=== PATIENT | female | born 1950 | race Caucasian/White ===

== ENCOUNTER 2017-06-28 06:14 | Inpatient (IN) | payer MEDICARE, OTHER, SELFPAY ==
[2017-06-28] VITALS (11 sets, daily range): BP systolic 121–148; BP diastolic 48–88; PULSE 71–82; RESP 16–22; TEMP 36.8–37; O2SAT 84–99; BMI 25.9; BMI 24.9
--- NOTE | 2017-06-28 06:34 | RAD_ITS ---
STUDY: X-RAY CHEST REASON FOR EXAM: Female, 66 years old. Nausea and vomitings. TECHNIQUE: Single AP portable view of the chest. Patient is rotated COMPARISON: 11/05/2015 FINDINGS: A right Mediport catheter tip remains in the mid SVC. There is hyperinflation of the lungs consistent with chronic obstructive lung disease (COPD). There is bibasilar chronic interstitial increased markings. There is no demonstrated pleural abnormality. Normal size heart. Normal mediastinum and andrea. Normal visualized pulmonary arteries. There is atherosclerotic tortuosity of the aortic arch and descending thoracic aorta. There is demineralization of the osseous structures. There is degenerative osteoarthritis of the bilateral shoulders. There is no demonstrated abnormality of the visualized soft tissue structures of the upper abdomen. RAD/Chest 1 View (Portable) IMPRESSION: Bibasilar chronic interstitial accentuation. COPD changes. No acute abnormality noted. Bilateral shoulder osteoarthritis. Electronically Signed: Makenzie Kern MD at 7:00 EDT Tel , Service support ,
--- NOTE | 2017-06-28 06:34 | EKG12_ITS ---
Test Reason : SOB Blood Pressure : / mmHG Vent. Rate : 083 BPM Atrial Rate : 083 BPM P-R Int : 138 ms QRS Dur : 070 ms QT Int : 368 ms P-R-T Axes : 068 -07 062 degrees QTc Int : 432 ms Normal sinus rhythm Normal ECG Confirmed by AGUSTÍN BROWN, AVELINO ([id number]), content editor KARLENE NEAL ([id number]) on 06/30/2017 2:48:25 PM Referred By: CLEMENTINA Confirmed By:AVELINO RANDOPLH MD
[2017-06-28 06:45] LABS: Absolute Lymphocyte Count 1.18 X10^3/ul (0.83-4.51); Eosinophil# 0.26 X10^3/uL; Eosinophils% 4.4 % (0-5); Hematocrit 33.8 % (37-47); Hemoglobin 11.2 g/dl (12.0-15.0); Lymphocyte # 1.18 X10^3/ul (4.0); Lymphocyte % 20.1 % (19-41); Mean Corp Hgb Conc 33.1 g/gl (32-36); Mean Corpuscular Hgb 29.8 pg (27.0-32.0); Mean Corpuscular Volume 89.9 fL (81-99); Monocyte# 0.45 X10^3/uL; Monocyte% 7.7 % (0-10); Neutrophil # 3.98 X10^3/uL (2.7-7.7); Neutrophil % 67.6 % (47-70); Platelet Count 211 K/mm3 (150-450); RBC Distribution Width CV 14.7 % (11.6-14.6); RBC Distribution Width SD 48.2 fl (35.1-43.9); Red Blood Count 3.76 M/mm3 (4.2-5.4); White Blood Count 5.9 K/mm3 (4.4-11.0)
[2017-06-28] MEDS: Ipratropium/Albuterol Sulfate 3 ML AMPUL.NEB INHALATION ×2 (06:47→13:54)
[2017-06-28] MEDS: Ondansetron 4 MG/2 ML Vial IV (06:48)
[2017-06-28 06:50] LABS: POSITIVE COUNT NO; POSITIVE DIFFERENTIAL NO; POSITIVE MORPHOLOGY NO
--- NOTE | 2017-06-28 07:09 | ED.VISSUMM ---
- ER Visit Summary Date of Service: 06/28/17 Chief Complaint: Flu History of Present Illness: The patient is a 66 F nausea, vomiting, and diarrhea that started today. She also reports a cough, fever, lightheadedness, and shortness of breath over the last 3 days. She believes her had the stomach flu and gave her the symptoms. She has a history of multiple myeloma and is on chemo. She also has a history of acid reflux, hypertension, and hypothyroidism. She is a former smoker. She denies any history of lung disease, congestive heart failure, or PE. Physical Examination: Vital signs unremarkable except for a pulse ox of 87% on room air. She is afebrile. She is alert and oriented and speaking in full sentences. Heart regular rate and rhythm. Lungs clear throughout all sequeda. Abdomen soft and nontender. Skin normal. Calves soft and supple. Pulses strong and equal. Test Results: EKG shows sinus rhythm at a rate of 83. No sign of acute ischemia or infarction pattern. Laboratory studies, influenza testing, and chest x-ray pending. Emergency Department Course and Treatment: Patient presents with infectious symptoms. This is likely a gastroenteritis or other viral syndrome. I am concerned because she has hypoxia. She is a former smoker, but denies home oxygen use or a history of hypoxia. She is not having chest pain or leg swelling. I suspect she has some underlying degree of COPD which is worse with the infectious process. She did receive oxygen by nasal cannula. She was 95% on 2 L. She was breathing comfortably. She received a DuoNeb as well as a fluid bolus and Zofran. Given her history of multiple myeloma and chemotherapy as well as her symptoms with hypoxia, she will likely need admission. Further results are pending at the time of this dictation. The oncoming physician will check the results, treat, and make the final disposition. Treatment Plan: As above Disposition: Pending evaluation Impression: 1. Nausea, vomiting, and diarrhea 2. Hypoxia This note was generated with [employer] software. It may contain incorrect words, spelling, and punctuation that were not noted in review of the chart prior to signing ED Disposition - Plan for ED Patient: Chief Complaint: Nausea/Vomiting/Diarrhea Referrals: Care Physician,No Primary [Primary Care Provider] -
[2017-06-28 07:12] LABS: Anion Gap 6 (5-15); BUN 17 mg/dL (7-18); BUN/Creat Ratio 21.7 RATIO (10-20); Calcium,Total 8.1 mg/dL (8.5-10.1); Chloride 101 mmol/L (98-107); Creatinine, Serum 0.78 mg/dL (0.55-1.02); EST Glomerular Filtration Rate 77 mL/min (>60); Est Glom Filt Rate - Afr Amer 94 mL/min (>60); Estimated Creatinine Clearance 48.45 ml/min; Glucose 97 mg/dL (74-106); Potassium 3.9 mmol/L (3.5-5.1); Sodium Level 134 mmol/L (136-145)
--- NOTE | 2017-06-28 07:14 | ED.DCSUM_ITS ---
- ER Visit Summary Date of Service: 06/28/17 Chief Complaint: Flu History of Present Illness: The patient is a 66 F nausea, vomiting, and diarrhea that started today. She also reports a cough, fever, lightheadedness, and shortness of breath over the last 3 days. She believes her had the stomach flu and gave her the symptoms. She has a history of multiple myeloma and is on chemo. She also has a history of acid reflux, hypertension, and hypothyroidism. She is a former smoker. She denies any history of lung disease , congestive heart failure, or PE. Physical Examination: Vital signs unremarkable except for a pulse ox of 87% on room air. She is afebrile. She is alert and oriented and speaking in full sentences. Heart regular rate and rhythm. Lungs clear throughout all esqueda. Abdomen soft and nontender. Skin normal. Calves soft and supple. Pulses strong and equal. Test Results: EKG shows sinus rhythm at a rate of 83. No sign of acute ischemia or infarction pattern. Laboratory studies, influenza testing, and chest x-ray pending. Emergency Department Course and Treatment: Patient presents with infectious symptoms. This is likely a gastroenteritis or other viral syndrome. I am concerned because she has hypoxia. She is a former smoker, but denies home oxygen use or a history of hypoxia. She is not having chest pain or leg swelling. I suspect she has some underlying degree of COPD which is worse with the infectious process. She did receive oxygen by nasal cannula. She was 95% on 2 L. She was breathing comfortably. She received a DuoNeb as well as a fluid bolus and Zofran. Given her history of multiple myeloma and chemotherapy as well as her symptoms with hypoxia, she will likely need admission. Further results are pending at the time of this dictation. The oncoming physician will check the results, treat, and make the final disposition. Treatment Plan: As above Disposition: Pending evaluation Impression: 1. Nausea, vomiting, and diarrhea 2. Hypoxia This note was generated with [employer] software. It may contain incorrect words, spelling, and punctuation that were not noted in review of the chart prior to signing ED Disposition - Plan for ED Patient: Chief Complaint: Nausea/Vomiting/Diarrhea Referrals: Care Physician,No Primary [Primary Care Provider] -
[2017-06-28 08:25] LABS: BNP,B-Type NATRIURETIC PEPTIDE 4.9 pg/mL (0-100)
--- NOTE | 2017-06-28 08:49 | HP.PCM_ITS ---
Problem List (1) Viral gastroenteritis Status: Acute (2) Influenza B Status: Acute (3) GERD (gastroesophageal reflux disease) Status: Chronic (4) HTN (hypertension) Status: Chronic (5) Hypothyroid Status: Chronic (6) Multiple myeloma Status: Chronic History of Present Illness Date of Admission: 06/28/17 Chief Complaint: Intractable with nausea vomiting and diarrhea The patient is a 66 year old F with past medical history is none for multiple myeloma currently in remission, hypertension GERD hypothyroidism who presents with intractable nausea vomiting associated with diarrhea. Patient symptoms started 3 days prior to her admission with generalized body aches as well as intermittent fever and chills. On the morning of her presentation woke up with sudden onset of nausea around 3 AM. Patient in addition had significant vomiting associated with diarrhea. She felt lightheaded and had to call the squad to be brought in to the ED. Evaluation in the ED was consistent with influenza B admitted to regular nursing floor for subsequent management. Past Medical History Past Medical History (Chronic Problems): Chronic Problems Hypothyroid (Chronic) GERD (gastroesophageal reflux disease) (Chronic) HTN (hypertension) (Chronic) Multiple myeloma (Chronic) Allergies No Known Allergies Allergy (Verified 06/28/17 06:18) Home Medications: Ambulatory Orders Medication Instructions Recorded Aspirin E.C. [Ecotrin] 81 mg PO DAILY@0800 05/14/14 Atenolol [Tenormin (beta anthony)] 25 mg PO DAILY 05/14/14 Levothyroxine [Synthroid] 125 mcg PO DAILY 05/14/14 Lisinopril [Zestril] 10 mg PO BID 05/14/14 Multivit with Calcium,Iron,Min 1 each PO DAILY 05/14/14 [Multiple Vitamins For Women] Omeprazole [Prilosec] 20 mg PO BID 05/14/14 Oxybutynin [Ditropan] 5 mg PO BID 05/14/14 buPROPion XL [Wellbutrin Xl] 150 mg PO DAILY 05/14/14 Acyclovir [Zovirax] 400 mg PO BID 11/05/15 Surgical History: no surgical history Psychiatric History: No pertinent psych hx CLUTCH REBUILDER History: No pertinent CLUTCH REBUILDER history Smoking Status: Former smoker - *Family History Maternal History Items: No pertinent history Review of Systems Constitutional: Reports: Fever, Malaise, Fatigue HEENT: Denies: Head Aches, Sinus Congestion, Sinus Drainage Cardiovascular: Denies: Chest Pain, Orthopnea, Palpitations, Paroxysmal Noc. Dyspnea Respiratory: Denies: Cough, Shortness of breath at rest, Shortness of breath upon exertion, Sputum production Gastrointestinal: Reports: Diarrhea, Nausea, Vomiting Genitourinary: Denies: Dysuria, Frequency, Hematuria, Urgency Musculoskeletal: Denies: Joint Pain, Joint Tenderness Skin: Denies: Rash Neurological: Denies: Focal weakness, Numbness, Tingling Psychiatric: Denies: Homicidal Ideations, Suicidal Ideations Hematologic/ Lymphatic: Denies: Easy Bruising, Easy Bleeding VTE Information - Inpt Only VTE Present on Admission: No VTE Mechan Device Prophylaxis: Knee High ERICK Hose VTE Pharm Prophylaxis ordered?: Yes Patient Problems: Active and Suspected Problems Viral gastroenteritis (Acute) Influenza B (Acute) Objective: GENERAL: Patient appears ill looking HEENT: Clear conjunctiva, NECK; supple, normal thyroid, CHEST: Diminished to auscultation bilaterally, HEART: Regular S1 S2, no audible murmurs ABDOMEN: soft, non-tender, normoactive bowel sounds, RECTAL: deferred EXTREMITIES: No edema, no clubbing, HOME APPLIANCES MECHANIC: Awake, no lateralizing signs. SKIN: No lesions no erythema, - Physical Exam Vital Signs Temp Pulse Resp BP Pulse Ox 98.4 F 79 18 148/69 H 99 06/28/17 06:15 06/28/17 06:59 06/28/17 06:59 06/28/17 06:15 06/28/17 06:59 Oxygen Flow Rate (L/min) 2 Oxygen Delivery Method Nasal Cannula Weight: 70.8 kg Body Mass Index (BMI) 25.9 Microbiology Past 72 Hours 06/28/17 06:45 Influenza Types A,B Direct FA (EMEKA) - Final Mucosa - Nose Influenzae B Laboratory Tests Past 24 Hrs 06/28/17 06/28/17 06/28/17 06:30 06:30 06:30 WBC 5.9 RBC 3.76 L Hgb 11.2 L Hct 33.8 L MCV 89.9 MCH 29.8 MCHC 33.1 RDW 14.7 H RDW Differential 48.2 H Plt Count 211 MPV 10.0 Immature Gran % (Auto) 0.200 Neut % (Auto) 67.6 Lymph % (Auto) 20.1 [place] % (Auto) 7.7 Eos % (Auto) 4.4 Baso % (Auto) 0.0 Absolute Neuts (auto) 4.0 Absolute Lymphs (auto) 1.18 Total Counted Not Reportable Sodium 134 L Potassium 3.9 Chloride 101 Carbon Dioxide 27.0 Anion Gap 6 BUN 17 Creatinine 0.78 Estim Creat Clear Calc 48.45 Est GFR (MDRD) Af Amer 94 Est GFR (MDRD) Non-Af 77 BUN/Creatinine Ratio 21.7 H Glucose 97 Calcium 8.1 L Troponin I < 0.02 B-Natriuretic Peptide 4.9 Assessment/Plan Active and Suspected Problems Viral gastroenteritis (Acute) Influenza B (Acute) Patient is a 66-year-old lady admitted with progressive generalized weakness associated with nausea vomiting diarrhea found to have influenza B on admission 1. Acute influenza B infection: Patient has been admitted to a regular nursing floor for symptomatic management with IV fluids pain meds as well as antinausea medications. Patient was started on Tamiflu on admission 2. Acute viral gastroenteritis secondary to patient influenza B infection 3. Hypertension-blood pressure controlled, home medications continued with dose adjustment as needed 4. Hypothyroidism-patient is on levothyroxine home dose continued 5. GERD on PPI 6. Mild hyponatremia secondary to hypovolemic hyponatremia as a result of above 7. DVT prophylaxis SC Lovenox Code Visit Inpatient E&M: 59318 Init Hosp L3
--- NOTE | 2017-06-28 08:49 | ED.DCSUM_ITS ---
- ER Visit Summary Date of Service: 06/28/17 Chief Complaint: [] History of Present Illness: The patient is a 66 F [] Physical Examination: [] Test Results: [] Emergency Department Course and Treatment: [] Dr. Elizabeth dictating the patient' s remained stable the lab studies chest x-rays generally unremarkable see those reports she remains hemodynamically stable given all of the above the hypoxia vomiting diarrhea the influenza positivity will arrange for admission for further management spoke with the hospitalist they will see the patient for admission Treatment Plan: [] Disposition: [] Admit stable Impression: [] Influenza, cough hypoxia on room air, vomiting diarrhea, history of multiple myeloma on chemotherapy This note was generated with [email or web address] dictation software. It may contain incorrect words, spelling, and punctuation that were not noted in review of the chart prior to signing ED Disposition - Plan for ED Patient: Chief Complaint: Nausea/Vomiting/Diarrhea Referrals: Care Physician,No Primary [NON-STAFF] -
[2017-06-28] MEDS: guaiFENesin 1,200 MG Tablet 1200 MG PO (12:29)
[2017-06-28] MEDS: buPROPion (XL) 150 MG TABLET.XL PO (12:29)
[2017-06-28] MEDS: Oseltamivir Phosphate 75 MG Capsule PO (12:29)
[2017-06-28] MEDS: Oxybutynin 5 MG Tablet PO (12:30)
[2017-06-28] MEDS: Acyclovir 200 MG Capsule 400 MG PO (12:30)
[2017-06-28] MEDS: Multivitamins,Ther W-Minerals Tablet 1 TABLET PO (12:30)
[2017-06-28] MEDS: Atenolol 25 MG Tablet PO (12:30)
[2017-06-28] MEDS: Pantoprazole Sodium 20 MG Tablet PO (12:30)
[2017-06-28] MEDS: Famotidine 20 MG Tablet PO ×2 (12:30)
[2017-06-28] MEDS: Lisinopril 10 MG Tablet PO (12:31)
[2017-06-28] MEDS: Enoxaparin 40 MG/0.4 ML Syringe SC (12:32)
--- NOTE | 2017-06-28 17:15 | NURSING ---
in to talk w/ patient as she verbalized to BOWLING TEACHER she wants to be discharged or she will leave anyway. This was also relayed to primary RN. Pt verbalized that she hasn't been able to sleep in day. Verbalized that she wants to be discharged that we are doing nothing for her she couldn't do at home. Discussed oxygen level with patient including that she required o2 to maintain adequate spo2. pt continued that she wanted discharge and refused to elaborate if there was something this nurse could do to ease her stay. This nurse verbalized she would inform for of her request for discharge. Patient also informed of right to Leave A.M.A. pt verbalized she wished for this nurse to inform Dr. Carreon that she is leaving not that she wants to. Pt informed this nurse will have A.M.A. forms brought back to her.
--- NOTE | 2017-06-28 17:33 | NURSING ---
pt adamant she is leaving to go home. states she is tired of not getting any rest/sleep and being disturbed every 15 minutes. educated pt on risks/ramifications/safety/breathing implications/impairments in health alterations. pt states i have been living with multiple myleoma for 7 years now, i could at any time so this is nothing new. pt states she phoned her spouse to come pick her up- pt states just wheel me to the ER and he can take me home. informed pt that if she chooses to leave it will be against medical advice and staff will not being wheeling pt to ER for discharge, pt will have to arrange per self. pt states are you done yet? pt refuses to wear oxygen, is alert and oriented and states she understands risks/ramifications. pt states she does not want nurse to discuss situation with her spouse this is supposed to be private. notified.
--- NOTE | 2017-06-28 17:47 | NURSING ---
SPOKE WITH FIDELINA NARAYANAN NURSING MACHINE PAN GREASER, UPDATED ON PT CONDITION/STATUS. AWAITING TO HEAR BACK FROM DR VARGAS WHO HAS BEEN PAGED BY MARCO NARAYANAN.
--- NOTE | 2017-06-28 17:48 | NURSING ---
paged though blacksmith hammer operator as no return call.
--- NOTE | 2017-06-28 17:54 | NURSING ---
DR. Rasheed paged, covering. He returned call and talking w/ Primary RN
[2017-06-28] MEDS: 0.9% NaCl Peripheral Flush Adult/Peds IV (18:09)
--- NOTE | 2017-06-28 18:10 | NURSING ---
pt to bathroom then back to bed. pt agrees to phone her spouse to provide him directions to come up to med-surg floor to pick her up for going home. pt giving male on telephone verbal directions and informs him he needs to come to the room to escort me, i'm not staying. hangs up the phone and states he isn't very happy pt declines to engage any further in conversation.
--- NOTE | 2017-06-29 11:01 | PCM.DC.SUM ---
Discharge Date and Diagnosis Date of Admission: 06/28/17 Date of Discharge: 06/28/17 - Primary Discharge Diagnosis influenza B - Secondary Discharge Diagnosis Chronic Problems Hypothyroid (Chronic) GERD (gastroesophageal reflux disease) (Chronic) HTN (hypertension) (Chronic) Multiple myeloma (Chronic) Hospital Course and Treatment Operations: None Summary of Care Provided: Patient is a 66-year-old lady admitted with progressive generalized weakness associated with nausea vomiting diarrhea found to have influenza B on admission 1. Acute influenza B infection: Patient has been admitted to a regular nursing floor for symptomatic management with IV fluids pain meds as well as antinausea medications. Patient was started on Tamiflu on admission, SIGNED OUT AMA ON THE SAME DAY OF HER ADMISSION 2. Acute viral gastroenteritis secondary to patient influenza B infection 3. Hypertension-blood pressure controlled, home medications continued with dose adjustment as needed 4. Hypothyroidism-patient is on levothyroxine home dose continued 5. GERD on PPI 6. Mild hyponatremia secondary to hypovolemic hyponatremia as a result of above 7. DVT prophylaxis SC Lovenox Home Medications: Medications to take at Discharge Aspirin E.C. [Ecotrin] 81 mg PO DAILY@0800 05/14/14 Atenolol [Tenormin (beta anthony)] 25 mg PO DAILY 05/14/14 Levothyroxine [Synthroid] 125 mcg PO DAILY 05/14/14 Lisinopril [Zestril] 10 mg PO BID 05/14/14 Multivit with Calcium,Iron,Min [Multiple Vitamins For Women] 1 each PO DAILY 05/14/14 Omeprazole [Prilosec] 20 mg PO BID 05/14/14 Oxybutynin [Ditropan] 5 mg PO BID 05/14/14 buPROPion XL [Wellbutrin Xl] 150 mg PO DAILY 05/14/14 Acyclovir [Zovirax] 400 mg PO BID 11/05/15 Primary Care Physician: Care Physician,No Primary [NON-STAFF] - Disposition: Against Medical Advice Minutes spent on discharge:: 45 Medical Necessity - Tobacco Use Smoking Status: Former smoker Meaningful Use Info Meaningful Use Diagnoses (Choose all that apply): None applicable Code Visit OBSV E&M: 83455 Observ/hosp same date L3
--- NOTE | 2017-06-29 11:06 | DS.PCM_ITS ---
Discharge Date and Diagnosis Date of Admission: 06/28/17 Date of Discharge: 06/28/17 - Primary Discharge Diagnosis influenza B - Secondary Discharge Diagnosis Chronic Problems Hypothyroid (Chronic) GERD (gastroesophageal reflux disease) (Chronic) HTN (hypertension) (Chronic) Multiple myeloma (Chronic) Hospital Course and Treatment Operations: None Summary of Care Provided: Patient is a 66-year-old lady admitted with progressive generalized weakness associated with nausea vomiting diarrhea found to have influenza B on admission 1. Acute influenza B infection: Patient has been admitted to a regular nursing floor for symptomatic management with IV fluids pain meds as well as antinausea medications. Patient was started on Tamiflu on admission, SIGNED OUT AMA ON THE SAME DAY OF HER ADMISSION 2. Acute viral gastroenteritis secondary to patient influenza B infection 3. Hypertension-blood pressure controlled, home medications continued with dose adjustment as needed 4. Hypothyroidism-patient is on levothyroxine home dose continued 5. GERD on PPI 6. Mild hyponatremia secondary to hypovolemic hyponatremia as a result of above 7. DVT prophylaxis SC Lovenox Home Medications: Medications to take at Discharge Aspirin E.C. [Ecotrin] 81 mg PO DAILY@0800 05/14/14 Atenolol [Tenormin (beta anthony)] 25 mg PO DAILY 05/14/14 Levothyroxine [Synthroid] 125 mcg PO DAILY 05/14/14 Lisinopril [Zestril] 10 mg PO BID 05/14/14 Multivit with Calcium,Iron,Min [Multiple Vitamins For Women] 1 each PO DAILY 03/30 Omeprazole [Prilosec] 20 mg PO BID 05/14/14 Oxybutynin [Ditropan] 5 mg PO BID 05/14/14 buPROPion XL [Wellbutrin Xl] 150 mg PO DAILY 05/14/14 Acyclovir [Zovirax] 400 mg PO BID 11/05/15 Primary Care Physician: Care Physician,No Primary [NON-STAFF] - Disposition: Against Medical Advice Minutes spent on discharge:: 45 Medical Necessity - Tobacco Use Smoking Status: Former smoker Meaningful Use Info Meaningful Use Diagnoses (Choose all that apply): None applicable Code Visit OBSV E&M: 03394 Observ/hosp same date L3
== END 2017-06-28 18:31 | disposition left against medical advice (07) | DRG 866 ==
LOC: ED 08:13 → MS3 09:30
PROVIDERS: Admitting Provider Internal Medicine; Emergency Provider Emergency Medicine; Family Provider Family Medicine; PCP Family Medicine; Visit Provider Internal Medicine
DX: J10.2 Influenza due to other identified influenza virus with gastrointestinal manifestations (principal); E87.1 Hypo-osmolality and hyponatremia; A08.4 Viral intestinal infection, unspecified; R09.02 Hypoxemia; E86.1 Hypovolemia; I10 Essential (primary) hypertension; E03.9 Hypothyroidism, unspecified; K21.9 Gastro-esophageal reflux disease without esophagitis; Z79.82 Long term (current) use of aspirin; Z79.899 Other long term (current) drug therapy; Z85.79 Personal history of other malignant neoplasms of lymphoid, hematopoietic and related tissues; Z92.21 Personal history of antineoplastic chemotherapy; Z87.891 Personal history of nicotine dependence
CPT/HCPCS: 71045; 80048; 83880; 84484; 85025; 87804; 93005; 94640; 94667; 99285; J7030; J7040; A4216; J2405

== ENCOUNTER 2017-06-30 21:03 | Emergency (ER) | payer MEDICARE, OTHER, SELFPAY ==
[2017-06-30 21:03] VITALS: BP 171/72; PULSE 99; RESP 20; TEMP 37.4; O2SAT 85; BMI 25.0
--- NOTE | 2017-06-30 21:23 | RAD_ITS ---
STUDY: X-RAY CHEST REASON FOR EXAM: Female, 66 years old. Weakness and flu TECHNIQUE: Frontal and lateral views of the chest. COMPARISON: 06/28/2017 FINDINGS: Right chest wall port. Clips in the neck. COPD without acute alveolar disease. There is no demonstrated pleural abnormality. Normal size heart. Normal mediastinum and andrea. Normal visualized pulmonary arteries. Normal visualized aortic arch and descending thoracic aorta. Normal visualized thoracic spine. Stable deformity of the left humerus. There is no demonstrated abnormality of the visualized soft tissue structures of the upper abdomen. RAD/Chest PA and Lateral IMPRESSION: COPD without acute alveolar disease. Electronically Signed: Gil Mcguire MD at 23:01 EDT Tel , Service support ,
--- NOTE | 2017-06-30 21:27 | ED.DCSUM_ITS ---
- ER Visit Summary Date of Service: 06/30/17 Chief Complaint: Generalized weakness History of Present Illness: The patient is a 66 F history of multiple myeloma. 2 days ago diagnosed with influenza B along with her also. She was actually admitted for 1-2 days. Basically now has been at home. Says she feels short of breath and generalized weakness. Also fever. Cough of yellowish phlegm. Also diarrhea. No vomiting today. No chest or abdominal pain. Physical Examination: Older female vital signs are stable except for a pulse ox of 85% on room air consistent with hypoxia. Temperature 994. She does not look septic. Clinically she looks dehydrated. No distress. H EENT exam dry mucous membranes. Neck nontender no lymphadenopathy. No JVD. Lungs clear to auscultation bilaterally. Heart regular rhythm no murmur. Chest wall nontender. Abdomen soft and nontender normal bowel sounds no peritoneal signs. Moving all 4 extremities. Calves nontender without edema or cords. Neurologically she is awake and alert without focal deficits. Skin unremarkable. Test Results: Chest x-ray chronic changes consistent with COPD but no acute process. No pneumonia. Read by myself and the radiologist. CBC shows a white count 3.5. H&H 10 and 32 which is her baseline. No bands. Electrolytes unremarkable. Normal gap and creatinine. Emergency Department Course and Treatment: Older female with influenza B. Clinically looks dehydrated. Will be treated with IV fluids and p.o. Tylenol. Treatment Plan: Multiple repeat exams patient is doing well currently 0005. She feels comfortable to be discharged home. She was given a liter fluid here and Tylenol. She was given a DuoNeb aerosol treatment. We week checked her pulse ox remained 85 [address] in a hallway but she tolerated this well. I long discussion with this she said they have a pulse ox at home and her normal oxygen level was 85. That is what it was when she was admitted the other day. She is not on any home O2. She denied discussed following up with her primary care physician and she may be able to qualify for home O2. Disposition: Discharge Impression: Recent diagnosis of influenza B Generalized weakness Hypoxia History of multiple myeloma Chronic hypoxia This note was generated with [employer]*ation software. It may contain incorrect words, spelling, and punctuation that were not noted in review of the chart prior to signing ED Disposition - Plan for ED Patient: Chief Complaint: General Illness Referrals: Addi Elizabeth MD [Primary Care Provider] -
[2017-06-30] MEDS: Ipratropium/Albuterol Sulfate 3 ML AMPUL.NEB INHALATION (21:33)
[2017-06-30 21:34] VITALS: PULSE 88; RESP 16
[2017-06-30 22:03] VITALS: BP 115/67; PULSE 92; RESP 14; O2SAT 95
[2017-06-30] MEDS: Acetaminophen 500 MG Tablet 1000 MG PO (22:19)
[2017-06-30] MEDS: 0.9% Normal Saline 1,000 ML 1000 ML IV (22:19)
[2017-06-30 22:22] LABS: Absolute Lymphocyte Count 1.56 X10^3/ul (0.83-4.51); Absolute Neutrophil Count 4.3 X10^3/uL (2.0-7.7); Eosinophil# 0.17 X10^3/uL; Eosinophils% 2.6 % (0-5); Hematocrit 32.5 % (37-47); Hemoglobin 10.8 g/dl (12.0-15.0); Lymphocyte # 1.56 X10^3/ul (4.0); Lymphocyte % 24.2 % (19-41); Mean Corp Hgb Conc 33.2 g/gl (32-36); Mean Corpuscular Hgb 29.8 pg (27.0-32.0); Mean Corpuscular Volume 89.5 fL (81-99); Mean Platelet Vol. 9.7 fl (6.2-12.0); Monocyte# 0.43 X10^3/uL; Monocyte% 6.7 % (0-10); Neutrophil # 4.28 X10^3/uL (2.7-7.7); Neutrophil % 66.3 % (47-70); Platelet Count 221 K/mm3 (150-450); RBC Distribution Width CV 14.6 % (11.6-14.6); Red Blood Count 3.63 M/mm3 (4.2-5.4); White Blood Count 6.5 K/mm3 (4.4-11.0)
[2017-06-30 22:26] LABS: POSITIVE COUNT NO; POSITIVE DIFFERENTIAL NO; POSITIVE MORPHOLOGY NO
[2017-06-30 22:39] LABS: Anion Gap 10 (5-15); BUN 12 mg/dL (7-18); BUN/Creat Ratio 17.2 RATIO (10-20); Calcium,Total 7.5 mg/dL (8.5-10.1); Chloride 100 mmol/L (98-107); EST Glomerular Filtration Rate 89 mL/min (>60); Est Glom Filt Rate - Afr Amer 107 mL/min (>60); Estimated Creatinine Clearance 48.45 ml/min; Glucose 79 mg/dL (74-106); Potassium 3.5 mmol/L (3.5-5.1); Sodium Level 136 mmol/L (136-145)
--- NOTE | 2017-07-01 00:09 | ED.DEP ---
ED Disposition - Plan for ED Patient: Disposition: Home or Assisted Living Chief Complaint: General Illness Instructions: ED Flu Referrals: Addi Elizabeth MD [Primary Care Provider] - As soon as possible Additional Instructions: Plenty of fluids and rest. Tylenol for fever. Call and follow-up your primary care physician. Your pulse ox equals 85% which is low. You can discuss with your primary care physician and they may be able do further testing to see if you qualify for home oxygen.
[2017-07-01 00:30] VITALS: BP 124/76; PULSE 81; RESP 18; O2SAT 95
== END 2017-07-01 00:31 | disposition home or self-care (01) ==
PROVIDERS: Emergency Provider Emergency Medicine; Family Provider Family Medicine; PCP Family Medicine
DX: J10.1 Influenza due to other identified influenza virus with other respiratory manifestations (principal); R53.1 Weakness; R09.02 Hypoxemia; E86.0 Dehydration; R19.7 Diarrhea, unspecified; Z79.82 Long term (current) use of aspirin; Z79.899 Other long term (current) drug therapy; Z85.79 Personal history of other malignant neoplasms of lymphoid, hematopoietic and related tissues
CPT/HCPCS: 36591; 71046; 80048; 85025; 94640; 96360; 99283; J7030

== ENCOUNTER 2017-07-02 13:39 | Emergency (ER) | payer MEDICARE, OTHER, SELFPAY ==
[2017-07-02 13:40] VITALS: BP 132/86; PULSE 70; RESP 16; TEMP 36.7; O2SAT 85; BMI 24.5
[2017-07-02 13:55] VITALS: BP 124/78; PULSE 72; RESP 18; O2SAT 97
[2017-07-02] MEDS: MethylPREDNISolone 125 MG/2 ML Vial IV (14:26)
[2017-07-02] MEDS: Ipratropium/Albuterol Sulfate 3 ML AMPUL.NEB INHALATION (14:27)
[2017-07-02 14:30] VITALS: PULSE 67; RESP 18
[2017-07-02 14:31] LABS: Absolute Lymphocyte Count 1.78 X10^3/ul (0.83-4.51); Absolute Neutrophil Count 3.9 X10^3/uL (2.0-7.7); Basophil# 0.01 X10^3/uL; Basophil% 0.2 % (0-1); Eosinophil# 0.18 X10^3/uL; Eosinophils% 2.9 % (0-5); Hematocrit 31.5 % (37-47); Hemoglobin 10.4 g/dl (12.0-15.0); Lymphocyte # 1.78 X10^3/ul (4.0); Lymphocyte % 28.3 % (19-41); Mean Corpuscular Hgb 29.5 pg (27.0-32.0); Mean Corpuscular Volume 89.5 fL (81-99); Monocyte% 6.3 % (0-10); Neutrophil % 61.8 % (47-70); POSITIVE COUNT NO; POSITIVE DIFFERENTIAL NO; POSITIVE MORPHOLOGY NO; Platelet Count 243 K/mm3 (150-450); RBC Distribution Width CV 14.8 % (11.6-14.6); RBC Distribution Width SD 47.9 fl (35.1-43.9); Red Blood Count 3.52 M/mm3 (4.2-5.4); White Blood Count 6.3 K/mm3 (4.4-11.0)
[2017-07-02 14:39] LABS: Anion Gap 6 (5-15); BUN 11 mg/dL (7-18); BUN/Creat Ratio 16.5 RATIO (10-20); Calcium,Total 7.7 mg/dL (8.5-10.1); Chloride 101 mmol/L (98-107); Creatinine, Serum 0.67 mg/dL (0.55-1.02); EST Glomerular Filtration Rate 94 mL/min (>60); Est Glom Filt Rate - Afr Amer 113 mL/min (>60); Estimated Creatinine Clearance 48.45 ml/min; Glucose 89 mg/dL (74-106); Potassium 3.5 mmol/L (3.5-5.1); Sodium Level 136 mmol/L (136-145)
--- NOTE | 2017-07-02 14:50 | RAD_ITS ---
STUDY: X-RAY CHEST REASON FOR EXAM: Female, 66 years old. Cough. Hypoxia. TECHNIQUE: PA and lateral views of the chest. COMPARISON: Comparison is made with prior study dated June 30, 2017. FINDINGS: EKG electrodes are seen. A right-sided portacatheter is seen with the tip at the junction of the superior vena cava and right atrium. Increased markings at the lung bases with areas of confluence worse on the right side. This is suggestive of either atelectasis and/or early infiltrate. Follow-up is recommended. Hyperinflation. There is no demonstrated pleural abnormality. Normal size heart. Normal mediastinum and andrea. Normal visualized pulmonary arteries. There is atherosclerotic tortuosity of the aortic arch and descending thoracic aorta. There is demineralization of the osseous structures. There is degenerative osteoarthritis of the bilateral shoulders. There is no demonstrated abnormality of the visualized soft tissue structures of the upper abdomen. RAD/Chest PA and Lateral IMPRESSION: Increased markings at the lung bases worse on the right side. This may represent either atelectasis and/or early infiltrates. Follow-up is recommended. Electronically Signed: Braulio Angelo MD at 15:21 EDT Tel [phone], Service support ,
[2017-07-02 15:06] VITALS: BP 130/67; PULSE 68; RESP 13; O2SAT 96
--- NOTE | 2017-07-02 15:15 | CM.ED ---
Addendum entered by Miesha Monteiro 07/02/17 16:00: Note: Patient states she is mobile in the home. She leaves the home to go grocery shopping and to appointments. Original Note: CM consulted for home oxygen setup. Patient states that she prefers to use [facility] for home oxygen. Clinicals and prescription faxed to [facility]. Josefa, with intake, took my number to provide to their respiratory therapists for coordination of delivery and setup. Awaiting return call. CM will continue to follow for safe discharge planning.
--- NOTE | 2017-07-02 15:44 | ED.DCSUM_ITS ---
- ER Visit Summary Date of Service: 07/02/17 Chief Complaint: Flu History of Present Illness: The patient is a [address] Elizabeth and Dr. salomon. She reports that she has a cough began approximately 1 week ago. Is productive yellow sputum without blood. She reports is actually improving gets a little better every day. However, she reports that she is lightheaded. This increases when she stands. She has not passed out. She does complain of severe shortness of breath with any exertion. She denies any chest pain. No fever or chills. She does complain of generalized weakness. The patient was admitted to the hospital for this earlier this week and signed out AGAINST MEDICAL ADVICE. She reports that her pulse ox has been in the 80s at home and she has never been on home O2. She quit smoking approximately 5 years ago. He has used an inhaler in the past. But does not have one at this time. Physical Examination: Vitals: 98.0, 132/86, 67, 18, 85% on room air which is hypoxic. General: Well-nourished and well-developed. Head: Normocephalic atraumatic. Neck: Supple, no lymphadenopathy. No JVD. Nontender. Cardiovascular: Regular rate and rhythm. No murmurs. Respiratory: No respiratory distress. Mild wheezing bilaterally with greatly decreased air movement. Abdominal: Soft, nontender, nondistended, normal bowel sounds. No guarding, rebound, or peritoneal signs. Back: Nontender. Extremities: Nontender, no edema. Skin: Normal color, no rash. Neurologic: Alert and oriented ?3. Cranial nerves II through XII are intact. Normal strength and sensation. Psych: Normal affect. Test Results: CBC is marked for an H&H 10.4 and 31.5. Chem-7 is more for calcium 7.7. Chest x-ray is read by the radiologist increased markings at the lung bases bilaterally right greater than left. May represent atelectasis and/ or early infiltrate. In my opinion it looks essentially no different than yesterday except for technique. I do not believe that the patient has a post influenza pneumonia. She reports that her cough is improving. Emergency Department Course and Treatment: She was given albuterol Atrovent aerosols. Her breathing is much improved. She is given Solu-Medrol and 500 cc bolus of normal saline IV. She is resting comfortably. Treatment Plan: The patient again would like to go home. However, I discussed her that I do not feel that is a good idea to go home with hypoxia. Case management was able to arrange for her to have home O2. Patient will also be discharged on a 5 day burst of prednisone and albuterol MDI. Instructed to follow-up with her primary care physician in 3-5 days if not improving. Return to the emergency department for any worsening symptoms. Disposition: To home in improved and stable condition. Impression: 1. Hypoxia. 2. COPD. 3. Influenza B. This note was generated with [employer] dictation software. It may contain incorrect words, spelling, and punctuation that were not noted in review of the chart prior to signing ED Disposition - Plan for ED Patient: Chief Complaint: Dizziness Instructions: ED Flu Prescriptions: Albuterol Inhaler [Ventolin Hfa] 1 - 2 puff INHALATION Q4H PRN PRN #1 inhaler PRN Reason: Wheezing Prednisone [Deltasone] 60 mg PO DAILY #15 tablet Referrals: Addi Elizabeth MD [Primary Care Provider] - 3-5 Days if not improving
--- NOTE | 2017-07-02 16:03 | CM.ED ---
Call placed to [facility]. Respiratory therapist, Girish, informed that the patient is ready for discharge. Girish states they will deliver a portable tank to the ED and follow-up with setup at home.
[2017-07-02 17:08] VITALS: BP 107/85; PULSE 69; RESP 18; O2SAT 94
--- NOTE | 2017-07-02 17:09 | ED.RN ---
PT GIVEN WRITTEN AND VERBAL DISCHARGE INSTRUCTIONS AND HOME GOING PRESCRIPTIONS. PT EDUCATED, AND QUESTIONS FROM PT ADDRESSED. PT PORT D/C AND COVERED WITH 2X2 GAUZE DRESSING AND PAPER TAPE. PT PLACED ON HOME O2 AND [facility] AT BEDSIDE TO EXPLAIN USE TO PT AND SPOUSE. PT DRESSES SELF AND AMBULATES OUT OF DEPT. WITHOUT NEED FOR ASSISTANCE FROM STAFF.
== END 2017-07-02 17:14 | disposition home or self-care (01) ==
PROVIDERS: Emergency Provider Emergency Medicine; Family Provider Family Medicine; PCP Family Medicine
DX: R09.02 Hypoxemia (principal); J10.1 Influenza due to other identified influenza virus with other respiratory manifestations; J44.9 Chronic obstructive pulmonary disease, unspecified; I10 Essential (primary) hypertension; E03.9 Hypothyroidism, unspecified; Z85.79 Personal history of other malignant neoplasms of lymphoid, hematopoietic and related tissues; K21.9 Gastro-esophageal reflux disease without esophagitis; Z87.891 Personal history of nicotine dependence; R42 Dizziness and giddiness
CPT/HCPCS: 36591; 71046; 80048; 85025; 94640; 99283; J7040; A4216

== ENCOUNTER 2017-08-16 05:49 | Emergency (ER) | payer MEDICARE, OTHER, SELFPAY ==
[2017-08-16] VITALS (8 sets, daily range): BP systolic 131–204; BP diastolic 59–86; PULSE 75–87; RESP 12–19; TEMP 36.7; O2SAT 93–96; BMI 24.3
--- NOTE | 2017-08-16 06:02 | EKG12_ITS ---
Test Reason : DIZZINESS Blood Pressure : / mmHG Vent. Rate : 074 BPM Atrial Rate : 074 BPM P-R Int : 142 ms QRS Dur : 072 ms QT Int : 396 ms P-R-T Axes : 074 -11 063 degrees QTc Int : 439 ms Normal sinus rhythm Normal ECG Confirmed by AGUSTÍN BROWN, AVELINO ([id number]), editor in chief KARLENE NEAL ([id number] on 08/26/2017 6:49:06 PM Referred By: ELIZA Confirmed By:AVELINO RANDOLPH MD
--- NOTE | 2017-08-16 06:02 | CT_ITS ---
STUDY: CT BRAIN WITHOUT CONTRAST REASON FOR EXAM: Female, 66 years old. Dizziness, nausea since 2 days. History of hypertension, multiple myeloma. RADIATION DOSAGE (If Supplied By Facility): CTDIvol = ( 44.99 ) mGy, DLP = ( 711.75 ) mGycm TECHNIQUE: Transaxial CT imaging of the brain was performed without administration of intravenous contrast material. Individualized dose optimization techniques were used for this CT. COMPARISON: None. FINDINGS: Normal soft tissue structures. Normal calvarium. There is moderate cerebral atrophy with widening of the extra-axial spaces and ventricular dilatation. There are areas of decreased attenuation within the white matter tracts of the supratentorial brain, consistent with microvascular disease changes. There is no acute abnormality of the basal ganglia, thalami and brainstem. There is moderate cerebellar atrophy. There is no intracranial hemorrhage. There are no findings of an acute ischemic infarction. There is acute left sphenoid sinusitis. There is mucoperiosteal inflammatory disease of the bilateral ethmoid and maxillary sinuses and portion of the right frontal sinus, consistent with mild chronic sinusitis. Partial opacification of mastoid air cells. Possible left TMJ arthritis. CT/Brain/Head without Contrast IMPRESSION: 1. Chronic involutional and white matter ischemic changes of the brain. 2. No acute intracranial abnormality noted. 3. Acute left sphenoid sinusitis. Electronically Signed: Makenzie Kern MD at 7:04 EDT Tel , Service support ,
--- NOTE | 2017-08-16 06:05 | RAD_ITS ---
STUDY: X-RAY CHEST REASON FOR EXAM: Female, 66 years old. Shortness of breath/dyspnea. TECHNIQUE: Single AP portable view of the chest. COMPARISON: 07/02/2017 FINDINGS: A right-sided Port-A-Cath with the tip in the distal SVC is unchanged. There is hyperinflation of the lungs consistent with chronic obstructive lung disease (COPD). Mildly increased markings/subsegmental atelectasis at the lung basis again demonstrated. There is no demonstrated pleural abnormality. Normal size heart. A stable benign right cardiophrenic density. Normal mediastinum and andrea. Normal visualized pulmonary arteries. There is atherosclerotic tortuosity of the aortic arch and descending thoracic aorta. There is demineralization of the osseous structures. There is degenerative osteoarthritis of the left shoulder. There is no demonstrated abnormality of the visualized soft tissue structures of the upper abdomen. RAD/Chest 1 View (Portable) IMPRESSION: 1. Stable-appearing chest. No acute cardiopulmonary abnormality noted. 2. COPD changes. Bibasilar chronic mild subsegmental atelectasis. 3. Left glenohumeral humeral osteoarthritis. Electronically Signed: Makenzie Kern MD at 6:33 EDT Tel , Service support ,
--- NOTE | 2017-08-16 06:06 | ED.VISSUMM ---
- ER Visit Summary Date of Service: 08/16/17 Chief Complaint: [] Dizziness, high blood pressure, shortness of breath History of Present Illness: The patient is a 66 F [] complaining of dizziness, elevated blood pressure, shortness of breath beginning 4 hours ago. Her reports that her pulse ox at home was 88% on room air. She is reportedly on oxygen at home only as needed. She does report a history of multiple myeloma. She reports being compliant with her lisinopril and her metoprolol. Denies chest pain. Denies fevers. No other complaints. Physical Examination: [] 66-year-old female in no acute distress. Blood pressure 204/86. Pulse ox 93% on 2 L nasal cannula. Remainder of vitals are within normal limits. Cardiovascular exam is regular rate and rhythm. Lungs are clear to auscultation. Abdomen is soft and nontender. There is no lower extremity edema. Remainder of exam is unremarkable. Test Results: [] EKG: Normal sinus rhythm, rate 74 without ischemic changes, ectopy or interval abnormalities. CT head: Negative per my interpretation. Labs: CBC, BMP, troponin all within normal limits. Emergency Department Course and Treatment: [] Patient given intravenous hydralazine for systolic blood pressure over 200. Patient had an initial workup for hypertensive urgency and dyspnea. Repeat blood pressure 30 minutes of her hydralazine was 130 systolic. Patient reported significant improvement in her dizziness. There was no signs of end organ damage based off the diagnostic and laboratory workup performed. Patient reported improvement in her shortness of breath. She was ambulated on 2 L of oxygen and maintained a pulse ox above 96%. She was then placed back in her bed with the oxygen off and maintain a pulse ox at 95%. She does report having oxygen at home to use as needed. I encouraged her to use it should she have any further dyspnea. At this time she has no indication for admission, feels improved after her blood pressure was improved with antihypertensive medication. She was encouraged to follow-up with her primary care physician and return if symptoms worsen. Treatment Plan: [] Follow-up with PCP. Disposition: [] Discharge, stable. Impression: [] Hypertensive urgency Dizziness This note was generated with [employer] software. It may contain incorrect words, spelling, and punctuation that were not noted in review of the chart prior to signing <Karol Tobin - Last Filed: 08/16/17 06:59> - ER Visit Summary Date of Service: 08/16/17 Test Results: CT brain has returned and shows chronic involutional white matter ischemic changes of the brain. No acute intracranial abnormality noted. Acute left sphenoid sinusitis. Emergency Department Course and Treatment: Patient was turned over to me with labs pending. She is resting comfortably. Treatment Plan: I instructed her to use decongestants for the sinusitis. Follow-up with her primary care physician in 3-5 days if not improving. Return to the emergency department for any worsening symptoms. Disposition: To home in improved and stable condition. This note was generated with [employer] dictation software. It may contain incorrect words, spelling, and punctuation that were not noted in review of the chart prior to signing <Aditya Norman - Last Filed: 08/16/17 07:07> ED Disposition <Karol Tobin - Last Filed: 08/16/17 06:59> <Aditya Norman - Last Filed: 08/16/17 07:07> - Plan for ED Patient: Disposition: Home or Assisted Living Chief Complaint: Dizziness Instructions: Controlling High Blood Pressure, ED Dizziness [facility] Referrals: Addi Elizabeth MD [Primary Care Provider] -
[2017-08-16 06:10] LABS: Absolute Lymphocyte Count 2.67 X10^3/ul (0.83-4.51); Absolute Neutrophil Count 2.3 X10^3/uL (2.0-7.7); Basophil# 0.02 X10^3/uL; Basophil% 0.3 % (0-1); Eosinophil# 0.35 X10^3/uL; Eosinophils% 5.9 % (0-5); Hematocrit 30.8 % (37-47); Hemoglobin 10.3 g/dl (12.0-15.0); Lymphocyte # 2.67 X10^3/ul (4.0); Mean Corp Hgb Conc 33.4 g/gl (32-36); Mean Corpuscular Hgb 30.3 pg (27.0-32.0); Mean Corpuscular Volume 90.6 fL (81-99); Mean Platelet Vol. 10.3 fl (6.2-12.0); Monocyte# 0.63 X10^3/uL; Monocyte% 10.6 % (0-10); Neutrophil # 2.25 X10^3/uL (2.7-7.7); POSITIVE COUNT NO; POSITIVE DIFFERENTIAL NO; POSITIVE MORPHOLOGY NO; Platelet Count 211 K/mm3 (150-450); RBC Distribution Width CV 14.4 % (11.6-14.6); RBC Distribution Width SD 46.5 fl (35.1-43.9); White Blood Count 5.9 K/mm3 (4.4-11.0)
[2017-08-16] MEDS: hydrALAZINE 20 MG/ML Vial 10 MG IV (06:10)
[2017-08-16 06:28] LABS: Anion Gap 8 (5-15); BUN 17 mg/dL (7-18); BUN/Creat Ratio 26.9 RATIO (10-20); Calcium,Total 8.2 mg/dL (8.5-10.1); Chloride 105 mmol/L (98-107); Creatinine, Serum 0.63 mg/dL (0.55-1.02); EST Glomerular Filtration Rate 99 mL/min (>60); Est Glom Filt Rate - Afr Amer 120 mL/min (>60); Estimated Creatinine Clearance 48.45 ml/min; Glucose 87 mg/dL (74-106); Potassium 3.7 mmol/L (3.5-5.1); Sodium Level 139 mmol/L (136-145)
--- NOTE | 2017-08-16 06:59 | ED.DEP ---
ED Disposition - Plan for ED Patient: Disposition: Home or Assisted Living Chief Complaint: Dizziness Instructions: Controlling High Blood Pressure, ED Dizziness [facility] Referrals: Addi Elizabeth MD [Primary Care Provider] -
== END 2017-08-16 07:15 | disposition home or self-care (01) ==
PROVIDERS: Emergency Provider Emergency Medicine; Family Provider Family Medicine; PCP Family Medicine
DX: I16.0 Hypertensive urgency (principal); R06.00 Dyspnea, unspecified; R42 Dizziness and giddiness; Z72.0 Tobacco use; Z85.79 Personal history of other malignant neoplasms of lymphoid, hematopoietic and related tissues; Z79.51 Long term (current) use of inhaled steroids; Z79.82 Long term (current) use of aspirin; Z79.899 Other long term (current) drug therapy
CPT/HCPCS: 70450; 71045; 80048; 84484; 85025; 93005; 96374; 99285; A4216

== ENCOUNTER 2021-02-08 13:32 | Emergency (ER) | payer MEDICARE, OTHER, SELFPAY ==
[2021-02-08 13:34] VITALS: BP 135/82; PULSE 77; RESP 16; TEMP 36.3; O2SAT 100; BMI 20.5
[2021-02-08 16:02] LABS: Bacteria 0 SEEN /hpf (None Seen); Mucous, Urine 0 SEEN /hpf (<or=2+); Red Blood Cells-Urine 0 SEEN /hpf (0-5)
--- NOTE | 2021-02-08 16:11 | EDS_ITS ---
HPI History of Present Illness Chief Complaint: Fall Narrative Narrative: Patient is a 70-year-old female with past medical history of multiple myeloma. She states she lives at home alone. She reports that she has vertigo and has to walk with a cane secondary to persistent balance issues. She states that she lost her balance and fell about 10 days ago. She states this was from a standing position and that she hurt her left foot/ankle. She denies striking her head any loss of consciousness or blood thinner use. Patient states that she feels she is not caring for herself well at home. She states she talked to her family doctor who advised her to come to the ER for possible senior care placement or home health assistance. PFSH PFSH Home Medications Cetirizine Hcl [Zyrtec] 10 mg PO DAILY 08/16/17 [History Last Taken Unknown] acyclovir 400 mg PO BID 08/16/17 [History Last Taken Unknown] albuterol sulfate [Proair Hfa (SP)Vent Pts] 1 - 2 puff INHALATION Q4H PRN PRN 08/16/17 [History Last Taken Unknown] aspirin 81 mg PO DAILY@0800 08/16/17 [History Last Taken Unknown] dexamethasone [Decadron] 4 mg PO PRN PRN 08/16/17 [History Last Taken Unknown] fdjmbxgb-ijh-eziq-FA-lutein [Centrum Silver Women Tablet] 1 ea PO DAILY 08/16/17 [History Last Taken Unknown] naproxen-diphenhydramine [Aleve Pm Caplet] 1 ea PO QHS PRN 08/16/17 [History Last Taken Unknown] omeprazole 20 mg PO BID 08/16/17 [History Last Taken Unknown] ondansetron [Zofran Odt] 8 mg PO Q8H PRN PRN 08/16/17 [History Last Taken Unknown] oxybutynin chloride 5 mg PO BID 08/16/17 [History Last Taken Unknown] Allergy/AdvReac Type Severity Reaction Status Date / Time No Known Allergies Allergy Verified 02/08/21 13:33 Social History Smoking Status: Former smoker ROS ROS ED Constitutional Constitutional ED: Denies chills or fever(s) Eyes Eyes: Denies change in vision ENT ENT ED: Denies sore throat Cardiovascular Cardiovascular: Denies chest pain Respiratory/Chest Respiratory/Chest: Denies cough or dyspnea Gastrointestinal Gastrointestinal: Denies abdominal pain, diarrhea, nausea or vomiting Genitourinary Genitourinary ED: Denies dysuria Musculoskeletal Musculoskeletal: Reports back pain and other Details: Positive left foot/ankle pain as well as right toe pain ; Denies myalgias Integumentary Reports Abrasions; Denies rash Neurologic Neurologic: Denies headache(s) Hematologic/Lymphatic Hematologic/Lymphatic: Denies easy bleeding or easy bruising EXAM Physical Exam Const Vital Signs: 02/08/21 13:34 Temperature 97.3 F L Temperature Source Temporal Pulse Rate 77 Respiratory Rate 16 Blood Pressure 135/82 H Blood Pressure Mean 99 Pulse Ox 100 Oxygen Delivery Method Room Air Positive well nourished and well developed General Appearance ED: well developed HEENT Reports moist mucous membranes HEENT Narrative: No signs of depressed or basilar skull fracture Eyes PERRL and EOMs intact bilaterally Neck supple Neck Narrative: No bony deformity or step-off of the cervical spine no midline pain with palpation Chest Wall palpation of chest normal Resp normal respiratory effort and clear to auscultation bilaterally Cardio regular rate and regular rhythm Rate: other Other Details: Radial pulses are +2-4 bilaterally are equal and symmetric GI normal to inspection, nondistended, normoactive bowel sounds, non-tender, non- distended and no masses GI Narrative: No voluntary guarding or rigidity no pulsatile mass Auscultation: normoactive bowel sounds Palpation: soft Back/Spine Back/Spine Narrative: No bony deformity or step-off of the thoracic or lumbar spine but there is midline pain with thoracic palpation Extremity Extremity Narrative: Patient has soft tissue swelling and ecchymosis to the left ankle over top the lateral malleolus and along the dorsal aspect of the left foot. This is consistent with her report of fall about 10 days ago. No bony deformity or joint effusion. Ankle ligaments are stable and Achilles tendon is intact. Patient also has ecchymosis swelling of the right fourth toe no obvious bony deformity. Pelvis is stable there is no shortening or external rotation of either lower extremity. Neuro oriented x3 and CN's II-XII intact bilaterally Sensorium / Orientation: alert Motor Exam: strength 5/5 throughout Psych Psych Narrative: Patient has a depressed/flat affect Skin no rashes or lesions noted MDM MDM MDM Narrative Medical decision making narrative: Patient presented to the ER with a mechanical fall that was 10 to 14days old. She states that she had concern that she may need senior care placement or home health care and cannot get into her family doctor to have this evaluated and therefore presented to the ER. A basic work- up was obtained which revealed no clinically significant lab abnormality. Imaging studies did show a distal fibula fracture on the left consistent with her swelling and report of fall. I discussed the case with orthopedics who states that as she has been able to ambulate on this for the past 10 to 41 days and it is stable in nature she can just have an Aircast placed. She was also evaluated by social work who discussed with patient the options of home health care as well as her son and will provide resources for them. However at this time she does not qualify for senior care placement and therefore will be discharged Lab Data Attestation: I reviewed the patient's lab results. Labs: Laboratory Results - last 24 hr 02/08/21 02/08/21 02/08/21 15:35 16:08 16:08 WBC 4.5 RBC 3.39 L Hgb 10.5 L Hct 30.7 L MCV 90.6 MCH 31.0 MCHC 34.2 RDW Std Deviation 49.0 H RDW Coeff of Willie 15.0 H Plt Count 127 L MPV 11.1 Immature Gran % (Auto) 0.900 Neut % (Auto) 73.1 H Lymph % (Auto) 12.8 L [place] % (Auto) 12.3 H Eos % (Auto) 0.7 Baso % (Auto) 0.2 Absolute Neuts (auto) 3.3 Absolute Lymphs (auto) 0.57 L Nucleated RBC % 0 Differential Comment Platelet Estimate SLT DEC RBC Morphology NORM C+C Sodium 137 Potassium 3.7 Chloride 105 Carbon Dioxide 25.0 Anion Gap 7 BUN 15 Creatinine 0.56 Estim Creat Clear Calc 43.70 Est GFR (MDRD) Af Amer 138 Est GFR (MDRD) Non-Af 114 BUN/Creatinine Ratio 26.9 H Glucose 87 Calcium 9.0 Magnesium 1.9 Urine Color Yellow Urine Clarity Clear Urine pH 6.0 Ur Specific [place] 1.015 Urine Protein Negative Urine Glucose (UA) Normal Urine Ketones Negative Urine Occult Blood Negative Urine Nitrite Negative Urine Bilirubin Negative Urine Urobilinogen Normal Ur Leukocyte Esterase 100 H Urine RBC 0 SEEN Urine WBC 0-5 SEEN Ur Squamous Epith Cells 0-5 SEEN Urine Bacteria 0 SEEN Urine Mucus 0 SEEN Radiography Diagnostic Testing: Clinical Impression(s) from Imaging Studies Ankle X-Ray 02/08/21 16:14 IMPRESSION: Acute mildly displaced distal fibular fracture. Electronically Signed: Harlan Davis MD at 17:31 EST , Service support , Foot X-Ray 02/08/21 16:14 IMPRESSION: 1. There is a healed fracture deformity in the distal shaft of the third metatarsal bone. No visualized acute fractures Electronically Signed: Harlan Davis MD at 17:36 EST , Service support , Foot X-Ray 02/08/21 16:14 IMPRESSION: Normal x-ray examination of the foot. Electronically Signed: Harlan Davis MD at 17:16 EST , Service support , Thoracic Spine X-Ray 02/08/21 16:14 IMPRESSION: Chronic appearing compression deformities of T11-L1 Electronically Signed: Harlan Davis MD at 17:22 EST , Service support , Discharge Plan Triage Chief Complaint: Fall ED Provider: Diallo Dent Dx/Rx/DC Orders Clinical Impression: Closed fracture of distal end of left fibula, Multiple myeloma Instructions: Treating Ankle Fractures, ED Fall Prevention Prescriptions: No Action acyclovir 400 MG tablet 400 mg PO BID RF: 0 aspirin 81 MG tablet 81 mg PO DAILY@0800 RF: 0 ondansetron [Zofran ODT] 8 MG tablet,disintegrating 8 mg PO Q8H PRN PRN (Reason: Nausea/Vomiting) RF: 0 dexamethasone [Decadron] 4 MG tablet 4 mg PO PRN PRN (Reason: CHEMO) RF: 0 omeprazole 20 MG capsule 20 mg PO BID RF: 0 albuterol sulfate [ProAir HFA] 1 PUFF inhaler 1 - 2 puff inhalation Q4H PRN PRN (Reason: COUGH/SOB) RF: 0 oxybutynin chloride 5 MG tablet 5 mg PO BID RF: 0 dyyyodli-zil-qzvf-FA-lutein [Centrum Silver Women] 1 EACH tablet 1 ea PO DAILY RF: 0 naproxen-diphenhydramine [Aleve PM] 1 EACH tablet 1 ea PO QHS PRN (Reason: Insomnia) RF: 0 Cetirizine Hcl [Zyrtec] 10 MG tablet 10 mg PO DAILY RF: 0 Other Ambulatory Orders: Home Health (Routine) Location: None Selected Ordered By: Dr. Diallo Dent Primary Care Provider: Addi Elizabeth Referrals: Addi Elizabeth MD [Primary Care Provider] - Justin Wei DO [STAFF PHYSICIAN] - 1 Week Disposition Disposition: Home, Self Care
[2021-02-08 16:13] LABS: Color, Urine Yellow (Yellow); Glucose, Dipstick Normal (Normal); Ketone-Dipstick Negative (Negative); Leukocyte Esterase-Dipstick 100 /ul (Negative); Nitrite-Dipstick Negative (Negative); Occult Blood-Urine Negative /ul (Negative); Protein-Dipstick Negative (Negative); Specific Gravity, Urine 1.015 (1.002-1.030); Urine Bilirubin Dipstick Negative (Negative); Urine Clarity Clear (Clear); Urine Urobilinogen Normal (Normal)
--- NOTE | 2021-02-08 16:14 | RAD_ITS ---
STUDY: X-RAY - LEFT FOOT CLINICAL: Female, 70 years old. pain TECHNIQUE: 3 view(s) of the foot. COMPARISON: None. FINDINGS: The bony structures are demineralized. Normal talus, calcaneus, and tarsal bones. Normal visualized subtalar, talonavicular, calcaneocuboid, tarsal and tarsometatarsal articulations. Normal metatarsi. Normal metatarsophalangeal joint of the great toe. Normal tibial and fibular sesamoid bones. Normal interphalangeal joint of the great toe. Normal phalanges of the great toe. Normal second through fifth metatarsophalangeal joints. Normal interphalangeal joints and phalanges of the lesser toes. The soft tissue structures are unremarkable. There is no demonstrated fracture. RAD/Foot min 3 Views IMPRESSION: Normal x-ray examination of the foot. Electronically Signed: Harlan Davis MD at 17:16 EST , Service support ,
--- NOTE | 2021-02-08 16:14 | RAD_ITS ---
STUDY: X-RAY - THORACIC SPINE REASON FOR EXAM: Female, 70 years old. pain TECHNIQUE: 2 view(s) of the thoracic spine were obtained. COMPARISON: None. FINDINGS: Normal kyphosis of the thoracic spine. Mild levoscoliosis is present. Chronic appearing compression deformities of T11-L1 are present with mild loss of height. Normal thoracic vertebrae and endplates. There is multilevel disc space narrowing of the thoracic spine. The bony structures are diffusely demineralized. The soft tissue structures are unremarkable. Right chest port noted. RAD/Thoracic Spine 2 Views IMPRESSION: Chronic appearing compression deformities of T11-L1 Electronically Signed: Harlan Davis MD at 17:22 EST , Service support ,
--- NOTE | 2021-02-08 16:14 | RAD_ITS ---
STUDY: X-RAY - RIGHT FOOT CLINICAL: Female, 70 years old. [PAIN S/P FALL FEW WEEKS AGO TECHNIQUE: 3 view(s) of the foot. COMPARISON: None. FINDINGS: There is a healed fracture deformity in the distal shaft of the third metatarsal bone. No visualized acute fractures. Degenerative changes are present in the DIP joint of the fourth digit. Normal talus, calcaneus, and tarsal bones. Normal visualized subtalar, talonavicular, calcaneocuboid, tarsal and tarsometatarsal articulations. Normal metatarsi. Normal metatarsophalangeal joint of the great toe. Normal tibial and fibular sesamoid bones. Normal interphalangeal joint of the great toe. Normal phalanges of the great toe. Normal second through fifth metatarsophalangeal joints. Normal interphalangeal joints and phalanges of the lesser toes. The soft tissue structures are unremarkable. RAD/Foot min 3 Views IMPRESSION: 1. There is a healed fracture deformity in the distal shaft of the third metatarsal bone. No visualized acute fractures Electronically Signed: Harlan Davis MD at 17:36 EST , Service support ,
--- NOTE | 2021-02-08 16:14 | RAD_ITS ---
STUDY: X-RAY - LEFT ANKLE REASON FOR EXAM: Female, 70 years old. pain TECHNIQUE: 3 view(s) of the ankle. COMPARISON: None. FINDINGS: An acute mildly displaced oblique fracture of the distal one third fibular shaft is present at the level of syndesmosis. The surrounding soft tissues are mildly swollen.. Normal medial and lateral malleoli. Normal tibiotalar articulation and ankle mortise. Normal visualized talus and calcaneus. The visualized subtalar, talonavicular, calcaneocuboid and tarsal articulations are normal. RAD/Ankle min 3 Views IMPRESSION: Acute mildly displaced distal fibular fracture. Electronically Signed: Harlan Davis MD at 17:31 EST , Service support ,
[2021-02-08 16:16] LABS: Absolute Lymphocyte Count 0.57 X10^3/uL (0.83-4.51); Absolute Neutrophil Count 3.3 X10^3/uL (2.0-7.7); Basophil# 0.01 X10^3/uL; Basophil% 0.2 % (0-1); Eosinophil# 0.03 X10^3/uL; Eosinophils% 0.7 % (0-5); Hematocrit 30.7 % (37-47); Hemoglobin 10.5 g/dL (12.0-15.0); Lymphocyte # 0.57 X10^3/ul (0.83-4.51); Lymphocyte % 12.8 % (19-41); Mean Corp Hgb Conc 34.2 g/dL (32-36); Mean Corpuscular Volume 90.6 fL (81-99); Mean Platelet Vol. 11.1 fl (6.2-12.0); Monocyte# 0.55 X10^3/uL; Monocyte% 12.3 % (0-10); NRBC Flagged by Analyzer 0 % (0-5); Neutrophil # 3.27 X10^3/uL (2.7-7.7); Neutrophil % 73.1 % (47-70); POSITIVE DIFFERENTIAL YES; Platelet Count 127 K/mm3 (150-450); Red Blood Count 3.39 M/mm3 (4.2-5.4); White Blood Count 4.5 K/mm3 (4.4-11.0)
[2021-02-08 16:20] LABS: Differential Indicated SCAN CRITERIA MET
[2021-02-08 16:26] LABS: Squamous Epithelial Cells - UA 0-5 SEEN /hpf (5-10); White Blood Cells 0-5 SEEN /hpf (0-5)
[2021-02-08 16:27] LABS: Anion Gap 7 (5-15); BUN 15 mg/dL (7-18); BUN/Creat Ratio 26.9 RATIO (10-20); Chloride 105 mmol/L (98-107); Creatinine, Serum 0.56 mg/dL (0.55-1.02); EST Glomerular Filtration Rate 114 mL/min (>60); Est Glom Filt Rate - Afr Amer 138 mL/min (>60); Glucose 87 mg/dL (74-106); Magnesium 1.9 mg/dL (1.6-2.6); Potassium 3.7 mmol/L (3.5-5.1); Sodium Level 137 mmol/L (136-145)
[2021-02-08 17:08] LABS: Platelet Estimate SLT DEC (ADEQ); Red Cell Morphology NORM C+C NORMAL (NORM C&C)
--- NOTE | 2021-02-08 18:25 | CM.ED ---
Addendum entered by Suzanna Rodgers 02/08/21 18:42: SW got verbal order from MD for Home Health senior living PT/ OT.SW entered it. Original Note: FARIBA Note Referral Source: MD Referral Reason: Discharge Planning MD stated that patient reports interest in SNF however, patient was walking and was able to stabilize herself appropriately. FARIBA met with patient. She lives in a 2 story home but resides on 1 story. Laundry is on the first store. [facility] Patient initially asked about assisted living but then asked about SNF. Patient said that she fell a couple of weeks ago. She reports that her is in the [facility] as he had a hip replacement. Patient gave this continuity writer verbal permission to speak to her son, Aren. Aren, patient's son, was called. He said that they had called the PCP today about getting home health or in home services for the patient but they were booked full so they advised to come to the ED. Aren said that patient is weak and not moving as well. Aren said that patient reports she fell trying to move the furniture. Aren said that patient soiled herself and she reports that is not unusual for her, per her report, but she has difficulty changing her clothes once soiled. Aren said that he feels his mom is not there and stubborn and not making the best decision. Aren said that while his father is in the [facility] patient needs daily assistance. Aren said that patient has had cancer for 20 years and they are always aware of any symptoms she reports and she said that she has dizzy spells. Aren said that he doesn't feel that patient needs a SNF but needs help in the house. FARIBA provided Aren with the following resources 1) [facility] for in home assessment 2) Private pay resource (Aren said that they could pay) 3) Medic alert through the hospital 4) Assisted Living resources 5) Home Health resources 6) Palliative Care resources and [facility] Resources for the Elderly. FARIBA updated patient that this continuity writer talked to patient and the plan is for home health and possible in home services. Patient voiced no concerns or issues with the discharge plan. FARIBA called Aren, patient's son. FARIBA discussed [facility] as option for dizziness but he reports issues with her getting there. He reports home PT/OT would be beneficial for patient. Aren said that they need some in home support until patient's gets home and then he will see how things go and decide if they need a higher level of care. FARIBA asked Aren about who he would like to make referral to for home health and he said well, I haven't done my due diligence and I would like to research them. FARIBA explained that was fine but then when patient is discharged the order for home health RN/PT/OT will be printed out so he can provide that to the home health agency. FARIBA explained that this continuity writer can make referral however, it is Thursday night and this worker is not back till Thursday. FARIBA explained that patient's discharge paperwork will include diagnosis for patient's home health provider. FARIBA advised if patient or he have any issues to call this continuity writer on Thursday. Aren asked about getting any services in the home faster and FARIBA explained that as home health has to be reviewed and in compliance with insurance regulations the only option for quick in home services would possibly be private pay. FARIBA provided patient with this continuity writer's contact number if additional needs arise. FARIBA updated RN and MD. Suzanna LOERA
[2021-02-08 18:31] VITALS: BP 137/63; PULSE 72; RESP 15; O2SAT 98
== END 2021-02-08 18:33 | disposition home or self-care (01) ==
PROVIDERS: Emergency Provider Emergency Medicine; PCP Family Medicine
DX: S82.832A Other fracture of upper and lower end of left fibula, initial encounter for closed fracture (principal); W19.XXXA Unspecified fall, initial encounter; Y93.9 Activity, unspecified; Y92.9 Unspecified place or not applicable; Y99.9 Unspecified external cause status; C90.01 Multiple myeloma in remission; R42 Dizziness and giddiness; Z79.82 Long term (current) use of aspirin; Z79.52 Long term (current) use of systemic steroids; Z79.1 Long term (current) use of non-steroidal anti-inflammatories (NSAID); Z87.891 Personal history of nicotine dependence
CPT/HCPCS: 72070; 73610; 73630; 80048; 81001; 83735; 85025; 99283; A4216

== ENCOUNTER 2021-03-07 12:14 | Observation (INO) | payer MEDICARE, OTHER, SELFPAY ==
[2021-03-07] VITALS (12 sets, daily range): BP systolic 95–138; BP diastolic 48–83; PULSE 60–92; RESP 12–20; TEMP 36.3–36.8; O2SAT 86–99; BMI 21.4; BMI 20.3
--- NOTE | 2021-03-07 13:07 | EKG12_ITS ---
Test Reason : GENERAL ILLNESS Blood Pressure : / mmHG Vent. Rate : 071 BPM Atrial Rate : 071 BPM P-R Int : 146 ms QRS Dur : 068 ms QT Int : 412 ms P-R-T Axes : 067 -04 063 degrees QTc Int : 447 ms Normal sinus rhythm with sinus arrhythmia Normal ECG Confirmed by PITO BROWN, MARIUSZ ([id number]), assistant film editor SARAH LEDESMA ([id number]) on 03/12/2021 9:32:31 AM Referred By: JENAE Confirmed By:MARIUSZ SHELDON MD
--- NOTE | 2021-03-07 13:08 | EX.ED.DYSGE1 ---
HPI History of Present Illness Chief Complaint: General Illness Informant: patient and family Onset/Context/Timing Onset: Today Current Severity: Mild Maximum Severity: Mild Narrative Narrative: Patient presents secondary to generalized weakness and diarrhea. She is currently undergoing weekly chemotherapy for multiple myeloma, last treatment on the . She states last evening she started not feeling well this morning was too weak to get up and go for her treatment. She denies fever or chills. No cough or congestion. No chest pain. No abdominal pain, nausea, or vomiting. She has had diarrhea and family states that she tends to have loose stools at baseline. She denies urinary symptoms. [facility] Medical History (Updated 03/07/21 @ 16:[address] Meghan Kovacs MD) GERD (gastroesophageal reflux disease) HTN (hypertension) Hypothyroid Multiple myeloma Home Medications acyclovir 400 mg PO BID 08/16/17 [History Last Taken 03/07/21] dexamethasone [Decadron] 4 mg PO PRN PRN 08/16/17 [History Last Taken 03/01/21] unakcuqe-jwr-zcru-FA-lutein [Centrum Silver Women Tablet] 1 ea PO DAILY 08/16/17 [History Last Taken 03/07/21] omeprazole 20 mg PO BID 08/16/17 [History Last Taken 03/07/21] bupropion HCl 100 mg PO BID 03/07/21 [History Last Taken 03/07/21] citalopram 20 mg PO DAILY 03/07/21 [History Last Taken 03/07/21] diphenoxylate-atropine 1 tab PO 4X/DAY PRN 03/07/21 [History Last Taken Unknown] levothyroxine [Synthroid] 125 mcg PO DAILY 03/07/21 [History Last Taken Unknown] lisinopril 20 mg PO DAILY 03/07/21 [History Last Taken 03/07/21] meclizine 25 mg PO BID PRN 03/07/21 [History Last Taken Unknown] metoprolol succinate 25 mg PO DAILY 03/07/21 [History Last Taken 03/07/21] selinexor [Xpovio] 80 mg PO FR 03/07/21 [History Last Taken 03/01/21] trazodone 50 mg PO QHS 03/07/21 [History Last Taken 03/06/21] Allergy/AdvReac Type Severity Reaction Status Date / Time No Known Allergies Allergy Verified 03/07/21 12:17 Social History Smoking Status: Former smoker ROS ROS ED Constitutional Constitutional ED: Denies chills or fever(s) Eyes Eyes: Denies change in vision ENT ENT ED: Denies sore throat Cardiovascular Cardiovascular: Denies chest pain Respiratory/Chest Respiratory/Chest: Denies cough or dyspnea Gastrointestinal Gastrointestinal: Reports diarrhea; Denies abdominal pain, nausea or vomiting Genitourinary Genitourinary ED: Denies dysuria Musculoskeletal Musculoskeletal: Denies back pain Integumentary Denies rash Neurologic Neurologic: Reports weakness; Denies headache(s) Allergic/Immunologic Allergic/Immunologic ED: Denies urticaria EXAM Physical Exam Const Vital Signs: 03/07/21 12:18 03/07/21 12:21 03/07/21 12:22 Temperature 98.3 F Temperature Source Temporal Pulse Rate 78 Respiratory Rate 18 Respiratory Effort Normal Non-Labored Respiratory Pattern Normal Blood Pressure 95/63 Blood Pressure Mean 73 Pulse Ox 91 96 Oxygen Delivery Method Room Air Nasal Cannula Oxygen Flow Rate (L/min) 2 03/07/21 14:05 03/07/21 15:02 03/07/21 15:13 Temperature 97.8 F Temperature Source Temporal Pulse Rate 63 66 Respiratory Rate 17 16 Respiratory Effort Respiratory Pattern Blood Pressure 123/61 H 134/48 H Blood Pressure Mean 81 76 Pulse Ox 97 86 98 Oxygen Delivery Method Nasal Cannula Room Air Nasal Cannula Oxygen Flow Rate (L/min) 2 2 03/07/21 16:24 03/07/21 16:42 03/07/21 16:43 Temperature Temperature Source Pulse Rate 60 Respiratory Rate 14 Respiratory Effort Respiratory Pattern Blood Pressure 135/76 H Blood Pressure Mean 95 Pulse Ox 94 86 99 Oxygen Delivery Method Room Air Room Air Nasal Cannula Oxygen Flow Rate (L/min) 2 Positive well nourished and well developed General Appearance ED: well developed HEENT Reports normocephalic and head/scalp atraumatic Eyes PERRL and EOMs intact bilaterally Neck supple Chest Wall inspection of chest normal and palpation of chest normal Resp normal respiratory effort and clear to auscultation bilaterally Cardio regular rate and regular rhythm GI normal to inspection, nondistended, normoactive bowel sounds and non-tender Palpation: soft Extremity normal to inspection Neuro oriented x3 Neuro Narrative: No focal neurologic deficits. Sensorium / Orientation: alert Psych mental status grossly normal Skin no rashes or lesions noted MDM MDM MDM Narrative Medical decision making narrative: Lab work, EKG, urinalysis, stool studies obtained. Blood cultures ordered. Stool studies obtained as patient has been having diarrhea. Lab Data Attestation: I reviewed the patient's lab results. Labs: Laboratory Results - last 24 hr 03/07/21 03/07/21 03/07/21 13:30 13:30 13:30 WBC 6.1 RBC 3.15 L Hgb 9.6 L Hct 29.0 L MCV 92.1 MCH 30.5 MCHC 33.1 RDW Std Deviation 52.8 H RDW Coeff of Willie 15.9 H Plt Count 175 MPV 10.9 Immature Gran % (Auto) 1.500 H Neut % (Auto) 74.6 H Lymph % (Auto) 11.7 L Walker % (Auto) 10.5 H Eos % (Auto) 1.5 Baso % (Auto) 0.2 Absolute Neuts (auto) 4.5 Absolute Lymphs (auto) 0.71 L Nucleated RBC % 0 Sodium 132 L Potassium 3.9 Chloride 101 Carbon Dioxide 28.0 Anion Gap 3 L BUN 16 Creatinine 0.71 Estim Creat Clear Calc 45.76 Est GFR (MDRD) Af Amer 105 Est GFR (MDRD) Non-Af 87 BUN/Creatinine Ratio 22.7 H Glucose 75 Lactic Acid 0.6 Calcium 7.9 L Total Bilirubin 0.50 Direct Bilirubin 0.09 AST 14 L ALT 15 Alkaline Phosphatase 87 Total Protein 6.5 Albumin 2.6 L Globulin 3.9 Urine Color Urine Clarity Urine pH Ur Specific [place] Urine Protein Urine Glucose (UA) Urine Ketones Urine Occult Blood Urine Nitrite Urine Bilirubin Urine Urobilinogen Ur Leukocyte Esterase Urine RBC Urine WBC Ur Squamous Epith Cells Urine Bacteria Urine Mucus 03/07/21 13:50 WBC RBC Hgb Hct MCV MCH MCHC RDW Std Deviation RDW Coeff of Willie Plt Count MPV Immature Gran % (Auto) Neut % (Auto) Lymph % (Auto) Walker % (Auto) Eos % (Auto) Baso % (Auto) Absolute Neuts (auto) Absolute Lymphs (auto) Nucleated RBC % Sodium Potassium Chloride Carbon Dioxide Anion Gap BUN Creatinine Estim Creat Clear Calc Est GFR (MDRD) Af Amer Est GFR (MDRD) Non-Af BUN/Creatinine Ratio Glucose Lactic Acid Calcium Total Bilirubin Direct Bilirubin AST ALT Alkaline Phosphatase Total Protein Albumin Globulin Urine Color Yellow Urine Clarity Sl. Cloudy Urine pH 7.0 Ur Specific [place] 1.005 Urine Protein Negative Urine Glucose (UA) Normal Urine Ketones Negative Urine Occult Blood Negative Urine Nitrite Negative Urine Bilirubin Negative Urine Urobilinogen Normal Ur Leukocyte Esterase Negative Urine RBC 0 SEEN Urine WBC 0 SEEN Ur Squamous Epith Cells 0-5 SEEN Urine Bacteria 0 SEEN Urine Mucus 0 SEEN Radiography Diagnostic Testing: Clinical Impression(s) from Imaging Studies Chest CTA 03/07/21 15:15 IMPRESSION: Normal CTA chest examination, without a demonstrated pulmonary embolism or arterial dissection. Electronically Signed: Job Haque MD at 16:05 EST Tel , Service support , EKG Initial EKG: Attestation: I personally reviewed and interpreted this EKG as follows: Interpretation: Sinus Rhythm (Sinus at 71 with no acute ischemia.) Treatment and Re-Evaluation Comments:: Lab work unremarkable. Urinalysis shows no sign of infection. EKG unremarkable. Nursing staff did take the patient off of oxygen and she did drop to 86% on room air. CTA of the chest is obtained that reveals no PE or infiltrate. Patient is taken back off of supplemental oxygen as she states that she is not on home oxygen and has no underlying lung disease. O2 sats dropped into the low to mid 80s. Patient is placed back on nasal care at this time and sats are in the mid 90s. I am unable to arrange home oxygen without underlying lung disease or Covid. Her Covid test for me was negative. I will speak with hospitalist regarding admission. Discharge Plan Triage Chief Complaint: General Illness ED Provider: Meghan Kovacs Dx/Rx/DC Orders Clinical Impression: Hypoxia, Weakness Prescriptions: No Action acyclovir 400 MG tablet 400 mg PO BID RF: 0 dexamethasone [Decadron] 4 MG tablet 4 mg PO PRN PRN (Reason: CHEMO) RF: 0 omeprazole 20 MG capsule 20 mg PO BID RF: 0 Centrum Silver Women 1 EACH tablet 1 ea PO DAILY RF: 0 trazodone 50 mg tablet 50 mg PO QHS RF: 0 lisinopril 20 mg tablet 20 mg PO DAILY RF: 0 diphenoxylate-atropine 2.5-0.025 mg tablet 1 tab PO 4X/DAY PRN (Reason: STOOL) RF: 0 bupropion HCl 100 mg tablet 100 mg PO BID RF: 0 citalopram 20 mg tablet 20 mg PO DAILY RF: 0 meclizine 25 mg tablet 25 mg PO BID PRN (Reason: Dizziness) RF: 0 levothyroxine [Synthroid] 125 mcg tablet 125 mcg PO DAILY RF: 0 metoprolol succinate 25 mg tablet extended release 24 hr 25 mg PO DAILY RF: 0 Xpovio 80 mg/week (40 mg x 2) tablet 80 mg PO FR RF: 0 Primary Care Provider: Addi Elizabeth Referrals: Addi Elizabeth MD [Primary Care Provider] - Disposition Disposition: Acute Care Hospital [facility]
[2021-03-07] MEDS: 0.9% Normal Saline 1,000 ML 150 ML IV ×2 (13:34→19:22)
[2021-03-07 13:37] LABS: Absolute Lymphocyte Count 0.71 X10^3/uL (0.83-4.51); Absolute Neutrophil Count 4.5 X10^3/uL (2.0-7.7); Basophil# 0.01 X10^3/uL; Basophil% 0.2 % (0-1); Eosinophil# 0.09 X10^3/uL; Eosinophils% 1.5 % (0-5); Hemoglobin 9.6 g/dL (12.0-15.0); Lymphocyte # 0.71 X10^3/ul (0.83-4.51); Lymphocyte % 11.7 % (19-41); Mean Corp Hgb Conc 33.1 g/dL (32-36); Mean Corpuscular Hgb 30.5 pg (27.0-32.0); Mean Corpuscular Volume 92.1 fL (81-99); Mean Platelet Vol. 10.9 fl (6.2-12.0); Monocyte# 0.64 X10^3/uL; Monocyte% 10.5 % (0-10); NRBC Flagged by Analyzer 0 % (0-5); Neutrophil # 4.54 X10^3/uL (2.7-7.7); Neutrophil % 74.6 % (47-70); Platelet Count 175 K/mm3 (150-450); RBC Distribution Width CV 15.9 % (11.6-14.6); RBC Distribution Width SD 52.8 fl (35.1-43.9); Red Blood Count 3.15 M/mm3 (4.2-5.4); White Blood Count 6.1 K/mm3 (4.4-11.0)
[2021-03-07 13:54] LABS: Bacteria 0 SEEN /hpf (None Seen); Mucous, Urine 0 SEEN /hpf (<or=2+); Red Blood Cells-Urine 0 SEEN /hpf (0-5); White Blood Cells 0 SEEN /hpf (0-5)
[2021-03-07 13:55] LABS: AST(SGOT) 14 U/L (15-37); Alanine Aminotransfer ALT/SGPT 15 U/L (13-56); Albumin, Serum 2.6 g/dL (3.2-5.0); Alkaline Phosphatase 87 U/L (45-117); Anion Gap 3 (5-15); BUN 16 mg/dL (7-18); BUN/Creat Ratio 22.7 RATIO (10-20); Bilirubin, Direct 0.09 mg/dL (0.00-0.30); Calcium,Total 7.9 mg/dL (8.5-10.1); Chloride 101 mmol/L (98-107); Creatinine, Serum 0.71 mg/dL (0.55-1.02); EST Glomerular Filtration Rate 87 mL/min (>60); Est Glom Filt Rate - Afr Amer 105 mL/min (>60); Estimated Creatinine Clearance 45.76 ml/min; Globulin 3.9 g/dL (2.2-4.2); Glucose 75 mg/dL (74-106); Potassium 3.9 mmol/L (3.5-5.1); Protein, Total 6.5 g/dL (6.4-8.2); Sodium Level 132 mmol/L (136-145)
[2021-03-07 13:56] LABS: Color, Urine Yellow (Yellow); Glucose, Dipstick Normal (Normal); Ketone-Dipstick Negative (Negative); Leukocyte Esterase-Dipstick Negative /ul (Negative); Nitrite-Dipstick Negative (Negative); Occult Blood-Urine Negative /ul (Negative); Protein-Dipstick Negative (Negative); Specific Gravity, Urine 1.005 (1.002-1.030); Urine Bilirubin Dipstick Negative (Negative); Urine Clarity Sl. Cloudy (Clear); Urine Urobilinogen Normal (Normal)
[2021-03-07 14:03] LABS: Squamous Epithelial Cells - UA 0-5 SEEN /hpf (5-10)
[2021-03-07 14:05] LABS: Lactic Acid 0.6 mmol/L (0.4-1.9)
--- NOTE | 2021-03-07 15:15 | CT_ITS ---
STUDY: CTA CHEST REASON FOR EXAM: Female, 70 years old. pulmonary embolism RADIATION DOSAGE (If Supplied By Facility): CTDIvol = ( 8.53 ) mGy, DLP = ( 309.30 ) mGycm TECHNIQUE: The examination was performed with the intravenous administration of IV 100mL Isovue-370. Post-processing of the angiographic images was performed, with multiplanar reformation and 3D reconstruction. Individualized dose optimization techniques were used for this CT. COMPARISON: None. FINDINGS: Right internal jugular chest port. Normal enhancement of the main pulmonary artery and right and left pulmonary arteries. Normal enhancement of the bilateral peripheral pulmonary arteries. There is no demonstrated pulmonary embolism. Normal thoracic aorta and visualized great vessels. There is no demonstrated aortic dissection. Normal heart and pericardium. Normal mediastinum. Normal hilar regions. Normal visualized trachea and bronchi. The lungs are well expanded. Mild emphysema. Some dependent bibasilar subsegmental atelectasis. No noncalcified nodule or mass. Normal pleura. Normal chest wall structures. Normal osseous structures. Normal visualized upper abdomen. CT/CTA Chest W/WO Contrast IMPRESSION: Normal CTA chest examination, without a demonstrated pulmonary embolism or arterial dissection. Electronically Signed: Job Haque MD at 16:05 EST Tel , Service support ,
--- NOTE | 2021-03-07 16:52 | PCM.HP.STD ---
HPI - General General Date of Admission: 03/07/21 HPI Narrative RICHARD BERRY, is a 70 F who presents with 1 week of weakness and the shakes and some mild diarrhea. The patient does have a history of multiple myeloma and has chemotherapy on Fridays. She received new therapy last week (Selinexor) and has not felt the same since and also noted that she did not take her thyroid medication for the past week because she got mixed up with her medication pillboxes. The patient does not have any fevers or chills cough or shortness of breath. She does not have any abdominal pain or nausea or vomiting. Patient did have flu infection about 3 years ago and was sent home with supplemental oxygen however she says she hardly needed to use it because it was too much. Patient presented to ED 87% on room air and she was put on 2 L and improved greatly however after being taken off she went to 86%. She did not have dyspnea throughout this. At least 6 attempts were made by nursing to get a accurate pulse ox, however all accurate readings returned very low despite being asymptomatic. CTA was done, and negative for pneumonia or embolism. [facility] Medical History GERD (gastroesophageal reflux disease) HTN (hypertension) Hypothyroid Multiple myeloma Home Medications acyclovir 400 mg PO BID 08/16/17 [History Last Taken 03/07/21] dexamethasone [Decadron] 4 mg PO PRN PRN 08/16/17 [History Last Taken 03/01/21] wwonupaq-wqf-neye-FA-lutein [Centrum Silver Women Tablet] 1 ea PO DAILY 08/16/17 [History Last Taken 03/07/21] omeprazole 20 mg PO BID 08/16/17 [History Last Taken 03/07/21] bupropion HCl 100 mg PO BID 03/07/21 [History Last Taken 03/07/21] citalopram 20 mg PO DAILY 03/07/21 [History Last Taken 03/07/21] diphenoxylate-atropine 1 tab PO 4X/DAY PRN 03/07/21 [History Last Taken Unknown] levothyroxine [Synthroid] 125 mcg PO DAILY 03/07/21 [History Last Taken Unknown] lisinopril 20 mg PO DAILY 03/07/21 [History Last Taken 03/07/21] meclizine 25 mg PO BID PRN 03/07/21 [History Last Taken Unknown] metoprolol succinate 25 mg PO DAILY 03/07/21 [History Last Taken 03/07/21] selinexor [Xpovio] 80 mg PO FR 03/07/21 [History Last Taken 03/01/21] trazodone 50 mg PO QHS 03/07/21 [History Last Taken 03/06/21] Allergy/AdvReac Type Severity Reaction Status Date / Time No Known Allergies Allergy Verified 03/07/21 12:17 Social History Smoking Status: Former smoker ROS ROS Narrative Positive for weakness and shakes and mild diarrhea which is chronic, there are no fevers shortness of breath cough chest pain or racing, abdominal pain dysuria hematuria No skin rashes or falls seizures or numbness tingling. Rest per HPI Vital Signs Vital Signs Vital Signs: 03/07/21 12:18 03/07/21 12:21 03/07/21 12:22 Temperature 98.3 F Temperature Source Temporal Pulse Rate 78 Respiratory Rate 18 Respiratory Effort Normal Non-Labored Respiratory Pattern Normal Blood Pressure 95/63 Blood Pressure Mean 73 Pulse Ox 91 96 Oxygen Delivery Method Room Air Nasal Cannula Oxygen Flow Rate (L/min) 2 03/07/21 14:05 03/07/21 15:02 03/07/21 15:13 Temperature 97.8 F Temperature Source Temporal Pulse Rate 63 66 Respiratory Rate 17 16 Respiratory Effort Respiratory Pattern Blood Pressure 123/61 H 134/48 H Blood Pressure Mean 81 76 Pulse Ox 97 86 98 Oxygen Delivery Method Nasal Cannula Room Air Nasal Cannula Oxygen Flow Rate (L/min) 2 2 03/07/21 16:24 03/07/21 16:42 03/07/21 16:43 Temperature Temperature Source Pulse Rate 60 Respiratory Rate 14 Respiratory Effort Respiratory Pattern Blood Pressure 135/76 H Blood Pressure Mean 95 Pulse Ox 94 86 99 Oxygen Delivery Method Room Air Room Air Nasal Cannula Oxygen Flow Rate (L/min) 2 Weight Weight: 129 lb 3.054 oz Body Mass Index (BMI) 21.4 Physical Exam Narrative Patient is very pleasant Const alert and no apparent distress General Appearance: cooperative HEENT normocephalic and head/scalp atraumatic Neck no lymphadenopathy and supple Resp normal respiratory effort and no use of accessory muscles Cardio regular rate, regular rhythm and S1 normal heart sound GI normal to inspection, nondistended, normoactive bowel sounds and soft to palpation Extremity normal to inspection Skin no rashes or lesions noted and no wounds Neuro Sensorium / Orientation: awake and alert Psych affect normal Results Lab / Micro Data Result Diagrams: 03/07/21 13:30 03/07/21 13:30 Labs: Laboratory Results - last 24 hr 03/07/21 13:30: WBC 6.1, RBC 3.15 L, Hgb 9.6 L, Hct 29.0 L, MCV 92.1, MCH 30.5, MCHC 33.1, RDW Std Deviation 52.8 H, RDW Coeff of Willie 15.9 H, Plt Count 175, MPV 10.9, Immature Gran % (Auto) 1.500 H, Neut % (Auto) 74.6 H, Lymph % (Auto) 11.7 L, [place] % (Auto) 10.5 H, Eos % (Auto) 1.5, Baso % (Auto) 0.2, Absolute Neuts (auto) 4.5, Absolute Lymphs (auto) 0.71 L, Nucleated RBC % 0 03/07/21 13:30: Sodium 132 L, Potassium 3.9, Chloride 101, Carbon Dioxide 28.0, Anion Gap 3 L, BUN 16, Creatinine 0.71, Estim Creat Clear Calc 45.76, Est GFR (MDRD) Af Amer 105, Est GFR (MDRD) Non-Af 87, BUN/Creatinine Ratio 22.7 H, Glucose 75, Calcium 7.9 L, Total Bilirubin 0.50, Direct Bilirubin 0.09, AST 14 L, ALT 15, Alkaline Phosphatase 87, Total Protein 6.5, Albumin 2.6 L, Globulin 3.9 03/07/21 13:30: Lactic Acid 0.6 03/07/21 13:50: Urine Color Yellow, Urine Clarity Sl. Cloudy, Urine pH 7.0, Ur Specific [place] 1.005, Urine Protein Negative, Urine Glucose (UA) Normal, Urine Ketones Negative, Urine Occult Blood Negative, Urine Nitrite Negative, Urine Bilirubin Negative, Urine Urobilinogen Normal, Ur Leukocyte Esterase Negative, Urine RBC 0 SEEN, Urine WBC 0 SEEN, Ur Squamous Epith Cells 0-5 SEEN, Urine Bacteria 0 SEEN, Urine Mucus 0 SEEN Micro: Microbiology 03/07/21 13:00 Stool Stool Lactoferrin - Final 03/07/21 13:30 Nasal Secretion SARS-CoV-2 Antigen (Rapid) - Final Radiology Impression Chest CTA 03/07/21 15:15 IMPRESSION: Normal CTA chest examination, without a demonstrated pulmonary embolism or arterial dissection. Electronically Signed: Job Haque MD at 16:05 EST Tel , Service support , Assessment & Plan Assessment/Plan (1) Acute respiratory failure with hypoxia: (2) Multiple myeloma: (3) Weakness: (4) Viral gastroenteritis: PLAN: 1. Acute Hypoxic Respiratory failure: No distress. Continue O2 therapy. This may be due in part to emphysema since she had previous tobacco use. Patient has been admitted to observation - regular nursing floor and will give her DuoNebs and she should be checked for home oxygen requirements. No sign of pneumonia. 2. Mild diarrhea which is chronic in nature. Monitor. No intravascular depletion at this point 3. Hypertension-blood pressure controlled, home medications continued with dose adjustment as needed 4. Hypothyroidism-patient is continued on levothyroxine home dose continued 5. Weakness, generalized. This is most likely due to chemotherapy versus missing her Synthroid dosing. Will encourage intensive nutritional support. 6. Mild hyponatremia secondary to hypovolemic hyponatremia as a result of poor intake. I would avoid fluids at this time unless she cannot take enough p.o. intake. UA is clear of infection 7. DVT prophylaxis SC Lovenox The patient is DNR/DNI We will continue diet Girish Helton MD Charges/Coding Visit Charges OBSV E&M: [id number] Initial observation care L2
--- NOTE | 2021-03-07 18:19 | PCS.PANDOC ---
PANDEMIC DOCUMENTATION INITIATED: Date: 03/07/2021 Time: [id number]
[2021-03-07] MEDS: 0.9% Saline Lock 10 ML Syringe IV (19:22)
[2021-03-07] MEDS: traZODone 50 MG Tablet PO (22:45)
[2021-03-07] MEDS: Pantoprazole Sodium 20 MG Tablet PO (22:45)
[2021-03-07] MEDS: buPROPion 100 MG Tablet PO (22:48)
--- NOTE | 2021-03-07 23:29 | EKG12_ITS ---
Test Reason : IRREG RHYTHM Blood Pressure : / mmHG Vent. Rate : 081 BPM Atrial Rate : 081 BPM P-R Int : 144 ms QRS Dur : 072 ms QT Int : 406 ms P-R-T Axes : 064 -17 063 degrees QTc Int : 471 ms Sinus rhythm with frequent Premature ventricular complexes Otherwise normal ECG When compared with ECG of 07-MAR-2021 13:16, MANUAL COMPARISON REQUIRED, DATA IS UNCONFIRMED Confirmed by PITO BROWN, MARIUSZ ([id number]), photography editor SARAH LEDESMA ([id number]) on 03/12/2021 10:11:40 AM Referred By: DR ASHLEY Confirmed By:MARIUSZ SHELDON MD
--- NOTE | 2021-03-07 23:41 | NURSING ---
2230. irreg HR noted on assessment, this RN asked electric power superintendent Dante for second opinion. pt is asymptomatic. EKG obtained, Darrianyplydia notified for new orders
[2021-03-08] VITALS (11 sets, daily range): BP systolic 113–143; BP diastolic 67–80; PULSE 58–81; RESP 16–18; TEMP 36.6–36.9; O2SAT 94–98
[2021-03-08] MEDS: Potassium Chloride Oral Tablet 10 MEQ PO (00:55)
[2021-03-08] MEDS: 0.9% Normal Saline 1,000 ML 150 ML IV ×2 (00:55→05:12)
[2021-03-08 01:23] LABS: Magnesium 1.7 mg/dL (1.6-2.6)
[2021-03-08] MEDS: Levothyroxine 125 MCG Tablet PO (05:11)
[2021-03-08] MEDS: Ipratropium/Albuterol Sulfate 3 ML AMPUL.NEB INHALATION ×3 (07:28→19:44)
[2021-03-08 08:25] LABS: Absolute Lymphocyte Count 0.82 X10^3/uL (0.83-4.51); Absolute Neutrophil Count 4.2 X10^3/uL (2.0-7.7); Basophil# 0.01 X10^3/uL; Basophil% 0.2 % (0-1); Eosinophil# 0.06 X10^3/uL; Eosinophils% 1.1 % (0-5); Hematocrit 28.5 % (37-47); Hemoglobin 9.4 g/dL (12.0-15.0); Lymphocyte # 0.82 X10^3/ul (0.83-4.51); Lymphocyte % 14.5 % (19-41); Mean Corpuscular Volume 94.1 fL (81-99); Mean Platelet Vol. 10.2 fl (6.2-12.0); Monocyte# 0.56 X10^3/uL; Monocyte% 9.9 % (0-10); NRBC Flagged by Analyzer 0 % (0-5); Neutrophil # 4.15 X10^3/uL (2.7-7.7); Neutrophil % 73.2 % (47-70); Platelet Count 199 K/mm3 (150-450); RBC Distribution Width CV 16.2 % (11.6-14.6); RBC Distribution Width SD 55.2 fl (35.1-43.9); Red Blood Count 3.03 M/mm3 (4.2-5.4); White Blood Count 5.7 K/mm3 (4.4-11.0)
[2021-03-08 08:49] LABS: ALB/GLOB Ratio 0.7 RATIO (0.9-2.4); AST(SGOT) 13 U/L (15-37); Alanine Aminotransfer ALT/SGPT 16 U/L (13-56); Albumin, Serum 2.4 g/dL (3.2-5.0); Alkaline Phosphatase 78 U/L (45-117); Anion Gap 6 (5-15); BUN 8 mg/dL (7-18); BUN/Creat Ratio 13.3 RATIO (10-20); Calcium,Total 7.4 mg/dL (8.5-10.1); Chloride 107 mmol/L (98-107); EST Glomerular Filtration Rate 104 mL/min (>60); Est Glom Filt Rate - Afr Amer 126 mL/min (>60); Estimated Creatinine Clearance 44.47 ml/min; Globulin 3.5 g/dL (2.2-4.2); Glucose 81 mg/dL (74-106); Potassium 3.7 mmol/L (3.5-5.1); Protein, Total 5.9 g/dL (6.4-8.2); Sodium Level 139 mmol/L (136-145)
[2021-03-08] MEDS: Pantoprazole Sodium 20 MG Tablet PO ×2 (09:08→21:30)
[2021-03-08] MEDS: Metoprolol(XL)Succ 25 MG Tablet PO (09:08)
[2021-03-08] MEDS: Citalopram 20 MG Tablet PO (09:08)
[2021-03-08] MEDS: buPROPion 100 MG Tablet PO ×2 (09:09→21:30)
[2021-03-08] MEDS: Lisinopril 20 MG Tablet PO (09:10)
--- NOTE | 2021-03-08 09:54 | PN.HOSP_ITS ---
Subjective Subjective Physical exam: General: Alert, Oriented x3, Cooperative, No apparent distress, Well developed HEENT: Atraumatic Oral: Moist Mucosa Neck: Supple Lungs: Clear to auscultation Cardiovascular: HS I+II, regular, no murmurs Abdomen: Bowel Sounds Present, Soft, Non Tender Extremities: No edema Skin: No rashes, No breakdown Neurological: Grossly intact Psych/Mental Status: Appropriate Follow-up on respiratory failure: Patient was seen and examined. She remains on 4 L of oxygen. She admits to history of smoking for a long time. Denied any cough or progressive shortness of breath. She denies seeing any licensed chemical spray technician for COPD. Objective Data Objective Data Vital Signs: Vital Signs Temp Pulse Resp BP Pulse Ox 98.0 F 81 18 114/69 94 03/08/21 08:44 03/08/21 09:08 03/08/21 09:02 03/08/21 08:44 03/08/21 08:44 Oxygen Flow Rate (L/min) 4 Oxygen Delivery Method Nasal Cannula Weight: 55.4 kg Body Mass Index (BMI) 20.3 Intake & Output: Intake and Output for Last 24 Hours 03/06/21 03/07/21 03/08/21 23:59 23:59 23:59 Intake Total 870 / 870 1475.0 / 1475.0 Balance 870 / 870 1475.0 / 1475.0 Lab / Micro Data Result Diagrams: 03/08/21 08:05 03/08/21 08:05 Labs: Laboratory Results - last 24 hr 03/07/21 13:30: WBC 6.1, RBC 3.15 L, Hgb 9.6 L, Hct 29.0 L, MCV 92.1, MCH 30.5, MCHC 33.1, RDW Std Deviation 52.8 H, RDW Coeff of Willie 15.9 H, Plt Count 175, MPV 10.9, Immature Gran % (Auto) 1.500 H, Neut % (Auto) 74.6 H, Lymph % (Auto) 11.7 L, [place] % (Auto) 10.5 H, Eos % (Auto) 1.5, Baso % (Auto) 0.2, Absolute Neuts (auto) 4.5, Absolute Lymphs (auto) 0.71 L, Nucleated RBC % 0 03/07/21 13:30: Sodium 132 L, Potassium 3.9, Chloride 101, Carbon Dioxide 28.0, Anion Gap 3 L, BUN 16, Creatinine 0.71, Estim Creat Clear Calc 45.76, Est GFR (MDRD) Af Amer 105, Est GFR (MDRD) Non-Af 87, BUN/Creatinine Ratio 22.7 H, Glucose 75, Calcium 7.9 L, Total Bilirubin 0.50, Direct Bilirubin 0.09, AST 14 L , ALT 15, Alkaline Phosphatase 87, Total Protein 6.5, Albumin 2.6 L, Globulin 3.9 03/07/21 13:30: Lactic Acid 0.6 03/07/21 13:50: Urine Color Yellow, Urine Clarity Sl. Cloudy, Urine pH 7.0, Ur Specific [place] 1.005, Urine Protein Negative, Urine Glucose (UA) Normal, Urine Ketones Negative, Urine Occult Blood Negative, Urine Nitrite Negative, Urine Bilirubin Negative, Urine Urobilinogen Normal, Ur Leukocyte Esterase Negative, Urine RBC 0 SEEN, Urine WBC 0 SEEN, Ur Squamous Epith Cells 0-5 SEEN, Urine Bacteria 0 SEEN, Urine Mucus 0 SEEN 03/08/21 01:00: Magnesium 1.7 03/08/21 08:05: WBC 5.7, RBC 3.03 L, Hgb 9.4 L, Hct 28.5 L, MCV 94.1, MCH 31.0, MCHC 33.0, RDW Std Deviation 55.2 H, RDW Coeff of Willie 16.2 H, Plt Count 199, MPV 10.2, Immature Gran % (Auto) 1.100 H, Neut % (Auto) 73.2 H, Lymph % (Auto) 14.5 L, [place] % (Auto) 9.9, Eos % (Auto) 1.1, Baso % (Auto) 0.2, Absolute Neuts (auto) 4.2, Absolute Lymphs (auto) 0.82 L, Nucleated RBC % 0 03/08/21 08:05: Sodium 139, Potassium 3.7, Chloride 107, Carbon Dioxide 26.0, Anion Gap 6, BUN 8, Creatinine 0.60, Estim Creat Clear Calc 44.47, Est GFR (MDRD) Af Amer 126, Est GFR (MDRD) Non-Af 104, BUN/Creatinine Ratio 13.3, Glucose 81, Calcium 7.4 L, Total Bilirubin 0.40, AST 13 L, ALT 16, Alkaline Phosphatase 78, Total Protein 5.9 L, Albumin 2.4 L, Globulin 3.5, Albumin/Globulin Ratio 0.7 L Micro: Microbiology 03/07/21 13:00 Stool Stool Lactoferrin - Final 03/07/21 13:00 Stool Enteric Bacteriology - Final 03/07/21 13:00 Stool C. difficile DNA Amplification - Final 03/07/21 23:10 Mucosa - Nose Influenza Types A,B Direct FA (EMEKA) - Final 03/07/21 13:30 Nasal Secretion SARS-CoV-2 Antigen (Rapid) - Final Radiography Diagnostic Testing: Radiology Impression Chest CTA 03/07/21 15:15 IMPRESSION: Normal CTA chest examination, without a demonstrated pulmonary embolism or arterial dissection. Electronically Signed: Job Haque MD at 16:05 EST Tel , Service support , Physical Exam Narrative Physical exam: General: Alert, Oriented x3, Cooperative, No apparent distress, Well developed, on 4 L of oxygen HEENT: Atraumatic Oral: Moist Mucosa Neck: Supple Lungs: Diminished to auscultation Cardiovascular: HS I+II, regular, no murmurs Abdomen: Bowel Sounds Present, Soft, Non Tender Extremities: No edema Assessment & Plan Assessment/Plan (1) Acute respiratory failure with hypoxia: (2) Multiple myeloma: QUALIFIERS: Multiple myeloma remission status: in remission Qualified Code(s): C90.01 - Multiple myeloma in remission (3) Weakness: (4) Viral gastroenteritis: PLAN: 1. Acute Hypoxic Respiratory failure likely secondary to progressive COPD Patient with no formal diagnosis of COPD History of chronic smoking Consult pulmonology to establish care; will need PFTs in the outpatient 2. Diarrhea, appears to have resolved, stool for C. difficile and enteric panel was negative 3. Hypertension, controlled, continue lisinopril and metoprolol 4. Hypothyroidism, continue on synthroid 5. Hyponatremia, acute, likely hypovolemic, resolved 6. Hypomagnesemia, replaced, recheck in am Charges/Coding Visit Charges Inpatient E&M: 35129 Subs Hosp L2
[2021-03-08 10:56] LABS: BNP,B-Type NATRIURETIC PEPTIDE 507.8 pg/mL (0-100)
--- NOTE | 2021-03-08 11:25 | ECHOD_ITS ---
Reason For Study: SOB Procedure This was a 2D Doppler, Color Flow transthoracic echocardiogram. Exam performed portable in patient room. Left Ventricle Moderate concentric left ventricular hypertrophy. The estimated ejection fraction is 55-60 %. Right Ventricle Normal right ventricle. Normal systolic function. Atria Normal left atrium. Normal right atrium. Mitral Valve The mitral valve is structurally normal. No prolapse or stenosis seen. No mitral valve insufficiency. Tricuspid Valve Normal tricuspid valve. Mild tricuspid valve insufficiency. Aortic Valve Normal aortic valve. Pulmonic Valve The pulmonic valve is not well visualized. Great Vessels Normal aortic root. Pericardium/Pleural No pericardial effusion. MMode/2D Measurements & Calculations LVIDd: 2.9 cm IVSd: 1.6 cm Ao root diam: 2.9 cm LVIDs: 1.9 cm LVPWd: 1.2 cm RVDd: 2.5 cm FS: 32.7 % LAV(MOD-bp): 31.4 ml LVAd ap4: 17.3 cm2 LVAd ap2: 18.1 cm2 LAV(MOD-bp) Indexed: 19.6 ml/m2 LVLd ap4: 6.7 cm LVLd ap2: 7.2 cm LAV(MOD-sp2): 36.7 ml EDV(MOD-sp4): 37.5 ml EDV(MOD-sp2): 37.8 ml LAV(MOD-sp4): 25.9 ml EDV(sp4-el): 37.8 ml EDV(sp2-el): 38.5 ml LVAs ap4: 9.9 cm2 LVAs ap2: 8.7 cm2 LVLs ap4: 6.1 cm LVLs ap2: 6.6 cm ESV(MOD-sp4): 14.3 ml ESV(MOD-sp2): 9.7 ml ESV(sp4-el): 13.6 ml ESV(sp2-el): 9.8 ml EF(MOD-sp4): 62.0 % EF(MOD-sp2): 74.2 % EF(sp4-el): 64.0 % SV(MOD-sp4): 23.3 ml SV(MOD-sp2): 28.0 ml SV(sp4-el): 24.2 ml LA dimension(2D): 3.5 cm LA A4 area: 11.7 cm2 RA A4 area: 9.5 cm2 Doppler Measurements & Calculations MV E max yong: 63.9 cm/sec Lat Peak E' Yong: 8.4 cm/sec Med Peak E' Yong: 8.4 cm/sec MV A max yong: 68.8 cm/sec E/E' lat: 7.6 E/E' med: 7.6 MV E/A: 0.93 Ao V2 max: 130.9 cm/sec LV V1 max: 97.3 cm/sec PA V2 max: 73.1 cm/sec Ao max P.9 mmHg LV V1 max P.8 mmHg TR max yong: 311.7 cm/sec TR max P.0 mmHg ECHO/Echo Complete Interpretation Summary The estimated ejection fraction is 55-60 %. RVSP estimated 45 mmhg No signficant cahnges from prior Echo in 10/2010 Ordering Physician: Jennifer Rubio Referring Physician: Addi Elizabeth Performed By: Kasandra Dunlap RDCS
[2021-03-08] MEDS: Diphenoxylate/Atrop 1 Tablet PO (11:39)
--- NOTE | 2021-03-08 12:02 | EX.PCM.CONCC ---
Assessment & Plan Assessment/Plan (1) Hypoxia: (2) Multiple myeloma: QUALIFIERS: Multiple myeloma remission status: in remission Qualified Code(s): C90.01 - Multiple myeloma in remission PLAN: RECOMMENDATIONS: 1. Initiate p.o. steroids and antibiotics 2. Wean oxygen as tolerated 3. Walking oximetry prior to discharge 4. Continue bronchodilators 5. Follow-up in 2 weeks with nurse practitioner 6. Outpatient work-up for COPD IMPRESSIONS: 1. Acute hypoxic respiratory insufficiency of unclear etiology Patient does have significant COPD changes on CT scan of the chest. Patient also has some groundglass opacities lower lobe. Patient's chemotherapy has not been associated with pneumonitis, but patient does have some groundglass opacities in the right base. Physical exam is not suggestive of congestive heart failure, so atypical pneumonia would be a consideration. Will initiate patient on p.o. steroids and antibiotics. Anticipate 5 days of Levaquin should be sufficient. Patient will need a work-up as an outpatient for COPD including PFT and walking oximetry. Patient does not have an elevated hemoglobin to suggest chronic hypoxia. Patient does have a slightly elevated bicarbonate that may suggest CO2 retention. Patient appears to have poor insight into her underlying lung disease. Additional work-up for hypoxia could be completed as an outpatient. Patient will need a walking oximetry prior to discharge. 2. Advanced age/hypertension/hypothyroidism/hypomagnesemia/multiple myeloma Complicates care, management, recovery and prognosis. Okay to continue with baseline medications from my perspective. HPI Consult Data Date of Consult: 03/08/21 HPI Narrative HPI Narrative: RICHARD BERRY is a 70 F, with past medical history listed below, who presents to [facility] [place] on 03/07/2021 secondary to generalized weakness and diarrhea. Patient does receive chemotherapy secondary to multiple myeloma with the last treatment on the . Patient states that she did not tolerate this well. Patient states that she felt that she was too weak to go for treatment. Patient denied any fever or chills. Patient has not had any productive cough or congestion. Patient denies any nausea or vomiting. Patient states she may have had diarrhea, but feels that she is loose at baseline. In the ER, patient was afebrile, normotensive but hypoxic. Patient was noted to be 86% on room air and was placed on 2 L nasal cannula. Patient reportedly does not use supplemental oxygen at baseline. Laboratory work-up showed a white blood cell count of 6.1, hemoglobin of 9.6 and platelets of 175. Chemistries were relatively unremarkable and the lactate was 0.6. UA was unremarkable. A CTA of the chest showed no PE or mediastinal lymphadenopathy. However, patient did have some scattered groundglass opacities at the base of the right lung on my evaluation. Patient had a walking oximetry in the ER and desaturated, so was admitted to the floor for further evaluation. Since being hospitalized, patient has continued to require supplemental oxygen. Patient states that she feels more strong than she did before, but otherwise does not feel much difference. Patient states she has used inhalers in the past intermittently with illnesses. Patient does not use any at baseline. Patient has not seen a cloud subject matter expert and does not believe that she has had a pulmonary function test. Patient does report a [id number] smoking history, but quit sometime ago. Patient does have Decadron therapy that she can take to help with tolerance of chemotherapy, but states she does not take steroids at baseline. Patient is unclear if this helps her breathing, but it does decrease her bone pain. Review of systems otherwise negative from a constitutional, HEENT, respiratory, cardiovascular, GI, genitourinary, musculoskeletal, skin, neurologic, psychiatric and hematologic system unless stated above. [facility] Medical History GERD (gastroesophageal reflux disease) HTN (hypertension) Hypothyroid Multiple myeloma Home Medications acyclovir 400 mg PO BID 08/16/17 [History Last Taken 03/07/21] dexamethasone [Decadron] 4 mg PO PRN PRN 08/16/17 [History Last Taken 03/01/21] hvewygki-vdo-brpm-FA-lutein [Centrum Silver Women Tablet] 1 ea PO DAILY 08/16/17 [History Last Taken 03/07/21] omeprazole 20 mg PO BID 08/16/17 [History Last Taken 03/07/21] bupropion HCl 100 mg PO BID 03/07/21 [History Last Taken 03/07/21] citalopram 20 mg PO DAILY 03/07/21 [History Last Taken 03/07/21] diphenoxylate-atropine 1 tab PO 4X/DAY PRN 03/07/21 [History Last Taken Unknown] levothyroxine [Synthroid] 125 mcg PO DAILY 03/07/21 [History Last Taken Unknown] lisinopril 20 mg PO DAILY 03/07/21 [History Last Taken 03/07/21] meclizine 25 mg PO BID PRN 03/07/21 [History Last Taken Unknown] metoprolol succinate 25 mg PO DAILY 03/07/21 [History Last Taken 03/07/21] selinexor [Xpovio] 80 mg PO FR 03/07/21 [History Last Taken 03/01/21] trazodone 50 mg PO QHS 03/07/21 [History Last Taken 03/06/21] Allergy/AdvReac Type Severity Reaction Status Date / Time No Known Allergies Allergy Verified 03/07/21 12:17 Social History Smoking Status: Former smoker ROS ROS Narrative See HPI Physical Exam Const alert and no apparent distress Constitutional Narrative: No conversational dyspnea General Appearance: cooperative and appears older than stated age HEENT normocephalic and head/scalp atraumatic Neck no lymphadenopathy and supple Chest Chest: abnormal inspection of the chest increased A-P diameter Resp no use of accessory muscles Auscultation: diminished lung sounds; Negative for rales, rhonchi or wheezes Cardio regular rate, regular rhythm and S1 normal heart sound GI normal to inspection, nondistended, normoactive bowel sounds and soft to palpation Extremity normal to inspection Skin no rashes or lesions noted and no wounds Neuro Sensorium / Orientation: awake and alert Psych affect normal Lab / Micro Data Result Diagrams: 03/08/21 08:05 03/08/21 08:05 Labs: Laboratory Results - last 24 hr 03/07/21 13:30: WBC 6.1, RBC 3.15 L, Hgb 9.6 L, Hct 29.0 L, MCV 92.1, MCH 30.5, MCHC 33.1, RDW Std Deviation 52.8 H, RDW Coeff of Willie 15.9 H, Plt Count 175, MPV 10.9, Immature Gran % (Auto) 1.500 H, Neut % (Auto) 74.6 H, Lymph % (Auto) 11.7 L, [place] % (Auto) 10.5 H, Eos % (Auto) 1.5, Baso % (Auto) 0.2, Absolute Neuts (auto) 4.5, Absolute Lymphs (auto) 0.71 L, Nucleated RBC % 0 03/07/21 13:30: Sodium 132 L, Potassium 3.9, Chloride 101, Carbon Dioxide 28.0, Anion Gap 3 L, BUN 16, Creatinine 0.71, Estim Creat Clear Calc 45.76, Est GFR (MDRD) Af Amer 105, Est GFR (MDRD) Non-Af 87, BUN/Creatinine Ratio 22.7 H, Glucose 75, Calcium 7.9 L, Total Bilirubin 0.50, Direct Bilirubin 0.09, AST 14 L, ALT 15, Alkaline Phosphatase 87, Total Protein 6.5, Albumin 2.6 L, Globulin 3.9 03/07/21 13:30: Lactic Acid 0.6 03/07/21 13:50: Urine Color Yellow, Urine Clarity Sl. Cloudy, Urine pH 7.0, Ur Specific [place] 1.005, Urine Protein Negative, Urine Glucose (UA) Normal, Urine Ketones Negative, Urine Occult Blood Negative, Urine Nitrite Negative, Urine Bilirubin Negative, Urine Urobilinogen Normal, Ur Leukocyte Esterase Negative, Urine RBC 0 SEEN, Urine WBC 0 SEEN, Ur Squamous Epith Cells 0-5 SEEN, Urine Bacteria 0 SEEN, Urine Mucus 0 SEEN 03/08/21 01:00: Magnesium 1.7 03/08/21 08:05: WBC 5.7, RBC 3.03 L, Hgb 9.4 L, Hct 28.5 L, MCV 94.1, MCH 31.0, MCHC 33.0, RDW Std Deviation 55.2 H, RDW Coeff of [place] 16.2 H, Plt Count 199, MPV 10.2, Immature Gran % (Auto) 1.100 H, Neut % (Auto) 73.2 H, Lymph % (Auto) 14.5 L, [place] % (Auto) 9.9, Eos % (Auto) 1.1, Baso % (Auto) 0.2, Absolute Neuts (auto) 4.2, Absolute Lymphs (auto) 0.82 L, Nucleated RBC % 0 03/08/21 08:05: Sodium 139, Potassium 3.7, Chloride 107, Carbon Dioxide 26.0, Anion Gap 6, BUN 8, Creatinine 0.60, Estim Creat Clear Calc 44.47, Est GFR (MDRD) Af Amer 126, Est GFR (MDRD) Non-Af 104, BUN/Creatinine Ratio 13.3, Glucose 81, Calcium 7.4 L, Total Bilirubin 0.40, AST 13 L, ALT 16, Alkaline Phosphatase 78, Total Protein 5.9 L, Albumin 2.4 L, Globulin 3.5, Albumin/Globulin Ratio 0.7 L 03/08/21 08:05: B-Natriuretic Peptide 507.8 H Micro: Microbiology 03/07/21 13:00 Stool Stool Lactoferrin - Final 03/07/21 13:00 Stool Enteric Bacteriology - Final 03/07/21 13:00 Stool C. difficile DNA Amplification - Final 03/07/21 23:10 Mucosa - Nose Influenza Types A,B Direct FA (EMEKA) - Final 03/07/21 13:30 Nasal Secretion SARS-CoV-2 Antigen (Rapid) - Final Radiology Impression Chest CTA 03/07/21 15:15 IMPRESSION: Normal CTA chest examination, without a demonstrated pulmonary embolism or arterial dissection. Electronically Signed: Job Haque MD at 16:05 EST Tel , Service support , Charges/Coding Visit Charges Inpatient E&M: 66816 Init Hosp L2
[2021-03-08] MEDS: predniSONE 20 MG Tablet 40 MG PO (13:15)
[2021-03-08] MEDS: levoFLOXacin 500 MG Tablet PO (13:15)
[2021-03-08] MEDS: Heparin Injection (Vial) 5,000 UNIT/ML VIAL 5000 UNIT SC ×2 (13:15→21:30)
--- NOTE | 2021-03-08 15:22 | CASEMGMT ---
ORACIO CM in to complete HSU form with patient. RN ARPITA explained HSU form to patient, patient voiced understanding. Patient signed HSU form and filed in chart. Patient provided with copy of signed HSU Form. Patient had no further questions or concerns at this time.
[2021-03-08] MEDS: traZODone 50 MG Tablet PO (21:30)
[2021-03-09] VITALS (15 sets, daily range): BP systolic 120–147; BP diastolic 56–78; PULSE 58–71; RESP 16–20; TEMP 36.4–36.9; O2SAT 84–98
[2021-03-09] MEDS: Levothyroxine 125 MCG Tablet PO (05:33)
[2021-03-09] MEDS: levoFLOXacin 500 MG Tablet PO (05:33)
[2021-03-09] MEDS: Heparin Injection (Vial) 5,000 UNIT/ML VIAL 5000 UNIT SC ×3 (05:33→21:32)
[2021-03-09 06:34] LABS: ALB/GLOB Ratio 0.7 RATIO (0.9-2.4); AST(SGOT) 17 U/L (15-37); Alanine Aminotransfer ALT/SGPT 14 U/L (13-56); Albumin, Serum 2.6 g/dL (3.2-5.0); Alkaline Phosphatase 83 U/L (45-117); Anion Gap 2 (5-15); BUN 9 mg/dL (7-18); BUN/Creat Ratio 13.6 RATIO (10-20); Calcium,Total 8.2 mg/dL (8.5-10.1); Chloride 110 mmol/L (98-107); Creatinine, Serum 0.66 mg/dL (0.55-1.02); EST Glomerular Filtration Rate 93 mL/min (>60); Est Glom Filt Rate - Afr Amer 113 mL/min (>60); Estimated Creatinine Clearance 44.47 ml/min; Globulin 3.8 g/dL (2.2-4.2); Glucose 98 mg/dL (74-106); Magnesium 2.5 mg/dL (1.6-2.6); Potassium 4.7 mmol/L (3.5-5.1); Protein, Total 6.4 g/dL (6.4-8.2); Sodium Level 140 mmol/L (136-145)
--- NOTE | 2021-03-09 08:12 | PN.CC_ITS ---
Assessment & Plan Assessment/Plan (1) Hypoxia: (2) Multiple myeloma: QUALIFIERS: Multiple myeloma remission status: in remission Qualified Code(s): C90.01 - Multiple myeloma in remission PLAN: RECOMMENDATIONS: 1. Complete 5 days of p.o. steroids and antibiotics 2. Walking oximetry prior to discharge 3. Okay to discharge on Combivent from a pulmonary perspective 4. Okay to discharge if able to tolerate walking without supplemental oxygen or able to arrange for supplemental oxygen 5. Follow-up in 2 weeks with nurse practitioner 6. Outpatient work-up for COPD IMPRESSIONS: 1. Acute hypoxic respiratory insufficiency of unclear etiology Patient does have significant COPD changes on CT scan of the chest. Patient also has some groundglass opacities lower lobe. Patient's chemotherapy has not been associated with pneumonitis, but patient does have some groundglass opacities in the right base. Physical exam is not suggestive of congestive heart failure, so atypical pneumonia would be a consideration. Will continue patient on p.o. steroids and antibiotics for 5 days. Patient will need a work- up as an outpatient for COPD including PFT and walking oximetry. Patient does not have an elevated hemoglobin to suggest chronic hypoxia. Patient does have a slightly elevated bicarbonate that may suggest CO2 retention. Patient appears to have poor insight into her underlying lung disease. Additional work-up for hypoxia could be completed as an outpatient. Patient will need a walking oximetry prior to discharge. 2. Advanced age/hypertension/hypothyroidism/hypomagnesemia/multiple myeloma Complicates care, management, recovery and prognosis. Okay to continue with baseline medications from my perspective. Subjective Subjective Patient subjectively feels slightly improved compared to yesterday. Patient did require supplemental oxygen overnight with sleep, but was saturating 98%. Patient states she feels strong enough to go home. Patient is not reporting any adverse effects to new medication. Objective Data Objective Data Vital Signs: Vital Signs Temp Pulse Resp BP Pulse Ox 36.8 C 58 L 18 147/61 H 94 03/09/21 05:53 03/09/21 05:53 03/09/21 05:53 03/09/21 05:53 03/09/21 07:11 Oxygen Flow Rate (L/min) [ 2 AMBULATING with Oxygen #1] Oxygen Flow Rate (L/min) [ 0 AMBULATING on Room Air] Oxygen Flow Rate (L/min) [At 0 REST on Room Air] Oxygen Flow Rate (L/min) 2 Oxygen Delivery Method Nasal Cannula Weight: 55.4 kg Body Mass Index (BMI) 20.3 Intake & Output: Intake and Output for Last 24 Hours 03/07/21 03/08/21 03/09/21 23:59 23:59 23:59 Intake Total 870 / 870 2466.5 / 2666.5 612.5 / 612.5 Balance 870 / 870 2466.5 / 2666.5 612.5 / 612.5 Lab / Micro Data Result Diagrams: 03/08/21 08:05 03/09/21 05:10 Labs: Laboratory Results - last 24 hr 03/08/21 08:05: WBC 5.7, RBC 3.03 L, Hgb 9.4 L, Hct 28.5 L, MCV 94.1, MCH 31.0, MCHC 33.0, RDW Std Deviation 55.2 H, RDW Coeff of [place] 16.2 H, Plt Count 199, MPV 10.2, Immature Gran % (Auto) 1.100 H, Neut % (Auto) 73.2 H, Lymph % (Auto) 14.5 L, [place] % (Auto) 9.9, Eos % (Auto) 1.1, Baso % (Auto) 0.2, Absolute Neuts (auto) 4.2, Absolute Lymphs (auto) 0.82 L, Nucleated RBC % 0 03/08/21 08:05: Sodium 139, Potassium 3.7, Chloride 107, Carbon Dioxide 26.0, Anion Gap 6, BUN 8, Creatinine 0.60, Estim Creat Clear Calc 44.47, Est GFR (MDRD) Af Amer 126, Est GFR (MDRD) Non-Af 104, BUN/Creatinine Ratio 13.3, Glucose 81, Calcium 7.4 L, Total Bilirubin 0.40, AST 13 L, ALT 16, Alkaline Phosphatase 78, Total Protein 5.9 L, Albumin 2.4 L, Globulin 3.5, Albumin/Globulin Ratio 0.7 L 03/08/21 08:05: B-Natriuretic Peptide 507.8 H 03/09/21 05:10: Sodium 140, Potassium 4.7, Chloride 110 H, Carbon Dioxide 28.0, Anion Gap 2 L, BUN 9, Creatinine 0.66, Estim Creat Clear Calc 44.47, Est GFR (MDRD) Af Amer 113, Est GFR (MDRD) Non-Af 93, BUN/Creatinine Ratio 13.6, Glucose 98, Calcium 8.2 L, Magnesium 2.5, Total Bilirubin 0.30, AST 17, ALT 14, Alkaline Phosphatase 83, Total Protein 6.4, Albumin 2.6 L, Globulin 3.8, Albumin/Globulin Ratio 0.7 L Micro: Microbiology 03/07/21 14:00 Blood Culture (Wb) - Left Hand Blood Culture - Preliminary No growth in 48 hours. 03/07/21 13:30 Blood Culture (Wb) - Port Blood Culture - Preliminary No growth in 48 hours. 03/07/21 13:00 Stool Stool Lactoferrin - Final 03/07/21 13:00 Stool Enteric Bacteriology - Final 03/07/21 13:00 Stool C. difficile DNA Amplification - Final 03/07/21 23:10 Mucosa - Nose Influenza Types A,B Direct FA (EMEKA) - Final 03/07/21 13:30 Nasal Secretion SARS-CoV-2 Antigen (Rapid) - Final Radiography Diagnostic Testing: Radiology Impression Echocardiogram 03/08/21 11:25 Interpretation Summary The estimated ejection fraction is 55-60 %. RVSP estimated 45 mmhg No signficant cahnges from prior Echo in 10/2010 Ordering Physician: Jennifer Rubio Referring Physician: Addi Elizabeth Performed By: Kasandra Dunlap RDCS Physical Exam Const alert and no apparent distress Constitutional Narrative: No conversational dyspnea General Appearance: cooperative and appears older than stated age HEENT normocephalic and head/scalp atraumatic Neck no lymphadenopathy and supple Chest Chest: abnormal inspection of the chest increased A-P diameter Resp no use of accessory muscles Auscultation: diminished lung sounds; Negative for rales, rhonchi or wheezes Cardio regular rate, regular rhythm and S1 normal heart sound GI normal to inspection, nondistended, normoactive bowel sounds and soft to palpation Extremity normal to inspection Skin no rashes or lesions noted and no wounds Neuro Sensorium / Orientation: awake and alert Psych affect normal Charges/Coding Visit Charges Inpatient E&M: 41365 Subs Hosp L2
[2021-03-09] MEDS: 0.9% Saline Lock 10 ML Syringe IV ×2 (09:48→21:30)
[2021-03-09] MEDS: Furosemide 20 MG/2 ML VIAL IV (09:48)
[2021-03-09] MEDS: predniSONE 20 MG Tablet 40 MG PO (09:52)
[2021-03-09] MEDS: Citalopram 20 MG Tablet PO (09:52)
[2021-03-09] MEDS: Metoprolol(XL)Succ 25 MG Tablet PO (09:53)
[2021-03-09] MEDS: Lisinopril 20 MG Tablet PO (09:53)
[2021-03-09] MEDS: buPROPion 100 MG Tablet PO (09:53)
[2021-03-09] MEDS: Pantoprazole Sodium 20 MG Tablet PO ×2 (09:53→21:31)
--- NOTE | 2021-03-09 11:56 | DS.PCM_ITS ---
Providers Date of Admission: 03/07/21 Date of Discharge: 03/10/21 Primary Care Physician: Dr. Addi Elizabeth MD Consultations 03/08/21 08:13 Consult: Nut Roaster / Pulmonary Medicine Routine Consulting Provider: Robert Mann Reason for Consult: Hypoxia, COPD EMERGENT Consult: No MD Notified: Yes Date Notified: 03/08/21 Time Notified: 11:37 Method of Notification: Verbal Reason For Visit: ACUTE HYPOXIC RESP FAILURE Diagnosis Discharge Diagnosis (1) Hypoxia: Status: Acute Code(s): R09.02 - Hypoxemia (2) Multiple myeloma: Status: Chronic Code(s): C90.00 - Multiple myeloma not having achieved remission Qualifiers: Multiple myeloma remission status: in remission Qualified Code(s): C90.01 - Multiple myeloma in remission Medications at Discharge Home Medications Centrum Silver Women 1 ea PO DAILY 08/16/17 acyclovir 400 mg PO BID 08/16/17 dexamethasone [Decadron] 4 mg PO PRN PRN 08/16/17 omeprazole 20 mg PO BID 08/16/17 Xpovio 80 mg PO FR 03/07/21 bupropion HCl 100 mg PO BID 03/07/21 citalopram 20 mg PO DAILY 03/07/21 diphenoxylate-atropine 1 tab PO 4X/DAY PRN 03/07/21 levothyroxine [Synthroid] 125 mcg PO DAILY 03/07/21 lisinopril 20 mg PO DAILY 03/07/21 meclizine 25 mg PO BID PRN 03/07/21 metoprolol succinate 25 mg PO DAILY 03/07/21 trazodone 50 mg PO QHS 03/07/21 ipratropium-albuterol [Combivent Respimat] 1 puff INHALATION Q4H 30 Days #4 g 03/09/21 levofloxacin 500 mg PO DAILY@0600 3 Days #3 tab 03/09/21 prednisone 40 mg PO BREAKFAST 3 Days #6 tab 03/09/21 Hospital Course Operations None Procedures None Summary of Care Provided Minutes Spent on Discharge: 50 Hospital Course: 70-year-old female with past medical history of multiple myeloma, on chemotherapy, who comes in with generalized weakness, diarrhea. Patient was found to be short of breath. She did drop her oxygen saturation to 86% on room air. CTA of the chest was negative for acute PE. Patient denied any underlying lung disease. [facility] patient was managed on 2 to 3 L of oxygen. Her stool studies were negative for acute C. difficile or enteric organisms. Pulmonology was consulted. Patient was started on empiric antibiotics and a short burst of steroid. Patient follow-up in the outpatient within 2 weeks with pulmonology. She did qualify for oxygen and was discharged home to follow-up. She initially was said to be discharged on 03/09/21 but all the pharmacies were closed. She was kept overnight. No acute events. Patient was discharged on 03/10/21 on oxygen. Physical Exam Narrative Physical exam: General: Alert, Oriented x3, Cooperative, No apparent distress, Well developed, on 2-3 L of oxygen HEENT: Atraumatic Oral: Moist Mucosa Neck: Supple Lungs: Diminished to auscultation Cardiovascular: HS I+II, regular, no murmurs Abdomen: Bowel Sounds Present, Soft, Non Tender Extremities: No edema Weight / BMI Weight Weight: 55.4 kg Body Mass Index (BMI) 20.3 ABG / Lab / Microbiology Data Result Diagrams: 03/08/21 08:05 03/10/21 07:00 Laboratory: Laboratory Results - last 24 hr 03/09/21 05:10: Sodium 140, Potassium 4.7, Chloride 110 H, Carbon Dioxide 28.0, Anion Gap 2 L, BUN 9, Creatinine 0.66, Estim Creat Clear Calc 44.47, Est GFR (MDRD) Af Amer 113, Est GFR (MDRD) Non-Af 93, BUN/Creatinine Ratio 13.6, Glucose 98, Calcium 8.2 L, Magnesium 2.5, Total Bilirubin 0.30, AST 17, ALT 14, Alkaline Phosphatase 83, Total Protein 6.4, Albumin 2.6 L, Globulin 3.8, Albumin/Globulin Ratio 0.7 L Microbiology: Microbiology 03/07/21 14:00 Blood Culture (Wb) - Left Hand Blood Culture - Preliminary No growth in 48 hours. 03/07/21 13:30 Blood Culture (Wb) - Port Blood Culture - Preliminary No growth in 48 hours. 03/07/21 13:00 Stool Stool Lactoferrin - Final 03/07/21 13:00 Stool Enteric Bacteriology - Final 03/07/21 13:00 Stool C. difficile DNA Amplification - Final 03/07/21 23:10 Mucosa - Nose Influenza Types A,B Direct FA (EMEKA) - Final 03/07/21 13:30 Nasal Secretion SARS-CoV-2 Antigen (Rapid) - Final Radiography Diagnostic Testing: Radiology Impression Echocardiogram 03/08/21 11:25 Interpretation Summary The estimated ejection fraction is 55-60 %. RVSP estimated 45 mmhg No signficant cahnges from prior Echo in 10/2010 Ordering Physician: Jennifer Rubio Referring Physician: Addi Elizabeth Performed By: Kasandra Dunlap RDCS D/C Instructions Discharge Diet: No restrictions Meaningful Use Info Meaningful Use Diagnoses (Choose all that apply): None applicable Discharge Plan Admission Admit Date/Time: 03/07/21 18:50 Primary Reason for Your Visit: Hypoxia Attending Provider: Jennifer Rubio Primary Care Provider: Addi Elizabeth Consulting Providers: Robert Mann Instructions Additional Instructions / Restrictions: You are being discharged with oxygen. Continue to use your oxygen all the time. Continue to use your incentive spirometer. Continue to remain active and eat healthy. Complete your prednisone and antibiotic as prescribed. Continue to use your inhaler as needed for shortness of breath. Discharge Orders/Prescriptions Prescriptions: New prednisone 20 mg Tablet 40 mg PO BREAKFAST 3 Days Qty: 6 RF: 0 levofloxacin 500 mg Tablet 500 mg PO DAILY@0600 3 Days Qty: 3 RF: 0 Combivent Respimat 20-100 mcg/actuation mist 1 puff inhalation Q4H 30 Days Qty: 4 RF: 0 Continued acyclovir 400 MG tablet 400 mg PO BID RF: 0 dexamethasone [Decadron] 4 MG tablet 4 mg PO PRN PRN (Reason: CHEMO) RF: 0 omeprazole 20 MG capsule 20 mg PO BID RF: 0 Centrum Silver Women 1 EACH tablet 1 ea PO DAILY RF: 0 trazodone 50 mg tablet 50 mg PO QHS RF: 0 lisinopril 20 mg tablet 20 mg PO DAILY RF: 0 diphenoxylate-atropine 2.5-0.025 mg tablet 1 tab PO 4X/DAY PRN (Reason: STOOL) RF: 0 bupropion HCl 100 mg tablet 100 mg PO BID RF: 0 citalopram 20 mg tablet 20 mg PO DAILY RF: 0 meclizine 25 mg tablet 25 mg PO BID PRN (Reason: Dizziness) RF: 0 levothyroxine [Synthroid] 125 mcg tablet 125 mcg PO DAILY RF: 0 metoprolol succinate 25 mg tablet extended release 24 hr 25 mg PO DAILY RF: 0 Xpovio 80 mg/week (40 mg x 2) tablet 80 mg PO FR RF: 0 Referrals / Follow Up: Addi Elizabeth MD [Primary Care Provider] - Within 2 Weeks Isabel Mas NP, MANAGER THERAPY-C [Nurse Practitioner] - Within 2 Weeks Disposition Disposition (needs filled in before D/C Order can be placed): Home, Self Care Charges/Coding Visit Charges Inpatient E&M: 52776 Disch Hosp
[2021-03-09] MEDS: Ipratropium/Albuterol Sulfate 3 ML AMPUL.NEB INHALATION ×2 (13:31→19:27)
--- NOTE | 2021-03-09 15:37 | PCM.PN.HOSP ---
Subjective Subjective Follow-up on acute hypoxic respiratory failure Patient was seen and examined. She was due for discharge. However her pharmacy is closed and oxygen supply company will not be working. Patient agreed to stay to the next day to have this reevaluated. Objective Data Objective Data Vital Signs: Vital Signs Temp Pulse Resp BP Pulse Ox 98.1 F 70 18 122/66 H 97 03/09/21 15:09 03/09/21 15:09 03/09/21 15:09 03/09/21 15:09 03/09/21 15:09 Oxygen Flow Rate (L/min) [ 3 AMBULATING with Oxygen #2] Oxygen Flow Rate (L/min) [ 2 AMBULATING with Oxygen #1] Oxygen Flow Rate (L/min) [ 0 AMBULATING on Room Air] Oxygen Flow Rate (L/min) [At 0 REST on Room Air] Oxygen Flow Rate (L/min) 2 Oxygen Delivery Method Nasal Cannula Weight: 55.4 kg Body Mass Index (BMI) 20.3 Intake & Output: Intake and Output for Last 24 Hours 03/07/21 03/08/21 03/09/21 23:59 23:59 23:59 Intake Total 870 / 870 2466.5 / 2666.5 612.5 / 612.5 Output Total 200 / 200 Balance 870 / 870 2466.5 / 2666.5 412.5 / 412.5 Lab / Micro Data Result Diagrams: 03/08/21 08:05 03/09/21 05:10 Labs: Laboratory Results - last 24 hr 03/09/21 05:10: Sodium 140, Potassium 4.7, Chloride 110 H, Carbon Dioxide 28.0, Anion Gap 2 L, BUN 9, Creatinine 0.66, Estim Creat Clear Calc 44.47, Est GFR (MDRD) Af Amer 113, Est GFR (MDRD) Non-Af 93, BUN/Creatinine Ratio 13.6, Glucose 98, Calcium 8.2 L, Magnesium 2.5, Total Bilirubin 0.30, AST 17, ALT 14, Alkaline Phosphatase 83, Total Protein 6.4, Albumin 2.6 L, Globulin 3.8, Albumin/Globulin Ratio 0.7 L Micro: Microbiology 03/07/21 14:00 Blood Culture (Wb) - Left Hand Blood Culture - Preliminary No growth in 48 hours. 03/07/21 13:30 Blood Culture (Wb) - Port Blood Culture - Preliminary No growth in 48 hours. 03/07/21 13:00 Stool Stool Lactoferrin - Final 03/07/21 13:00 Stool Enteric Bacteriology - Final 03/07/21 13:00 Stool C. difficile DNA Amplification - Final 03/07/21 23:10 Mucosa - Nose Influenza Types A,B Direct FA (EMEKA) - Final 03/07/21 13:30 Nasal Secretion SARS-CoV-2 Antigen (Rapid) - Final Physical Exam Narrative Physical exam: General: Alert, Oriented x3, Cooperative, No apparent distress, Well developed, on 2-3 L of oxygen HEENT: Atraumatic Oral: Moist Mucosa Neck: Supple Lungs: Diminished to auscultation Cardiovascular: HS I+II, regular, no murmurs Abdomen: Bowel Sounds Present, Soft, Non Tender Extremities: No edema Assessment & Plan Assessment/Plan (1) Hypoxia: (2) Multiple myeloma: QUALIFIERS: Multiple myeloma remission status: in remission Qualified Code(s): C90.01 - Multiple myeloma in remission PLAN: 1. Acute Hypoxic Respiratory failure likely secondary to progressive COPD Patient with no formal diagnosis of COPD History of chronic smoking Consult pulmonology to establish care; will need PFTs in the outpatient 2. Diarrhea, appears to have resolved, stool for C. difficile and enteric panel was negative 3. Hypertension, controlled, continue lisinopril and metoprolol 4. Hypothyroidism, continue on synthroid 5. Hyponatremia, acute, likely hypovolemic, resolved 6. Hypomagnesemia, replaced, recheck in am Charges/Coding Visit Charges Inpatient E&M: 81238 Subs Hosp L2
[2021-03-09] MEDS: traZODone 50 MG Tablet PO (21:31)
[2021-03-10] VITALS (7 sets, daily range): BP systolic 115–138; BP diastolic 67–81; PULSE 63–100; RESP 16–18; TEMP 36.7–37; O2SAT 94–98
[2021-03-10] MEDS: Levothyroxine 125 MCG Tablet PO (06:22)
[2021-03-10] MEDS: levoFLOXacin 500 MG Tablet PO (06:22)
[2021-03-10] MEDS: Heparin Injection (Vial) 5,000 UNIT/ML VIAL 5000 UNIT SC (06:22)
[2021-03-10] MEDS: Ipratropium/Albuterol Sulfate 3 ML AMPUL.NEB INHALATION (07:26)
[2021-03-10 07:48] LABS: Anion Gap 5 (5-15); BUN 17 mg/dL (7-18); BUN/Creat Ratio 22.2 RATIO (10-20); Calcium,Total 8.8 mg/dL (8.5-10.1); Chloride 105 mmol/L (98-107); Creatinine, Serum 0.77 mg/dL (0.55-1.02); EST Glomerular Filtration Rate 79 mL/min (>60); Est Glom Filt Rate - Afr Amer 95 mL/min (>60); Estimated Creatinine Clearance 44.47 ml/min; Glucose 86 mg/dL (74-106); Sodium Level 137 mmol/L (136-145)
[2021-03-10] MEDS: predniSONE 20 MG Tablet 40 MG PO (08:19)
--- NOTE | 2021-03-10 08:24 | PN.CC_ITS ---
Assessment & Plan Assessment/Plan (1) Hypoxia: (2) Multiple myeloma: QUALIFIERS: Multiple myeloma remission status: in remission Qualified Code(s): C90.01 - Multiple myeloma in remission PLAN: RECOMMENDATIONS: 1. Complete 5 days of p.o. steroids and antibiotics 2. Walking oximetry prior to discharge 3. Okay to discharge on Combivent from a pulmonary perspective 4. Okay to discharge if able to tolerate walking without supplemental oxygen or able to arrange for supplemental oxygen 5. Follow-up in 2 weeks with nurse practitioner 6. Outpatient work-up for COPD 7. Will sign off from a critical care/pulmonary perspective IMPRESSIONS: 1. Acute hypoxic respiratory insufficiency of unclear etiology Patient does have significant COPD changes on CT scan of the chest. Patient also has some groundglass opacities lower lobe. Patient's chemotherapy has not been associated with pneumonitis, but patient does have some groundglass opacities in the right base. Physical exam is not suggestive of congestive heart failure, so atypical pneumonia would be a consideration. Will continue patient on p.o. steroids and antibiotics for 5 days. Patient will need a work- up as an outpatient for COPD including PFT and walking oximetry. Patient does not have an elevated hemoglobin to suggest chronic hypoxia. Patient does have a slightly elevated bicarbonate that may suggest CO2 retention. Patient appears to have poor insight into her underlying lung disease. Okay to discharge on supplemental oxygen. Will give Lasix today, but this should not indicate the patient requires additional hospitalization 2. Advanced age/hypertension/hypothyroidism/hypomagnesemia/multiple myeloma Complicates care, management, recovery and prognosis. Okay to continue with baseline medications from my perspective. Subjective Subjective Patient did well overnight. Patient not discharged yesterday secondary to concerns for getting medications. Patient overall feels subjectively slightly improved compared to previous. Patient is still requiring supplemental oxygen with exertion, which is new for her. Objective Data Objective Data Vital Signs: Vital Signs Temp Pulse Resp BP Pulse Ox 36.7 C 77 18 115/67 94 03/10/21 08:15 03/10/21 08:15 03/10/21 08:15 03/10/21 08:15 03/10/21 08:15 Oxygen Flow Rate (L/min) [ 3 AMBULATING with Oxygen #2] Oxygen Flow Rate (L/min) [ 2 AMBULATING with Oxygen #1] Oxygen Flow Rate (L/min) [ 0 AMBULATING on Room Air] Oxygen Flow Rate (L/min) [At 0 REST on Room Air] Oxygen Flow Rate (L/min) 2 Oxygen Delivery Method Nasal Cannula Weight: 55.4 kg Body Mass Index (BMI) 20.3 Intake & Output: Intake and Output for Last 24 Hours 03/08/21 03/09/21 03/10/21 23:59 23:59 23:59 Intake Total 2466.5 / 2666.5 612.5 / 612.5 Output Total 200 / 200 Balance 2466.5 / 2666.5 412.5 / 412.5 Lab / Micro Data Result Diagrams: 03/08/21 08:05 03/10/21 07:00 Labs: Laboratory Results - last 24 hr 03/10/21 07:00: Sodium 137, Potassium 4.0, Chloride 105, Carbon Dioxide 27.0, Anion Gap 5, BUN 17, Creatinine 0.77, Estim Creat Clear Calc 44.47, Est GFR (MDRD) Af Amer 95, Est GFR (MDRD) Non-Af 79, BUN/Creatinine Ratio 22.2 H, Glucose 86, Calcium 8.8 Micro: Microbiology 03/07/21 14:00 Blood Culture (Wb) - Left Hand Blood Culture - Preliminary No growth in 48 hours. 03/07/21 13:30 Blood Culture (Wb) - Port Blood Culture - Preliminary No growth in 48 hours. 03/07/21 13:00 Stool Stool Lactoferrin - Final 03/07/21 13:00 Stool Enteric Bacteriology - Final 03/07/21 13:00 Stool C. difficile DNA Amplification - Final 03/07/21 23:10 Mucosa - Nose Influenza Types A,B Direct FA (EMEKA) - Final 03/07/21 13:30 Nasal Secretion SARS-CoV-2 Antigen (Rapid) - Final Physical Exam Const alert and no apparent distress Constitutional Narrative: No conversational dyspnea General Appearance: cooperative and appears older than stated age HEENT normocephalic and head/scalp atraumatic Neck no lymphadenopathy and supple Chest Chest: abnormal inspection of the chest increased A-P diameter Resp no use of accessory muscles Auscultation: diminished lung sounds; Negative for rales, rhonchi or wheezes Cardio regular rate, regular rhythm and S1 normal heart sound GI normal to inspection, nondistended, normoactive bowel sounds and soft to palpation Extremity normal to inspection Skin no rashes or lesions noted and no wounds Neuro Sensorium / Orientation: awake and alert Psych affect normal Charges/Coding Visit Charges Inpatient E&M: 57069 Subs Hosp L2
[2021-03-10] MEDS: Furosemide 40 MG Tablet PO (09:14)
[2021-03-10] MEDS: buPROPion 100 MG Tablet PO (10:37)
[2021-03-10] MEDS: Citalopram 20 MG Tablet PO (10:37)
[2021-03-10] MEDS: Metoprolol(XL)Succ 25 MG Tablet PO (10:37)
[2021-03-10] MEDS: Lisinopril 20 MG Tablet PO (10:37)
[2021-03-10] MEDS: Pantoprazole Sodium 20 MG Tablet PO (10:37)
== END 2021-03-10 11:54 | disposition home or self-care (01) ==
LOC: ED 16:50 → MS3 17:31
PROVIDERS: Hospitalist; Internal Medicine Critical Care Medicine; Admitting Provider Hospitalist; Emergency Provider Emergency Medicine; PCP Family Medicine; Visit Provider Internal Medicine
DX: J96.01 Acute respiratory failure with hypoxia (principal); C90.01 Multiple myeloma in remission; K21.9 Gastro-esophageal reflux disease without esophagitis; I10 Essential (primary) hypertension; E03.9 Hypothyroidism, unspecified; Z79.899 Other long term (current) drug therapy; Z79.890 Hormone replacement therapy; Z87.891 Personal history of nicotine dependence; E87.1 Hypo-osmolality and hyponatremia; Z66 Do not resuscitate; E83.42 Hypomagnesemia; K52.9 Noninfective gastroenteritis and colitis, unspecified; I49.3 Ventricular premature depolarization; I07.1 Rheumatic tricuspid insufficiency; R53.1 Weakness
CPT/HCPCS: 36415; 36591; 71275; 80048; 80053; 80076; 81001; 83605; 83630; 83735; 83880; 85025; 87040; 87177; 87209; 87426; 87493; 87506; 87804; 93005; 93306; 94640; 94762; 96361; 96372; 96374; 97802; 99218; 99251; 99285; J7030; J7040; P9612; Q9967; A4216; G0378; G0463; J1940

== ENCOUNTER 2021-07-31 17:01 | Emergency (ER) | payer MEDICARE, OTHER, SELFPAY ==
[2021-07-31 17:02] VITALS: BP 191/89; PULSE 111; RESP 18; TEMP 38.8; O2SAT 93; BMI 20.5
[2021-07-31 17:08] VITALS: BP 191/89; PULSE 111; RESP 18; TEMP 38.8; O2SAT 93
--- NOTE | 2021-07-31 17:19 | EKG12_ITS ---
Test Reason : Blood Pressure : / mmHG Vent. Rate : 113 BPM Atrial Rate : 113 BPM P-R Int : 160 ms QRS Dur : 078 ms QT Int : 304 ms P-R-T Axes : 069 -15 070 degrees QTc Int : 416 ms Sinus tachycardia Right atrial enlargement Borderline ECG Confirmed by DAPHNEY BROWN, PRATEEK ([id number]), make up editor SARAH LEDESMA ([id number]) on 08/02/2021 10:56:19 A M Referred By: PL Confirmed By:DOC SHELLEY MD
--- NOTE | 2021-07-31 17:21 | EDS_ITS ---
HPI History of Present Illness Chief Complaint: Fever Informant: patient and spouse/S.O. Narrative Narrative: History is from both patient and spouse. They are arguing about the details. Patient presents with a fever. She has had off-and-on fever for 2 or 3 days. But she is says she feels fine. She knows she has a fever but does not feel sick. She has an ongoing cough for a month but it has been getting better. No sputum production. There is no nausea vomiting diarrhea or urinary symptoms. She states her appetite might be down slightly and she is not drinking as much but is not because she is nauseated. She has not had COVID but they have had vaccines and it sounds like they have had both boosters. They do not know of anyone else that is ill. She has a history of multiple myeloma but has not had any chemotherapy since 2020. does admit that she has been coughing but also admits its been getting better. He is concerned that she is sick because of the fever. He called EMS after the patient had refused to be driven in. He just wants to make sure she is okay. [facility] Medical History GERD (gastroesophageal reflux disease) HTN (hypertension) Hypothyroid Multiple myeloma Home Medications Centrum Silver Women 1 ea PO DAILY 08/16/17 [History Last Taken 03/07/21] acyclovir 400 mg PO BID 08/16/17 [History Last Taken 03/07/21] omeprazole 20 mg PO BID 08/16/17 [History Last Taken 03/07/21] bupropion HCl 100 mg PO BID 03/07/21 [History Last Taken 03/07/21] citalopram 20 mg PO DAILY 03/07/21 [History Last Taken 03/07/21] diphenoxylate-atropine 1 tab PO 4X/DAY PRN 03/07/21 [History Last Taken Unknown] levothyroxine [Synthroid] 125 mcg PO DAILY 03/07/21 [History Last Taken Unknown] lisinopril 20 mg PO DAILY 03/07/21 [History Last Taken 03/07/21] meclizine 25 mg PO BID PRN 03/07/21 [History Last Taken Unknown] metoprolol succinate 25 mg PO DAILY 03/07/21 [History Last Taken 03/07/21] trazodone 50 mg PO QHS 03/07/21 [History Last Taken 03/06/21] ipratropium-albuterol [Combivent Respimat] 1 puff INHALATION Q4H 30 Days #4 g 03/09/21 [Rx Last Taken Unknown] levofloxacin 500 mg PO DAILY #7 tab 07/31/21 [Rx Last Taken Unknown] Allergy/AdvReac Type Severity Reaction Status Date / Time No Known Allergies Allergy Verified 07/31/21 17:07 Social History Smoking Status: Current every day smoker tobacco type: cigarettes and e- cigarettes ROS ROS ED Constitutional Constitutional ED: Reports chills, fever(s) and subjective; Denies weight loss Eyes Eyes: Denies blurry vision ENT ENT ED: Denies rhinorrhea or sore throat Cardiovascular Cardiovascular: Denies chest pain or palpitations Respiratory/Chest Respiratory/Chest: Reports cough; Denies dyspnea or sputum Gastrointestinal Gastrointestinal: Denies abdominal pain, diarrhea, nausea or vomiting Genitourinary Genitourinary ED: Denies dysuria, hematuria or urinary frequency Musculoskeletal Musculoskeletal: Denies back pain or myalgias Integumentary Denies rash Neurologic Neurologic: Denies headache(s) Endocrine Endocrinology: Denies polydipsia or polyuria Allergic/Immunologic Allergic/Immunologic ED: Denies urticaria EXAM Physical Exam Const Vital Signs: 07/31/21 17:02 07/31/21 17:08 07/31/21 18:12 Temperature 101.9 F H 101.9 F H 102.5 F H Temperature Source Oral Oral Oral Pulse Rate 111 H 111 H 107 H Respiratory Rate 18 18 18 Respiratory Effort Normal Non-Labored Blood Pressure 191/89 H 191/89 H 191/89 H Blood Pressure Mean 123 123 123 Pulse Ox 93 93 93 Oxygen Delivery Method Room Air Room Air Room Air 07/31/21 19:20 Temperature 98.5 F Temperature Source Oral Pulse Rate 107 H Respiratory Rate 18 Respiratory Effort Blood Pressure 158/91 H Blood Pressure Mean 113 Pulse Ox 94 Oxygen Delivery Method Room Air Positive well nourished and well developed General Appearance ED: well developed and NAD; Negative for cyanotic or diaphoretic HEENT Reports dry mucous membranes HEENT Narrative: Mildly dry mucous member Mouth ED: Yes dry mucous membranes Mouth: dry mucous membranes Eyes General Eye ED: Negative for pale conjunctiva or scleral icterus Neck no JVD Chest Wall inspection of chest normal Resp normal respiratory effort and clear to auscultation bilaterally Auscultation: Negative for rales or rhonchi Cardio regular rhythm Rate: tachycardic GI normal to inspection, nondistended, normoactive bowel sounds, non-tender and non-distended Palpation: soft Back/Spine no CVA tenderness Extremity normal to inspection General Extremety ED: Negative for edema or tenderness General Extremity: Negative for edema Neuro oriented x3 Neuro Narrative: Patient is hard of hearing but ANO x3. Sensorium / Orientation: alert Psych mental status grossly normal Skin no rashes or lesions noted and no wounds MDM MDM MDM Narrative Medical decision making narrative: Patient's CBC shows significantly elevated white count at 20,000. Electrolytes are overall unremarkable. Liver function tests are overall unremarkable. Lactate is normal. Troponin is normal. Her urine does show signs of UTI. However, she also has signs of a right-sided pneumonia on her chest x-ray. We walked the patient. Her lowest oxygen level was 90%. Patient states she does not want to come in the hospital. She does not feel ill. She has a mild cough. She is eating and drinking. She has an O2 sat at home and she can watch it. We discussed how to use this with her and her . We told her to have a low threshold for return. But since she is not hypoxic and does not feel ill we will trial her as an outpatient. We will start her on Levaquin. She states amoxicillin and penicillins have caused problems. Levaquin should cover both pulmonary and urine sources. Lab Data Attestation: I reviewed the patient's lab results. Labs: Laboratory Results - last 24 hr 07/31/21 07/31/21 07/31/21 17:20 17:20 17:20 WBC 20.9 H RBC 4.05 L Hgb 12.1 Hct 36.9 L MCV 91.1 MCH 29.9 MCHC 32.8 RDW Std Deviation 42.5 RDW Coeff of Willie 12.8 Plt Count 294 MPV 9.9 Immature Gran % (Auto) 0.500 Neut % (Auto) 85.8 H Lymph % (Auto) 7.6 L Wirt % (Auto) 5.2 Eos % (Auto) 0.7 Baso % (Auto) 0.2 Absolute Neuts (auto) 17.9 H Absolute Lymphs (auto) 1.58 Nucleated RBC % 0 Sodium 134 L Potassium 3.9 Chloride 102 Carbon Dioxide 28.0 Anion Gap 4 L BUN 13 Creatinine 0.70 Estim Creat Clear Calc 44.88 Est GFR (MDRD) Af Amer 106 Est GFR (MDRD) Non-Af 88 BUN/Creatinine Ratio 18.7 Glucose 123 H Lactic Acid 1.6 Calcium 8.8 Total Bilirubin 0.30 AST 18 ALT 22 Alkaline Phosphatase 101 Troponin I High Sens Total Protein 7.0 Albumin 3.3 Globulin 3.7 Albumin/Globulin Ratio 0.9 Urine Color Urine Clarity Urine pH Ur Specific [place] Urine Protein Urine Glucose (UA) Urine Ketones Urine Occult Blood Urine Nitrite Urine Bilirubin Urine Urobilinogen Ur Leukocyte Esterase Urine RBC Urine WBC Ur Squamous Epith Cells Urine Bacteria Urine Mucus 07/31/21 07/31/21 17:20 17:42 WBC RBC Hgb Hct MCV MCH MCHC RDW Std Deviation RDW Coeff of Willie Plt Count MPV Immature Gran % (Auto) Neut % (Auto) Lymph % (Auto) Wirt % (Auto) Eos % (Auto) Baso % (Auto) Absolute Neuts (auto) Absolute Lymphs (auto) Nucleated RBC % Sodium Potassium Chloride Carbon Dioxide Anion Gap BUN Creatinine Estim Creat Clear Calc Est GFR (MDRD) Af Amer Est GFR (MDRD) Non-Af BUN/Creatinine Ratio Glucose Lactic Acid Calcium Total Bilirubin AST ALT Alkaline Phosphatase Troponin I High Sens 8 Total Protein Albumin Globulin Albumin/Globulin Ratio Urine Color Yellow Urine Clarity Sl. Cloudy Urine pH 6.0 Ur Specific [place] 1.015 Urine Protein 30 H Urine Glucose (UA) Normal Urine Ketones Negative Urine Occult Blood 50 H Urine Nitrite Positive H Urine Bilirubin Negative Urine Urobilinogen Normal Ur Leukocyte Esterase 500 H Urine RBC 5-10 SEEN Urine WBC 25-50 SEEN Ur Squamous Epith Cells 5-10 SEEN Urine Bacteria 4+ Urine Mucus 0 SEEN Radiography Diagnostic Testing: Clinical Impression(s) from Imaging Studies Chest X-Ray 07/31/21 17:50 IMPRESSION: 1. Presence of a moderate sized mid right lung pneumonia. 2. Left ventricular cardiac configuration with borderline cardiomegaly, but no heart failure. 3. No other active cardiopulmonary disease. 4. Right-sided Port-A-Cath with its distal tip in the superior vena cava. 5. Mild demineralization. Electronically Signed: Lenny Oneal MD at 18:08 EDT , Discharge Plan Triage Chief Complaint: Fever ED Provider: Ferdinand Pollack Dx/Rx/DC Orders Clinical Impression: Pneumonia involving right lung, Acute UTI, Leukocytosis Instructions: ED Pneumonia (Adult) Prescriptions: New levofloxacin [levofloxacin] 500 MG tablet 500 mg PO DAILY Qty: 7 RF: 0 No Action acyclovir 400 MG tablet 400 mg PO BID RF: 0 omeprazole 20 MG capsule 20 mg PO BID RF: 0 Centrum Silver Women 1 EACH tablet 1 ea PO DAILY RF: 0 trazodone 50 mg tablet 50 mg PO QHS RF: 0 lisinopril 20 mg tablet 20 mg PO DAILY RF: 0 diphenoxylate-atropine 2.5-0.025 mg tablet 1 tab PO 4X/DAY PRN (Reason: STOOL) RF: 0 bupropion HCl 100 mg tablet 100 mg PO BID RF: 0 citalopram 20 mg tablet 20 mg PO DAILY RF: 0 meclizine 25 mg tablet 25 mg PO BID PRN (Reason: Dizziness) RF: 0 levothyroxine [Synthroid] 125 mcg tablet 125 mcg PO DAILY RF: 0 metoprolol succinate 25 mg tablet extended release 24 hr 25 mg PO DAILY RF: 0 Combivent Respimat 20-100 mcg/actuation mist 1 puff inhalation Q4H 30 Days Qty: 4 RF: 0 Primary Care Provider: Addi Elizabeth Referrals: Addi Elizabeth MD [Primary Care Provider] - 3-5 Days Disposition Disposition: Home, Self Care
[2021-07-31] MEDS: 0.9% Normal Saline 1,000 ML 1000 ML IV (17:24)
[2021-07-31 17:34] LABS: Absolute Lymphocyte Count 1.58 X10^3/uL (0.83-4.51); Absolute Neutrophil Count 17.9 X10^3/uL (2.0-7.7); Basophil# 0.05 X10^3/uL; Basophil% 0.2 % (0-1); Eosinophil# 0.15 X10^3/uL; Eosinophils% 0.7 % (0-5); Hematocrit 36.9 % (37-47); Hemoglobin 12.1 g/dL (12.0-15.0); Lymphocyte # 1.58 X10^3/ul (0.83-4.51); Lymphocyte % 7.6 % (19-41); Mean Corp Hgb Conc 32.8 g/dL (32-36); Mean Corpuscular Hgb 29.9 pg (27.0-32.0); Mean Corpuscular Volume 91.1 fL (81-99); Mean Platelet Vol. 9.9 fl (6.2-12.0); Monocyte# 1.08 X10^3/uL; Monocyte% 5.2 % (0-10); NRBC Flagged by Analyzer 0 % (0-5); Neutrophil # 17.89 X10^3/uL (2.7-7.7); Neutrophil % 85.8 % (47-70); Platelet Count 294 K/mm3 (150-450); RBC Distribution Width CV 12.8 % (11.6-14.6); RBC Distribution Width SD 42.5 fl (35.1-43.9); Red Blood Count 4.05 M/mm3 (4.2-5.4); White Blood Count 20.9 K/mm3 (4.4-11.0)
[2021-07-31] MEDS: Acetaminophen 325 MG Tablet 650 MG PO (17:38)
[2021-07-31 17:49] LABS: Mucous, Urine 0 SEEN /hpf (<or=2+)
--- NOTE | 2021-07-31 17:50 | RAD_ITS ---
STUDY: AP PORTABLE UPRIGHT CHEST X-RAY OF 1749 HOURS ON 07/31/2021 REASON FOR EXAM: 70-year-old female with a cough. TECHNIQUE: A single view AP portable upright chest x-ray was obtained per protocol. COMPARISON: 08/16/2017. FINDINGS: Mild demineralization. Right-sided Port-A-Cath with its distal tip in the superior vena cava. Left ventricular cardiac configuration with borderline cardiomegaly, but no heart failure. Presence of a 6.2 cm in diameter patchy infiltrate in the mid right lung--compatible with a pneumonia. No other infiltrates, atelectasis, or effusion. No heart failure. RAD/Chest 1 View (Portable) IMPRESSION: 1. Presence of a moderate sized mid right lung pneumonia. 2. Left ventricular cardiac configuration with borderline cardiomegaly, but no heart failure. 3. No other active cardiopulmonary disease. 4. Right-sided Port-A-Cath with its distal tip in the superior vena cava. 5. Mild demineralization. Electronically Signed: Lenny Oneal MD at 18:08 EDT ,
[2021-07-31 17:52] LABS: ALB/GLOB Ratio 0.9 RATIO (0.9-2.4); AST(SGOT) 18 U/L (15-37); Alanine Aminotransfer ALT/SGPT 22 U/L (13-56); Albumin, Serum 3.3 g/dL (3.2-5.0); Alkaline Phosphatase 101 U/L (45-117); Anion Gap 4 (5-15); BUN 13 mg/dL (7-18); BUN/Creat Ratio 18.7 RATIO (10-20); Calcium,Total 8.8 mg/dL (8.5-10.1); Chloride 102 mmol/L (98-107); EST Glomerular Filtration Rate 88 mL/min (>60); Est Glom Filt Rate - Afr Amer 106 mL/min (>60); Estimated Creatinine Clearance 44.88 ml/min; Globulin 3.7 g/dL (2.2-4.2); Glucose 123 mg/dL (74-106); Potassium 3.9 mmol/L (3.5-5.1); Sodium Level 134 mmol/L (136-145)
[2021-07-31 18:12] VITALS: BP 191/89; PULSE 107; RESP 18; TEMP 39.2; O2SAT 93
[2021-07-31 18:25] LABS: Color, Urine Yellow (Yellow); Glucose, Dipstick Normal (Normal); Ketone-Dipstick Negative (Negative); Leukocyte Esterase-Dipstick 500 /ul (Negative); Nitrite-Dipstick Positive (Negative); Occult Blood-Urine 50 /ul (Negative); Protein-Dipstick 30 mg/dl (Negative); Specific Gravity, Urine 1.015 (1.002-1.030); Urine Bilirubin Dipstick Negative (Negative); Urine Clarity Sl. Cloudy (Clear); Urine Urobilinogen Normal (Normal)
[2021-07-31 18:42] LABS: Troponin-I HS 8 pg/mL (3.0-54.0)
[2021-07-31 18:58] LABS: Red Blood Cells-Urine 5-10 SEEN /hpf (0-5); Squamous Epithelial Cells - UA 5-10 SEEN /hpf (5-10); White Blood Cells 25-50 SEEN /hpf (0-5)
[2021-07-31 18:59] LABS: Bacteria 4+ /hpf (None Seen)
[2021-07-31 19:20] VITALS: BP 158/91; PULSE 107; RESP 18; TEMP 36.9; O2SAT 94
[2021-07-31 19:22] LABS: Lactic Acid 1.6 mmol/L (0.4-1.9)
[2021-07-31 20:27] VITALS: O2SAT 97
[2021-07-31] MEDS: levoFLOXacin 750 MG Tablet PO (20:51)
[2021-07-31 20:55] VITALS: BP 144/77; PULSE 99; RESP 16; O2SAT 94
== END 2021-07-31 21:03 | disposition home or self-care (01) ==
PROVIDERS: Emergency Provider Emergency Medicine; PCP Family Medicine; Visit Provider Emergency Medicine
DX: J18.9 Pneumonia, unspecified organism (principal); C90.01 Multiple myeloma in remission; N39.0 Urinary tract infection, site not specified; I10 Essential (primary) hypertension; E03.9 Hypothyroidism, unspecified; K21.9 Gastro-esophageal reflux disease without esophagitis; F17.210 Nicotine dependence, cigarettes, uncomplicated; Z79.890 Hormone replacement therapy; Z79.899 Other long term (current) drug therapy; Z92.21 Personal history of antineoplastic chemotherapy
CPT/HCPCS: 71045; 80053; 81001; 83605; 84484; 85025; 87040; 87077; 87086; 87088; 87186; 87428; 93005; 96360; 96361; 99285; A4216

== ENCOUNTER 2021-08-01 11:21 | Emergency (ER) | payer MEDICARE, OTHER, SELFPAY ==
[2021-08-01 11:25] VITALS: BP 93/65; PULSE 96; RESP 15; TEMP 36.2; O2SAT 96
[2021-08-01 11:27] VITALS: BP 93/65; PULSE 96; RESP 15; TEMP 36.2; O2SAT 96
--- NOTE | 2021-08-01 11:39 | EX.ED.DYSGE1 ---
HPI History of Present Illness Chief Complaint: Diarrhea Informant: patient and spouse/S.O. Onset/Context/Timing Onset: Today Context: Sudden Onset Timing: Continuous Quality: Watery Location: Diarrhea Worsened by: Nothing Relieved by: Nothing Narrative Narrative: Patient presents with diarrhea that began today. Patient states she was seen here yesterday and diagnosed with pneumonia and urinary tract infection. Patient was prescribed antibiotics. Patient states she took a dose last night at 9 PM and started with diarrhea approximately 3 hours after that. Patient states her diarrhea is watery. Patient denies any melena or hematochezia. Patient denies any abdominal pain. Patient denies any nausea or vomiting. Patient denies any recent fevers or chills. [facility] Medical History GERD (gastroesophageal reflux disease) HTN (hypertension) Hypothyroid Multiple myeloma Home Medications Centrum Silver Women 1 ea PO DAILY 08/16/17 [History Last Taken 03/07/21] acyclovir 400 mg PO BID 08/16/17 [History Last Taken 03/07/21] omeprazole 20 mg PO BID 08/16/17 [History Last Taken 03/07/21] bupropion HCl 100 mg PO BID 03/07/21 [History Last Taken 03/07/21] citalopram 20 mg PO DAILY 03/07/21 [History Last Taken 03/07/21] diphenoxylate-atropine 1 tab PO 4X/DAY PRN 03/07/21 [History Last Taken Unknown] levothyroxine [Synthroid] 125 mcg PO DAILY 03/07/21 [History Last Taken Unknown] lisinopril 20 mg PO DAILY 03/07/21 [History Last Taken 03/07/21] meclizine 25 mg PO BID PRN 03/07/21 [History Last Taken Unknown] metoprolol succinate 25 mg PO DAILY 03/07/21 [History Last Taken 03/07/21] trazodone 50 mg PO QHS 03/07/21 [History Last Taken 03/06/21] ipratropium-albuterol [Combivent Respimat] 1 puff INHALATION Q4H 30 Days #4 g 03/09/21 [Rx Last Taken Unknown] levofloxacin 500 mg PO DAILY #7 tab 07/31/21 [Rx Last Taken Unknown] Allergy/AdvReac Type Severity Reaction Status Date / Time No Known Allergies Allergy Verified 07/31/21 17:07 Social History Smoking Status: Current every day smoker tobacco type: cigarettes and e-cigarettes ROS ROS ED Constitutional Constitutional ED: Denies chills or fever(s) Eyes Eyes: Denies blurry vision or change in vision ENT ENT ED: Denies rhinorrhea or sore throat Cardiovascular Cardiovascular: Denies chest pain or palpitations Respiratory/Chest Respiratory/Chest: Reports cough; Denies dyspnea Gastrointestinal Gastrointestinal: Reports diarrhea; Denies melena, nausea or vomiting Genitourinary Genitourinary ED: Denies dysuria or hematuria Musculoskeletal Musculoskeletal: Denies back pain or neck pain Integumentary Denies abscess or rash Neurologic Neurologic: Denies headache(s) or weakness Allergic/Immunologic Allergic/Immunologic ED: Denies mouth swelling or urticaria EXAM Physical Exam Const Vital Signs: 08/01/21 11:25 08/01/21 11:27 08/01/21 12:49 Temperature 97.2 F L 97.2 F L 97.8 F Temperature Source Temporal Temporal Temporal Pulse Rate 96 96 80 Respiratory Rate 15 15 16 Blood Pressure 93/65 93/65 92/55 L Blood Pressure Mean 74 74 67 Pulse Ox 96 96 96 Oxygen Delivery Method Room Air Room Air Room Air Positive well nourished and well developed General Appearance ED: well developed HEENT Reports moist mucous membranes Neck supple and no JVD Resp normal respiratory effort and clear to auscultation bilaterally Cardio regular rate, regular rhythm and no murmurs GI normal to inspection, nondistended, normoactive bowel sounds and non-tender Palpation: soft Extremity normal to inspection General Extremety ED: Negative for edema or tenderness General Extremity: Negative for edema Neuro oriented x3, CN's II-XII intact bilaterally and no sensory deficits noted Sensorium / Orientation: alert Motor Exam: strength 5/5 throughout Psych mental status grossly normal Skin no rashes or lesions noted MDM MDM MDM Narrative Medical decision making narrative: CBC shows a leukocytosis of 24.0. This is increased slightly from yesterday. Comprehensive metabolic profile was essentially within normal limits. Patient was given IV fluids. Patient was unable to provide a stool specimen for C. difficile testing. Patient feels better on reevaluation. Patient wants to go home. Patient was instructed to drink p.o. fluids. Patient was instructed return if worse in any way. Patient and understood and were agreeable with the plan. All questions were answered. Lab Data Attestation: I reviewed the patient's lab results. Labs: Laboratory Results - last 24 hr 08/01/21 08/01/21 11:51 11:51 WBC 24.0 H RBC 4.08 L Hgb 12.3 Hct 37.0 MCV 90.7 MCH 30.1 MCHC 33.2 RDW Std Deviation 42.2 RDW Coeff of Willie 12.8 Plt Count 281 MPV 9.9 Immature Gran % (Auto) 0.500 Neut % (Auto) 83.1 H Lymph % (Auto) 10.6 L [place] % (Auto) 5.5 Eos % (Auto) 0.1 Baso % (Auto) 0.2 Absolute Neuts (auto) 20.0 H Absolute Lymphs (auto) 2.55 Nucleated RBC % 0 Sodium 137 Potassium 3.6 Chloride 101 Carbon Dioxide 27.0 Anion Gap 9 BUN 14 Creatinine 0.76 Estim Creat Clear Calc 43.70 Est GFR (MDRD) Af Amer 96 Est GFR (MDRD) Non-Af 79 BUN/Creatinine Ratio 18.4 Glucose 123 H Calcium 9.3 Total Bilirubin 0.60 AST 21 ALT 24 Alkaline Phosphatase 114 Total Protein 7.1 Albumin 3.1 L Globulin 4.0 Albumin/Globulin Ratio 0.8 L Discharge Plan Triage Chief Complaint: Diarrhea ED Provider: Gustavo Romero Dx/Rx/DC Orders Clinical Impression: Diarrhea, Pneumonia involving right lung, Acute UTI, Leukocytosis Instructions: ED Diarrhea, Unknown Cause Prescriptions: No Action acyclovir 400 MG tablet 400 mg PO BID RF: 0 omeprazole 20 MG capsule 20 mg PO BID RF: 0 Centrum Silver Women 1 EACH tablet 1 ea PO DAILY RF: 0 trazodone 50 mg tablet 50 mg PO QHS RF: 0 lisinopril 20 mg tablet 20 mg PO DAILY RF: 0 diphenoxylate-atropine 2.5-0.025 mg tablet 1 tab PO 4X/DAY PRN (Reason: STOOL) RF: 0 bupropion HCl 100 mg tablet 100 mg PO BID RF: 0 citalopram 20 mg tablet 20 mg PO DAILY RF: 0 meclizine 25 mg tablet 25 mg PO BID PRN (Reason: Dizziness) RF: 0 levothyroxine [Synthroid] 125 mcg tablet 125 mcg PO DAILY RF: 0 metoprolol succinate 25 mg tablet extended release 24 hr 25 mg PO DAILY RF: 0 Combivent Respimat 20-100 mcg/actuation mist 1 puff inhalation Q4H 30 Days Qty: 4 RF: 0 levofloxacin [levofloxacin] 500 MG tablet 500 mg PO DAILY Qty: 7 RF: 0 Primary Care Provider: Addi Elizabeth Referrals: Addi Elizabeth MD [Primary Care Provider] - 3-5 Days Disposition Disposition: Home, Self Care
[2021-08-01 12:00] LABS: Absolute Lymphocyte Count 2.55 X10^3/uL (0.83-4.51); Basophil# 0.04 X10^3/uL; Basophil% 0.2 % (0-1); Eosinophil# 0.02 X10^3/uL; Eosinophils% 0.1 % (0-5); Hemoglobin 12.3 g/dL (12.0-15.0); Lymphocyte # 2.55 X10^3/ul (0.83-4.51); Lymphocyte % 10.6 % (19-41); Mean Corp Hgb Conc 33.2 g/dL (32-36); Mean Corpuscular Hgb 30.1 pg (27.0-32.0); Mean Corpuscular Volume 90.7 fL (81-99); Mean Platelet Vol. 9.9 fl (6.2-12.0); Monocyte# 1.31 X10^3/uL; Monocyte% 5.5 % (0-10); NRBC Flagged by Analyzer 0 % (0-5); Neutrophil # 19.96 X10^3/uL (2.7-7.7); Neutrophil % 83.1 % (47-70); Platelet Count 281 K/mm3 (150-450); RBC Distribution Width CV 12.8 % (11.6-14.6); RBC Distribution Width SD 42.2 fl (35.1-43.9); Red Blood Count 4.08 M/mm3 (4.2-5.4)
[2021-08-01 12:15] LABS: ALB/GLOB Ratio 0.8 RATIO (0.9-2.4); AST(SGOT) 21 U/L (15-37); Alanine Aminotransfer ALT/SGPT 24 U/L (13-56); Albumin, Serum 3.1 g/dL (3.2-5.0); Alkaline Phosphatase 114 U/L (45-117); Anion Gap 9 (5-15); BUN 14 mg/dL (7-18); BUN/Creat Ratio 18.4 RATIO (10-20); Calcium,Total 9.3 mg/dL (8.5-10.1); Chloride 101 mmol/L (98-107); Creatinine, Serum 0.76 mg/dL (0.55-1.02); EST Glomerular Filtration Rate 79 mL/min (>60); Est Glom Filt Rate - Afr Amer 96 mL/min (>60); Glucose 123 mg/dL (74-106); Potassium 3.6 mmol/L (3.5-5.1); Protein, Total 7.1 g/dL (6.4-8.2); Sodium Level 137 mmol/L (136-145)
[2021-08-01 12:49] VITALS: BP 92/55; PULSE 80; RESP 16; TEMP 36.6; O2SAT 96
[2021-08-01 13:26] VITALS: BP 108/67
== END 2021-08-01 13:30 | disposition home or self-care (01) ==
PROVIDERS: Emergency Provider Emergency Medicine; PCP Family Medicine; Visit Provider Emergency Medicine
DX: R19.7 Diarrhea, unspecified (principal); C90.01 Multiple myeloma in remission; J18.9 Pneumonia, unspecified organism; N39.0 Urinary tract infection, site not specified; I10 Essential (primary) hypertension; E03.9 Hypothyroidism, unspecified; F17.210 Nicotine dependence, cigarettes, uncomplicated
CPT/HCPCS: 80053; 85025; 99283; A4216

== ENCOUNTER 2021-09-11 11:08 | Inpatient (IN) | payer MEDICARE, OTHER, SELFPAY ==
[2021-09-11] VITALS (7 sets, daily range): BP systolic 87–117; BP diastolic 47–56; PULSE 58–100; RESP 14–18; TEMP 36.2–37.3; O2SAT 92–97; BMI 21.9; BMI 19.2
--- NOTE | 2021-09-11 11:32 | EKG12_ITS ---
Test Reason : ABNL PAIN Blood Pressure : / mmHG Vent. Rate : 057 BPM Atrial Rate : 057 BPM P-R Int : 156 ms QRS Dur : 076 ms QT Int : 434 ms P-R-T Axes : 066 -20 066 degrees QTc Int : 422 ms Sinus bradycardia Otherwise normal ECG Confirmed by DAPHNEY BROWN, PRATEEK ([id number]), script editor SARAH LEDESMA ([id number]) on 09/12/2021 11:19:34 A M Referred By: CHRISTINE Confirmed By:DOC SHELLEY MD
--- NOTE | 2021-09-11 11:33 | EX.ED.DYSGE1 ---
HPI History of Present Illness Chief Complaint: Diarrhea Informant: patient and spouse/S.O. Onset/Context/Timing Onset: Weeks (3 weeks) Current Severity: Moderate Maximum Severity: Moderate Narrative Narrative: Patient presents with 3-week history of diarrhea. She has been taking yogurt, probiotics, Imodium without improvement. She reports approximately 10 episodes a day. She denies blood in the stool. She was recently on antibiotics for pneumonia and UTI. She denies history of C. difficile. Today she presents because her blood pressure was low when she was feeling dizzy. said he held her blood pressure medicine this morning because of her low blood pressure. [facility] Medical History GERD (gastroesophageal reflux disease) HTN (hypertension) Hypothyroid Multiple myeloma Home Medications acyclovir 400 mg tablet 400 mg PO BID 08/16/17 [History Last Taken 03/07/21] multivit with [id number]-lutein 8 mg iron-400 mcg-300 mcg tablet (Centrum Silver Women) 1 ea PO DAILY 08/16/17 [History Last Taken 03/07/21] omeprazole 20 mg capsule,delayed release 20 mg PO BID 08/16/17 [History Last Taken 03/07/21] bupropion HCl 100 mg tablet 100 mg PO BID 03/07/21 [History Last Taken 03/07/21] citalopram 20 mg tablet 20 mg PO DAILY DEPRESSION 03/07/21 [History Last Taken 03/07/21] diphenoxylate-atropine 2.5 mg-0.025 mg tablet 1 tab PO 4X/DAY PRN STOOL 03/07/21 [History Last Taken Unknown] levothyroxine 125 mcg tablet (Synthroid) 125 mcg PO DAILY THYROID 03/07/21 [History Last Taken Unknown] lisinopril 20 mg tablet 20 mg PO DAILY BP 03/07/21 [History Last Taken 03/07/21] meclizine 25 mg tablet 25 mg PO BID PRN Dizziness 03/07/21 [History Last Taken Unknown] metoprolol succinate 25 mg tablet,extended release 24 hr 25 mg PO DAILY HEART 03/07/21 [History Last Taken 03/07/21] trazodone 50 mg tablet 50 mg PO QHS SLEEP 03/07/21 [History Last Taken 03/06/21] ipratropium 20 mcg-albuterol 100 mcg/actuation mist for inhalation (Combivent Respimat) 1 puff inhalation Q4H 30 days #4 grams 03/09/21 [Rx Last Taken Unknown] levofloxacin 500 mg tablet 500 mg PO DAILY #7 tabs 07/31/21 [Rx Last Taken Unknown] Allergy/AdvReac Type Severity Reaction Status Date / Time No Known Allergies Allergy Verified 09/11/21 11:08 Social History Smoking Status: Current every day smoker tobacco type: cigarettes and e-cigarettes ROS ROS ED Constitutional Constitutional ED: Denies chills or fever(s) Eyes Eyes: Denies change in vision or discharge from eye(s) ENT ENT ED: Denies discharge from eye(s), rhinorrhea or sore throat Cardiovascular Cardiovascular: Denies chest pain or palpitations Respiratory/Chest Respiratory/Chest: Denies cough or dyspnea Gastrointestinal Gastrointestinal: Reports diarrhea; Denies abdominal pain, nausea or vomiting Genitourinary Genitourinary ED: Denies difficulty urinating or dysuria Musculoskeletal Musculoskeletal: Denies back pain or extremity pain Integumentary Denies Abrasions or rash Neurologic Neurologic: Reports weakness; Denies headache(s) Allergic/Immunologic Allergic/Immunologic ED: Denies lip swelling or urticaria EXAM Physical Exam Const Vital Signs: 09/11/21 11:09 09/11/21 13:32 Temperature 97.2 F L 97.4 F L Temperature Source Temporal Temporal Pulse Rate 70 68 Respiratory Rate 16 14 Blood Pressure 87/55 L 102/48 L Blood Pressure Mean 65 66 Pulse Ox 97 94 Oxygen Delivery Method Room Air Room Air Positive well nourished and well developed General Appearance ED: well developed HEENT Reports normocephalic, head/scalp atraumatic and dry mucous membranes Mouth ED: Yes dry mucous membranes Mouth: dry mucous membranes Eyes PERRL and EOMs intact bilaterally Neck supple Chest Wall inspection of chest normal and palpation of chest normal Resp normal respiratory effort and clear to auscultation bilaterally Cardio regular rate and regular rhythm GI non-tender Auscultation: hypoactive bowel sounds Palpation: soft Extremity normal to inspection Neuro oriented x3 and no sensory deficits noted Sensorium / Orientation: alert Motor Exam: strength 5/5 throughout Psych mental status grossly normal Psych Narrative: Flat affect. Skin no rashes or lesions noted MDM MDM MDM Narrative Medical decision making narrative: Patient placed on cardiac surgeon. EKG obtained. IV fluids ordered along with lab work. Urinalysis and stool studies ordered. Lab Data Attestation: I reviewed the patient's lab results. Labs: Laboratory Results - last 24 hr 09/11/21 09/11/21 12:00 12:00 WBC 17.1 H RBC 4.44 Hgb 13.2 Hct 40.4 MCV 91.0 MCH 29.7 MCHC 32.7 RDW Std Deviation 46.6 H RDW Coeff of Willie 13.9 Plt Count 313 MPV 11.4 Immature Gran % (Auto) 0.600 Neut % (Auto) 69.9 Lymph % (Auto) 14.6 L [place] % (Auto) 7.9 Eos % (Auto) 6.6 H Baso % (Auto) 0.4 Absolute Neuts (auto) 11.9 H Absolute Lymphs (auto) 2.49 Nucleated RBC % 0 Sodium 136 Potassium 4.4 Chloride 104 Carbon Dioxide 22.0 Anion Gap 10 BUN 61 H Creatinine 2.68 H Estim Creat Clear Calc 15.01 Est GFR (MDRD) Af Amer 22 L Est GFR (MDRD) Non-Af 19 L BUN/Creatinine Ratio 22.8 H Glucose 99 Calcium 10.0 Total Bilirubin 0.40 Direct Bilirubin 0.09 AST 16 ALT 24 Alkaline Phosphatase 91 Total Protein 7.2 Albumin 3.4 Globulin 3.8 Treatment and Re-Evaluation Narrative: Patient's white count is elevated at 17.1 with normal differential, improved from prior value of 24. Chemistry studies significant for a BUN of 61 and a creatinine of 2.68. It appears her baseline creatinine is around 0.7. Patient has not been able to provide a stool sample here. Urinalysis is still pending at this time. Blood pressure is improved to 100?110 systolic. I will speak with hospitalist regarding admission. Discharge Plan Triage Chief Complaint: Diarrhea ED Provider: Meghan Kovacs Dx/Rx/DC Orders Clinical Impression: Diarrhea, Acute renal failure Prescriptions: No Action acyclovir 400 MG tablet 400 mg PO BID omeprazole 20 MG capsule 20 mg PO BID Centrum Silver Women 1 EACH tablet 1 ea PO DAILY trazodone 50 mg tablet 50 mg PO QHS lisinopril 20 mg tablet 20 mg PO DAILY diphenoxylate-atropine 2.5-0.025 mg tablet 1 tab PO 4X/DAY PRN (Reason: STOOL) bupropion HCl 100 mg tablet 100 mg PO BID citalopram 20 mg tablet 20 mg PO DAILY meclizine 25 mg tablet 25 mg PO BID PRN (Reason: Dizziness) Label Comments: take 1 tablet by mouth twice a day for dizziness levothyroxine [Synthroid] 125 mcg tablet 125 mcg PO DAILY metoprolol succinate 25 mg tablet extended release 24 hr 25 mg PO DAILY Combivent Respimat 20-100 mcg/actuation mist 1 puff inhalation Q4H 30 Days Qty: 4 0RF levofloxacin [levofloxacin] 500 MG tablet 500 mg PO DAILY Qty: 7 0RF Primary Care Provider: Addi Elizabeth Referrals: Addi Elizabeth MD [Primary Care Provider] - Disposition Disposition: Acute Care Hospital [facility]
[2021-09-11] MEDS: 0.9% Normal Saline 1,000 ML 1000 ML IV (12:01)
[2021-09-11 12:33] LABS: AST(SGOT) 16 U/L (15-37); Alanine Aminotransfer ALT/SGPT 24 U/L (13-56); Albumin, Serum 3.4 g/dL (3.2-5.0); Alkaline Phosphatase 91 U/L (45-117); Anion Gap 10 (5-15); BUN 61 mg/dL (7-18); BUN/Creat Ratio 22.8 RATIO (10-20); Bilirubin, Direct 0.09 mg/dL (0.00-0.30); Chloride 104 mmol/L (98-107); Creatinine, Serum 2.68 mg/dL (0.55-1.02); EST Glomerular Filtration Rate 19 mL/min (>60); Est Glom Filt Rate - Afr Amer 22 mL/min (>60); Estimated Creatinine Clearance 15.01 ml/min; Globulin 3.8 g/dL (2.2-4.2); Glucose 99 mg/dL (74-106); Potassium 4.4 mmol/L (3.5-5.1); Protein, Total 7.2 g/dL (6.4-8.2); Sodium Level 136 mmol/L (136-145)
[2021-09-11 12:45] LABS: Absolute Lymphocyte Count 2.49 X10^3/uL (0.83-4.51); Absolute Neutrophil Count 11.9 X10^3/uL (2.0-7.7); Basophil# 0.07 X10^3/uL; Basophil% 0.4 % (0-1); Eosinophil# 1.13 X10^3/uL; Eosinophils% 6.6 % (0-5); Hematocrit 40.4 % (37-47); Hemoglobin 13.2 g/dL (12.0-15.0); Lymphocyte # 2.49 X10^3/ul (0.83-4.51); Lymphocyte % 14.6 % (19-41); Mean Corp Hgb Conc 32.7 g/dL (32-36); Mean Corpuscular Hgb 29.7 pg (27.0-32.0); Mean Platelet Vol. 11.4 fl (6.2-12.0); Monocyte# 1.34 X10^3/uL; Monocyte% 7.9 % (0-10); NRBC Flagged by Analyzer 0 % (0-5); Neutrophil # 11.92 X10^3/uL (2.7-7.7); Neutrophil % 69.9 % (47-70); Platelet Count 313 K/mm3 (150-450); RBC Distribution Width CV 13.9 % (11.6-14.6); RBC Distribution Width SD 46.6 fl (35.1-43.9); Red Blood Count 4.44 M/mm3 (4.2-5.4); White Blood Count 17.1 K/mm3 (4.4-11.0)
[2021-09-11] MEDS: 0.9% Normal Saline 1,000 ML 150 ML IV (13:36)
[2021-09-11 13:43] LABS: Color, Urine Yellow (Yellow); Glucose, Dipstick Normal (Normal); Ketone-Dipstick 5 mg/dl (Negative); Leukocyte Esterase-Dipstick 25 /ul (Negative); Nitrite-Dipstick Negative (Negative); Occult Blood-Urine 10 /ul (Negative); Protein-Dipstick 30 mg/dl (Negative); Specific Gravity, Urine 1.025 (1.002-1.030); Urine Clarity Clear (Clear); Urine Urobilinogen Normal (Normal)
[2021-09-11 13:44] LABS: Urine Bilirubin Dipstick 1 mg/dL (Negative)
--- NOTE | 2021-09-11 13:51 | PCM.HP.STD ---
HPI - General General Date of Admission: 09/11/21 Date of Service: 09/11/21 Chief Complaint: Diarrhea for 3 weeks. HPI Narrative RICHARD BERRY, is a 70 F with history of irritable bowel syndrome, diarrhea predominant on Viberzi came to ED for ongoing diarrhea severe 10 episodes, watery in consistency, yellow to lua in color for 4 weeks. Prior to that patient came to ED on 07/31 for fever on and off for 2 to 3 days with ongoing cough for a month. She history of multiple myeloma in remission for 10 to 12 years. At that time she was given Levaquin 500 mg for [address] in ED after 2 days on 08/01 for diarrhea with no abdominal pain and was told to complete the antibiotic course with probiotic but she took for only few days, did not complete 7 days. Since then she is having diarrhea. Patient also has intermittent on and off abdominal pain/cramps predominantly in lower quadrants, 3-5/10 in intensity. No radiation. Denies hematemesis, hematochezia or melena. She had colonoscopy about 10 years ago in [place] and was normal as per the patient. Never had EGD. No fever or chills. Patient denies burning micturition, increased frequency or urgency. She states her urine output is slightly less than normal. She was dizzy and lightheaded on standing when she came to ER was found hypotensive, BP 87/55, heart rate 70/min and BP responded with IV fluid, last 102/48. Was found to have REX, near syncope due to hypotension and therefore admitted. [facility] Medical History GERD (gastroesophageal reflux disease) HTN (hypertension) Hypothyroid Multiple myeloma Home Medications acyclovir 400 mg tablet 400 mg PO BID 08/16/17 [History Last Taken 09/11/21] multivit with mwymnubz-auqu-DO-lutein 8 mg iron-400 mcg-300 mcg tablet (Centrum Silver Women) 1 ea PO DAILY 08/16/17 [History Last Taken 09/11/21] omeprazole 20 mg capsule,delayed release 20 mg PO BID 08/16/17 [History Last Taken 09/11/21] diphenoxylate-atropine 2.5 mg-0.025 mg tablet 1 tab PO 4X/DAY PRN STOOL 03/07/21 [History Last Taken 09/11/21] levothyroxine 125 mcg tablet (Synthroid) 125 mcg PO DAILY THYROID 03/07/21 [History Last Taken 09/11/21] lisinopril 20 mg tablet 20 mg PO DAILY BP 03/07/21 [History Last Taken 09/10/21] meclizine 25 mg tablet 25 mg PO BID PRN Dizziness 03/07/21 [History Last Taken 09/11/21] metoprolol succinate 25 mg tablet,extended release 24 hr 25 mg PO DAILY HEART 03/07/21 [History Last Taken 09/11/21] trazodone 50 mg tablet 50 mg PO QHS SLEEP 03/07/21 [History Last Taken 09/10/21] diclofenac sodium 75 mg tablet,delayed release 75 mg PO BID PAIN 09/11/21 [History Last Taken 09/11/21] donepezil 10 mg tablet 10 mg PO DAILY MEMORY 09/11/21 [History Last Taken 09/11/21] duloxetine 60 mg capsule,delayed release 60 mg PO DAILY MOOD 09/11/21 [History Last Taken 09/11/21] oxybutynin chloride 5 mg tablet 5 mg PO BID BLADDER 09/11/21 [History Last Taken 09/11/21] Allergy/AdvReac Type Severity Reaction Status Date / Time No Known Allergies Allergy Verified 09/11/21 11:08 Social History Smoking Status: Current every day smoker tobacco type: cigarettes and e-cigarettes ROS ROS Narrative 14 ROS slightly limited because of hearing loss. Patient wears hearing aid Constitutional: Reports fatigue and weakness. Dizziness and lightheadedness HEENT: Hard of hearing. Hard of understanding. Reports systems reviewed and no addt'l complaints, except as documented Respiratory/Chest: Denies chest pain, shortness of breath at rest or with exertion Gastrointestinal: Lower quadrants abdominal cramps on and off intermittently. Denies coffee ground emesis, hematemesis or vomiting Genitourinary: Denies burning urination. Admission HPI Neurologic: Denies seizure-like activity skin: No ulcer. No rash Endocrinology: Reports systems reviewed and no addt'l complaints, except as documented Hematologic/Lymphatic: Multiple myeloma. In remission. No history of hypercoagulable disorder. Reports systems reviewed and no addt'l complaints, except as documented Rest 14 ROS are negative except as mentioned in HPI Vital Signs Vital Signs Vital Signs: 09/11/21 11:09 09/11/21 13:32 Temperature 97.2 F L 97.4 F L Temperature Source Temporal Temporal Pulse Rate 70 68 Respiratory Rate 16 14 Blood Pressure 87/55 L 102/48 L Blood Pressure Mean 65 66 Pulse Ox 97 94 Oxygen Delivery Method Room Air Room Air Weight Weight: 120 lb Body Mass Index (BMI) 21.9 Physical Exam Narrative Physical exam General: Alert, Oriented x3, Cooperative HEENT: Uses hearing aid, bilateral hearing loss, right more than left. Atraumatic, PERRLA, EOMI, Normocephalic Oral: Oral mucosa dry. No Gingival or Mucosal Lesions/ Ulcerations Neck: Supple, No JVD, Negative Carotid Bruits Lungs: Air entry equal in bilateral lung bases. No crepitation/rhonchi Cardiovascular: Regular rate, Regular Rhythm, Normal S1, Normal S2, No murmurs Abdomen: Bowel Sounds Present, Soft, Non Tender, Non-Distended. No palpable lump : No renal angle tenderness. No suprapubic tenderness. Extremities: No edema, Capillary Refill Less than 3 Seconds Skin: No rashes, No breakdown Musculoskeletal: No Tenderness to Palpation of Joints or Extremities Neurological: Cranial nerves II-XII grossly intact, DTR 2+/4 and Symmetrical, Neuro grossly intact Psych/Mental Status: Normal Affect, Appropriate. Results Lab / Micro Data Result Diagrams: 09/11/21 12:00 09/11/21 12:00 Labs: Laboratory Results - last 24 hr 09/11/21 12:00: WBC 17.1 H, RBC 4.44, Hgb 13.2, Hct 40.4, MCV 91.0, MCH 29.7, MCHC 32.7, RDW Std Deviation 46.6 H, RDW Coeff of Willie 13.9, Plt Count 313, MPV 11.4, Immature Gran % (Auto) 0.600, Neut % (Auto) 69.9, Lymph % (Auto) 14.6 L, [place] % (Auto) 7.9, Eos % (Auto) 6.6 H, Baso % (Auto) 0.4, Absolute Neuts (auto) 11.9 H, Absolute Lymphs (auto) 2.49, Nucleated RBC % 0 06/29/22 12:00: Sodium 136, Potassium 4.4, Chloride 104, Carbon Dioxide 22.0, Anion Gap 10, BUN 61 H, Creatinine 2.68 H, Estim Creat Clear Calc 15.01, Est GFR (MDRD) Af Amer 22 L, Est GFR (MDRD) Non-Af 19 L, BUN/Creatinine Ratio 22.8 H, Glucose 99, Calcium 10.0, Total Bilirubin 0.40, Direct Bilirubin 0.09, AST 16, ALT 24, Alkaline Phosphatase 91, Total Protein 7.2, Albumin 3.4, Globulin 3.8 09/11/21 13:10: Urine Color Yellow, Urine Clarity Clear, Urine pH 5.0, Ur Specific [place] 1.025, Urine Protein 30 H, Urine Glucose (UA) Normal, Urine Ketones 5 H, Urine Occult Blood 10 H, Urine Nitrite Negative, Urine Bilirubin 1 H, Urine Urobilinogen Normal, Ur Leukocyte Esterase 25 H Assessment & Plan Assessment/Plan (1) Acute renal failure: (2) Diarrhea: PLAN: Plan This is a 70-year-old female came to ER for chronic diarrhea ongoing for about 1 month along with abdominal cramps. 1. Chronic diarrhea, exact etiology unclear unclear possible differential antibiotic associated diarrhea, rule out C. difficile: Patient is being admitted on MedSur. IV fluid resuscitation. Stool for C. difficile, enteric bacterial panel, ova parasite, lactoferrin and occult blood ordered. Monitor intake and output. WBC count is elevated 17.1 thousand, improving, prior labs showed 24,000. 2. Acute kidney injury on baseline CKD stage III, mainly prerenal: BUN/creatinine 61/2.68. Baseline creatinine is 0.7 with estimated creatinine clearance 45 mill per minute suggestive CKD stage IIIa. Calcium 10.0, high normal, baseline calcium 8.8-9.3. IV fluid Ringer lactate ordered. Monitor intake and output. Monitor electrolytes and kidney function. Serum phosphorus and magnesium ordered, pending. UA shows LE 25, WBC 5?10 cells. Bacteria 2+. Patient does not have burning micturition, therefore asymptomatic bacteria. 3. Hypertension: Blood pressure on lower side. Hold antihypertensive medication. 4. Hypothyroidism, continue on synthroid History of multiple myeloma in remission: Patient not on chemotherapy for last 10 to 12 years, in remission. DVT prophylaxis: Heparin 5000 unit subcutaneous every 12 hourly. Bilateral SCDs. Discontinue if platelet count drops less than 50,000 or hemoglobin less than 8 g% Living will/advanced directive/end of life care: Patient does have living will or advanced directive. Her is power of sand molder for health. After discussion of benefits/risks procedures involved with full code, DNR CC arrest and DNR CC, the patient and her opted for DNRCC arrest with no intubation Patient doesn't want artificial life support including intubation, tube feed, ventilator and/chest compression, central venous catheter, vasopressor and DC shock if needed Total time spent in ehor-dm-lils encounter in discussion of advanced directive 16 minutes. Laboratory Results 09/11/21 12:00: WBC 17.1 H, RBC 4.44, Hgb 13.2, Hct 40.4, MCV 91.0, MCH 29.7, MCHC 32.7, RDW Std Deviation 46.6 H, RDW Coeff of Willie 13.9, Plt Count 313, MPV 11.4, Immature Gran % (Auto) 0.600, Neut % (Auto) 69.9, Lymph % (Auto) 14.6 L, [place] % (Auto) 7.9, Eos % (Auto) 6.6 H, Baso % (Auto) 0.4, Absolute Neuts (auto) 11.9 H, Absolute Lymphs (auto) 2.49, Nucleated RBC % 0 09/11/21 12:00: Sodium 136, Potassium 4.4, Chloride 104, Carbon Dioxide 22.0, Anion Gap 10, BUN 61 H, Creatinine 2.68 H, Estim Creat Clear Calc 15.01, Est GFR (MDRD) Af Amer 22 L, Est GFR (MDRD) Non-Af 19 L, BUN/Creatinine Ratio 22.8 H, Glucose 99, Calcium 10.0, Total Bilirubin 0.40, Direct Bilirubin 0.09, AST 16, ALT 24, Alkaline Phosphatase 91, Total Protein 7.2, Albumin 3.4, Globulin 3.8 09/11/21 12:00: Phosphorus Pending, Magnesium Pending 09/11/21 13:10: Urine Color Yellow, Urine Clarity Clear, Urine pH 5.0, Ur Specific [place] 1.025, Urine Protein 30 H, Urine Glucose (UA) Normal, Urine Ketones 5 H, Urine Occult Blood 10 H, Urine Nitrite Negative, Urine Bilirubin 1 H, Urine Urobilinogen Normal, Ur Leukocyte Esterase 25 H, Urine RBC Not Reportable, Urine WBC 5-10 SEEN, Ur Squamous Epith Cells 0-5 SEEN, Urine Bacteria 2+, Urine Mucus 2+ Charges/Coding Visit Charges Inpatient E&M: 48992 Init Hosp L3 Procedures Hospitalists Procedures: 79332 Advncd Care Plan 30 Min
[2021-09-11 13:55] LABS: Squamous Epithelial Cells - UA 0-5 SEEN /hpf (5-10); White Blood Cells 5-10 SEEN /hpf (0-5)
[2021-09-11 13:56] LABS: Bacteria 2+ /hpf (None Seen); Mucous, Urine 2+ /hpf (<or=2+)
[2021-09-11 14:58] LABS: Magnesium 1.9 mg/dL (1.6-2.6); Phosphorus 7.5 mg/dL (2.5-4.9)
[2021-09-11] MEDS: Lactated Ringers 1,000 ML 150 ML IV (16:30)
[2021-09-11] MEDS: traZODone 50 MG Tablet PO (22:50)
[2021-09-11] MEDS: Heparin Injection (Vial) 5,000 UNIT/ML VIAL 5000 UNIT SC (22:50)
[2021-09-11] MEDS: Oxybutynin 5 MG Tablet PO (22:50)
[2021-09-12 00:56] VITALS: BP 99/51; PULSE 99; RESP 20; TEMP 37.6; O2SAT 95
[2021-09-12] MEDS: Lactated Ringers 1,000 ML 150 ML IV (01:27)
[2021-09-12 05:30] LABS: Absolute Lymphocyte Count 2.79 X10^3/uL (0.83-4.51); Absolute Neutrophil Count 6.9 X10^3/uL (2.0-7.7); Basophil# 0.06 X10^3/uL; Basophil% 0.5 % (0-1); Eosinophil# 0.84 X10^3/uL; Eosinophils% 7.3 % (0-5); Hematocrit 33.9 % (37-47); Hemoglobin 11.2 g/dL (12.0-15.0); Lymphocyte # 2.79 X10^3/ul (0.83-4.51); Lymphocyte % 24.3 % (19-41); Mean Corpuscular Hgb 29.9 pg (27.0-32.0); Mean Corpuscular Volume 90.4 fL (81-99); Mean Platelet Vol. 10.7 fl (6.2-12.0); Monocyte# 0.81 X10^3/uL; Monocyte% 7.1 % (0-10); NRBC Flagged by Analyzer 0 % (0-5); Neutrophil # 6.92 X10^3/uL (2.7-7.7); Neutrophil % 60.4 % (47-70); Platelet Count 256 K/mm3 (150-450); RBC Distribution Width CV 13.7 % (11.6-14.6); RBC Distribution Width SD 45.6 fl (35.1-43.9); Red Blood Count 3.75 M/mm3 (4.2-5.4); White Blood Count 11.5 K/mm3 (4.4-11.0)
[2021-09-12 06:12] LABS: Anion Gap 6 (5-15); BUN 38 mg/dL (7-18); BUN/Creat Ratio 41.7 RATIO (10-20); Calcium,Total 9.1 mg/dL (8.5-10.1); Chloride 111 mmol/L (98-107); Creatinine, Serum 0.91 mg/dL (0.55-1.02); EST Glomerular Filtration Rate 64 mL/min (>60); Est Glom Filt Rate - Afr Amer 78 mL/min (>60); Estimated Creatinine Clearance 46.93 ml/min; Glucose 95 mg/dL (74-106); Sodium Level 139 mmol/L (136-145); T4 Free Direct 1.08 ng/dL (0.76-1.46); Thyroid Stim Hormone (TSH) 2.63 uIU/mL (0.358-3.74)
[2021-09-12 06:51] VITALS: BP 98/46; PULSE 89; RESP 18; TEMP 36.9; O2SAT 95
[2021-09-12] MEDS: Levothyroxine 125 MCG Tablet PO (06:53)
[2021-09-12] MEDS: DULoxetine Hcl 60 MG Capsule PO (09:45)
[2021-09-12] MEDS: Pantoprazole Sodium 40 MG Tablet PO (09:45)
[2021-09-12] MEDS: Oxybutynin 5 MG Tablet PO (09:45)
[2021-09-12] MEDS: Donepezil HCl 10 MG Tablet PO (09:45)
[2021-09-12] MEDS: Heparin Injection (Vial) 5,000 UNIT/ML VIAL 5000 UNIT SC (09:45)
[2021-09-12 09:51] VITALS: BP 139/74; PULSE 81; RESP 18; TEMP 37.2; O2SAT 95
--- NOTE | 2021-09-12 11:30 | CASEMGMT ---
ORACIO PALM Assessment: Face to Face with pt for initial transition planning/care coordination assessment. ORACIO PALM introduced self and role at [facility], pt voices understanding and consents to assessment. Pt is A/O x4 and answers all questions appropriately at this time. Pt lying in bed in no distress. Care providers, pharmacy, and demographics verified/updated. Admitting Dx: diarrhea PCP:Clara Specialists:[facility] Priest [facility]: [facility] Insurance: [employer] NAIR Prescription Benefit: yes LW/HPOA: Pt states she has a LW/DPOA and her DPOA is her Baltazar Dubois. She is aware this is not on file at [facility] and she may bring in to be scanned into her chart. LNOK: Baltazar Dubois, Living Arrangements: Pt lives with her in a single story house with one step to enter with a grab bar to enter. Pt reports she is I in ADL's and denies concerns at home. Transportation: Pt provides pt with transportation. Pt denies issues with this. DME/HHC/SNF: Pt has canes and a walker at home. She does not use. Pt states she has had HHC in the past from [facility]. She denies SNF stays. Pt states no concerns with going home at time of dc. Pt denies need for any therapy. States once she gets up and is not attached to IV's and monitors, she will be fine. Pt states no further concerns/needs. CM to follow. Advised pt to ask CM if any further question/concerns/needs arise, voices understanding. Pt Goal: Home Plan: Home
--- NOTE | 2021-09-12 11:37 | DCINST_ITS ---
Discharge Instructions Diet Discharge Diet: Light diet - advance as tolerated Activity Discharge Activity: Return to Normal Activity and May Not Drive Weight Bearing Status: Weight bearing as tolerated Dressing / Incision Call your doctor if you observe: Fever of 101 or Higher, Coldness, Increased Pain, Numbness or Tingling, Change in Color, Inability to urinate, Inability to have a bowel movement, Shortness of breath, Dizziness, Fainting spells, Swelling in the ankles, Chest pain, Prolonged hiccupping, Increased palpitations (irregular heartbeat) and Calf discomfort Follow Up Care Test Results: Test results from this visit will be discussed in further detail at your follow- up appointment, if applicable. Discharge Plan Admission Admit Date/Time: 09/11/21 13:45 Primary Reason for Your Visit: IBS, diarrhea predominant, no infectious cause found Attending Provider: Kin Cortes Primary Care Provider: Addi Elizabeth Instructions Additional Instructions / Restrictions: I offered her to follow-up with GI Dr. Friend as an outpatient for IBS?diarrhea predominant but she declined. She states he follows with [facility] for her multiple myeloma Discharge Orders/Prescriptions Prescriptions: Continued acyclovir 400 MG tablet 400 mg PO BID Centrum Silver Women 1 EACH tablet 1 ea PO DAILY trazodone 50 mg tablet 50 mg PO QHS lisinopril 20 mg tablet 20 mg PO DAILY diphenoxylate-atropine 2.5-0.025 mg tablet 1 tab PO 4X/DAY PRN (Reason: STOOL) meclizine 25 mg tablet 25 mg PO BID PRN (Reason: Dizziness) Label Comments: take 1 tablet by mouth twice a day for dizziness levothyroxine [Synthroid] 125 mcg tablet 125 mcg PO DAILY metoprolol succinate 25 mg tablet extended release 24 hr 25 mg PO DAILY donepezil 10 mg tablet 10 mg PO DAILY oxybutynin chloride 5 mg tablet 5 mg PO BID duloxetine 60 mg capsule,delayed release(DR/EC) 60 mg PO DAILY Viberzi 75 mg tablet 1 tab PO BID Changed omeprazole 20 MG capsule 40 mg PO DAILY Qty: 30 0RF Held diclofenac sodium 75 mg tablet,delayed release (DR/EC) 75 mg PO BID Hold Instructions: Hold for 1 week. Discussed with PCP. 75 mg p.o. twice da france as needed as needed for arthritis pain. Referrals / Follow Up: Addi Elizabeth MD [Primary Care Provider] - Within 2 Weeks Disposition Disposition (needs filled in before D/C Order can be placed): Home, Self Care
--- NOTE | 2021-09-12 13:41 | PCM.DC.SUM ---
Providers Date of Admission: 09/11/21 Primary Care Physician: Dr. Addi Elizabeth MD Reason For Visit: DIARRHEA Diagnosis Discharge Diagnosis (1) Acute renal failure: Status: Acute Code(s): N17.9 - Acute kidney failure, unspecified (2) Diarrhea: Status: Acute Code(s): R19.7 - Diarrhea, unspecified Medications at Discharge Home Medications acyclovir 400 mg tablet 400 mg PO BID 08/16/17 multivit with zeopzkoa-umxc-OW-lutein 8 mg iron-400 mcg-300 mcg tablet (Centrum Silver Women) 1 ea PO DAILY 08/16/17 diphenoxylate-atropine 2.5 mg-0.025 mg tablet 1 tab PO 4X/DAY PRN STOOL 03/07/21 levothyroxine 125 mcg tablet (Synthroid) 125 mcg PO DAILY THYROID 03/07/21 lisinopril 20 mg tablet 20 mg PO DAILY BP 03/07/21 meclizine 25 mg tablet 25 mg PO BID PRN Dizziness 03/07/21 metoprolol succinate 25 mg tablet,extended release 24 hr 25 mg PO DAILY HEART 03/07/21 trazodone 50 mg tablet 50 mg PO QHS SLEEP 03/07/21 diclofenac sodium 75 mg tablet,delayed release 75 mg PO BID PAIN 09/11/21 donepezil 10 mg tablet 10 mg PO DAILY MEMORY 09/11/21 duloxetine 60 mg capsule,delayed release 60 mg PO DAILY MOOD 09/11/21 oxybutynin chloride 5 mg tablet 5 mg PO BID BLADDER 09/11/21 eluxadoline 75 mg tablet (Viberzi) 1 tab PO BID Check with primary doctor 09/12/21 omeprazole 20 mg capsule,delayed release 40 mg PO DAILY #30 caps 09/12/21 Hospital Course Summary of Care Provided Hospital Course: This is a 70-year-old female came to ER for chronic diarrhea ongoing for about 1 month along with abdominal cramps. 1. Chronic diarrhea, exact etiology unclear unclear possible differential antibiotic associated diarrhea, rule out C. difficile: Patient is being admitted on MedSurg. IV fluid resuscitation. Stool for C. difficile, enteric bacterial panel, ova parasite, lactoferrin and occult blood ordered. Monitor intake and output. WBC count is elevated 17.1 thousand, improving, prior labs showed 24,000. 09/12: Leukocytosis much improved to 11.5 thousand. No fever or chills. Stool for C. difficile, enteric bacteriology panel are negative. I do not think patient has infectious cause for leukocytosis. Advised follow-up oncologist in [facility] for multiple myeloma. 2. Acute kidney injury on baseline CKD stage III, mainly prerenal: BUN/creatinine 61/2.68. Baseline creatinine is 0.7 with estimated creatinine clearance 45 mill per minute suggestive CKD stage IIIa. Calcium 10.0, high normal, baseline calcium 8.8-9.3. IV fluid Ringer lactate ordered. Monitor intake and output. Monitor electrolytes and kidney function. Serum phosphorus and magnesium ordered, pending. UA shows LE 25, WBC 5?10 cells. Bacteria 2+. Patient does not have burning micturition, therefore asymptomatic bacteria. 09/12: REX resolved. Repeat creatinine 0.91, BUN 38. Magnesium 1.9, phosphorus high 7.5. Avoid phosphorus content medications. Home medications reviewed. Patient not on any home medication to cause hyperphosphatemia. 3. Hypertension: Blood pressure on lower side. Hold antihypertensive medication. 4. Hypothyroidism, continue on synthroid History of multiple myeloma in remission: Patient not on chemotherapy for last 10 to 12 years, in remission. Follow-up [facility] oncologist. DVT prophylaxis: Heparin 5000 unit subcutaneous every 12 hourly. Bilateral SCDs. Discontinue if platelet count drops less than 50,000 or hemoglobin less than 8 g% Discharge medication reconciliation done. Discharge follow-up instructions completed. Discharge process discussed with the patient and all questions were answered to patient's satisfaction. Discharged home. Patient given option for follow-up with GI Friend for IBS?D but she declined. She said she follows oncologist in [facility]. Next Total time spent, exact 35 minutes on discharge meds reconciliation, examination, coordination of care with nurses and ancillary staff, review of imaging and blood test and discussion with the patient on follow-up instructions. Living will/advanced directive/end of life care: Patient does have living will or advanced directive. Her is power of workers compensation attorney for health. After discussion of benefits/risks procedures involved with full code, DNR CC arrest and DNR CC, the patient and her opted for DNRCC arrest with no intubation Patient doesn't want artificial life support including intubation, tube feed, ventilator and/chest compression, central venous catheter, vasopressor and DC shock if needed. Physical Exam Narrative Seen and examined on the day of discharge Physical exam General: Alert, Oriented x3, Cooperative HEENT: Uses hearing aid, bilateral hearing loss, right more than left. Atraumatic, PERRLA, EOMI, Normocephalic Oral: Oral mucosa dry. No Gingival or Mucosal Lesions/ Ulcerations Neck: Supple, No JVD, Negative Carotid Bruits Lungs: Air entry equal in bilateral lung bases. No crepitation/rhonchi Cardiovascular: Regular rate, Regular Rhythm, Normal S1, Normal S2, No murmurs Abdomen: Bowel Sounds Present, Soft, Non Tender, Non-Distended. No hepatomegaly. No palpable lump : No renal angle tenderness. No suprapubic tenderness. Extremities: No edema, Capillary Refill Less than 3 Seconds Skin: No rashes, No breakdown Musculoskeletal: No Tenderness to Palpation of Joints or Extremities Neurological: Cranial nerves II-XII grossly intact, DTR 2+/4 and Symmetrical, Neuro grossly intact Psych/Mental Status: Normal Affect, Appropriate. Weight / BMI Weight Weight: 117 lb 4.575 oz Body Mass Index (BMI) 19.2 ABG / Lab / Microbiology Data Result Diagrams: 09/12/21 05:12 09/12/21 05:12 Laboratory: Laboratory Results - last 24 hr 09/11/21 12:00: Phosphorus 7.5 H, Magnesium 1.9 09/11/21 13:10: Urine Color Yellow, Urine Clarity Clear, Urine pH 5.0, Ur Specific [place] 1.025, Urine Protein 30 H, Urine Glucose (UA) Normal, Urine Ketones 5 H, Urine Occult Blood 10 H, Urine Nitrite Negative, Urine Bilirubin 1 H, Urine Urobilinogen Normal, Ur Leukocyte Esterase 25 H, Urine RBC Not Reportable, Urine WBC 5-10 SEEN, Ur Squamous Epith Cells 0-5 SEEN, Urine Bacteria 2+, Urine Mucus 2+ 09/12/21 05:12: Sodium 139, Potassium 4.0, Chloride 111 H, Carbon Dioxide 22.0, Anion Gap 6, BUN 38 H, Creatinine 0.91, Estim Creat Clear Calc 46.93, Est GFR (MDRD) Af Amer 78, Est GFR (MDRD) Non-Af 64, BUN/Creatinine Ratio 41.7 H, Glucose 95, Calcium 9.1, TSH 2.63, Free T4 1.08 09/12/21 05:12: WBC 11.5 H, RBC 3.75 L, Hgb 11.2 L, Hct 33.9 L, MCV 90.4, MCH 29.9, MCHC 33.0, RDW Std Deviation 45.6 H, RDW Coeff of Willie 13.7, Plt Count 256, MPV 10.7, Immature Gran % (Auto) 0.400, Neut % (Auto) 60.4, Lymph % (Auto) 24.3, [place] % (Auto) 7.1, Eos % (Auto) 7.3 H, Baso % (Auto) 0.5, Absolute Neuts (auto) 6.9, Absolute Lymphs (auto) 2.79, Nucleated RBC % 0 Microbiology: Microbiology 09/12/21 00:50 Stool Enteric Bacteriology - Final 09/12/21 00:50 Stool C. difficile DNA Amplification - Final D/C Instructions Discharge Diet: Light diet - advance as tolerated Weight Bearing Status: Weight bearing as tolerated Call your doctor if you observe: Fever of 101 or Higher, Coldness, Increased Pain, Numbness or Tingling, Change in Color, Inability to urinate, Inability to have a bowel movement, Shortness of breath, Dizziness, Fainting spells, Swelling in the ankles, Chest pain, Prolonged hiccupping, Increased palpitations (irregular heartbeat) and Calf discomfort Meaningful Use Info Meaningful Use Diagnoses (Choose all that apply): None applicable Discharge Plan Admission Admit Date/Time: 09/11/21 13:45 Primary Reason for Your Visit: IBS, diarrhea predominant, no infectious cause found Attending Provider: Kin Cortes Primary Care Provider: Addi Elizabeth Instructions Additional Instructions / Restrictions: I offered her to follow-up with GI Friend as an outpatient for IBS?diarrhea predominant but she declined. She states he follows with [facility] for her multiple myeloma Discharge Orders/Prescriptions Prescriptions: Continued acyclovir 400 MG tablet 400 mg PO BID Centrum Silver Women 1 EACH tablet 1 ea PO DAILY trazodone 50 mg tablet 50 mg PO QHS lisinopril 20 mg tablet 20 mg PO DAILY diphenoxylate-atropine 2.5-0.025 mg tablet 1 tab PO 4X/DAY PRN (Reason: STOOL) meclizine 25 mg tablet 25 mg PO BID PRN (Reason: Dizziness) Label Comments: take 1 tablet by mouth twice a day for dizziness levothyroxine [Synthroid] 125 mcg tablet 125 mcg PO DAILY metoprolol succinate 25 mg tablet extended release 24 hr 25 mg PO DAILY donepezil 10 mg tablet 10 mg PO DAILY oxybutynin chloride 5 mg tablet 5 mg PO BID duloxetine 60 mg capsule,delayed release(DR/EC) 60 mg PO DAILY Viberzi 75 mg tablet 1 tab PO BID Changed omeprazole 20 MG capsule 40 mg PO DAILY Qty: 30 0RF Held diclofenac sodium 75 mg tablet,delayed release (DR/EC) 75 mg PO BID Hold Instructions: Hold for 1 week. Discussed with PCP. 75 mg p.o. twice daily as needed as needed for arthritis pain. Referrals / Follow Up: Addi Elizabeth MD [Primary Care Provider] - Within 2 Weeks Disposition Disposition (needs filled in before D/C Order can be placed): Home, Self Care Charges/Coding Addendum Addendum: Patient was admitted as inpatient but was discharged because of sooner recovery than expected at time of admission. REX resolved. Visit Charges Inpatient E&M: 03379 Disch Hosp
[2021-09-12 14:40] VITALS: BP 103/50; PULSE 96; RESP 16; TEMP 36.8; O2SAT 97
[2021-09-12] MEDS: 0.9% Saline Lock 10 ML Syringe IV (14:48)
== END 2021-09-12 15:26 | disposition home or self-care (01) | DRG 683 ==
LOC: ED 14:02 → MS3 14:31
PROVIDERS: Admitting Provider Internal Medicine; Emergency Provider Emergency Medicine; PCP Family Medicine; Visit Provider Internal Medicine
DX: N17.9 Acute kidney failure, unspecified (principal); C90.01 Multiple myeloma in remission; E83.39 Other disorders of phosphorus metabolism; E03.9 Hypothyroidism, unspecified; K21.9 Gastro-esophageal reflux disease without esophagitis; F17.210 Nicotine dependence, cigarettes, uncomplicated; I95.9 Hypotension, unspecified; N18.31 Chronic kidney disease, stage 3a; K52.9 Noninfective gastroenteritis and colitis, unspecified; I12.9 Hypertensive chronic kidney disease with stage 1 through stage 4 chronic kidney disease, or unspecified chronic kidney disease; R82.71 Bacteriuria; H91.93 Unspecified hearing loss, bilateral; Z66 Do not resuscitate; Z79.890 Hormone replacement therapy; Z79.899 Other long term (current) drug therapy
CPT/HCPCS: 36415; 36591; 80048; 80076; 81001; 82274; 83630; 83735; 84100; 84439; 84443; 85025; 87177; 87209; 87493; 87506; 93005; 97161; 97166; 97802; 99251; 99284; J7030; J7120; A4216; G0463

== ENCOUNTER 2022-03-14 18:48 | Emergency (ER) | payer MEDICARE, OTHER, SELFPAY ==
[2022-03-14 18:48] VITALS: BP 221/106; PULSE 62; RESP 18; TEMP 36.6; O2SAT 95
--- NOTE | 2022-03-14 19:04 | EKG12_ITS ---
Test Reason : HTN/CP Blood Pressure : / mmHG Vent. Rate : 066 BPM Atrial Rate : 066 BPM P-R Int : 146 ms QRS Dur : 080 ms QT Int : 480 ms P-R-T Axes : 061 -13 071 degrees QTc Int : 503 ms Sinus rhythm with occasional Premature ventricular complexes Possible Left atrial enlargement Nonspecific ST and T wave abnormality Prolonged QT Abnormal ECG Confirmed by AGUSTÍN BROWN, AVELINO ([id number]), copy editor SARAH LEDESMA ([id number]) on 03/18/2022 11:46:12 AM Referred By: LEANNE Confirmed By:AVELINO RANDOLPH MD
[2022-03-14 19:19] LABS: Absolute Lymphocyte Count 3.59 X10^3/uL (0.83-4.51); Absolute Neutrophil Count 4.3 X10^3/uL (2.0-7.7); Basophil# 0.06 X10^3/uL; Basophil% 0.7 % (0-1); Eosinophil# 0.39 X10^3/uL; Eosinophils% 4.4 % (0-5); Hematocrit 36.5 % (37-47); Hemoglobin 12.5 g/dL (12.0-15.0); Lymphocyte # 3.59 X10^3/ul (0.83-4.51); Lymphocyte % 40.2 % (19-41); Mean Corp Hgb Conc 34.2 g/dL (32-36); Mean Corpuscular Hgb 32.5 pg (27.0-32.0); Mean Corpuscular Volume 94.8 fL (81-99); Mean Platelet Vol. 10.2 fl (6.2-12.0); Monocyte# 0.53 X10^3/uL; Monocyte% 5.9 % (0-10); NRBC Flagged by Analyzer 0 % (0-5); Neutrophil # 4.32 X10^3/uL (2.7-7.7); Neutrophil % 48.2 % (47-70); Platelet Count 306 K/mm3 (150-450); RBC Distribution Width CV 13.5 % (11.6-14.6); RBC Distribution Width SD 47.3 fl (35.1-43.9); Red Blood Count 3.85 M/mm3 (4.2-5.4); White Blood Count 8.9 K/mm3 (4.4-11.0)
[2022-03-14 19:26] LABS: Bedside Glucose 100 mg/dL (74-106)
[2022-03-14 19:29] LABS: International Normalized Ratio 1.1; Partial Thromboplast Time 28.6 Seconds (24.1-36.2); Prothrombin Time (Protime)PT. 13.8 SECONDS (11.7-14.9)
[2022-03-14 19:34] LABS: Anion Gap 7 (5-15); BUN 18 mg/dL (7-18); BUN/Creat Ratio 26.7 RATIO (10-20); Calcium,Total 9.1 mg/dL (8.5-10.1); Chloride 103 mmol/L (98-107); Creatinine, Serum 0.67 mg/dL (0.55-1.02); EST Glomerular Filtration Rate 91 mL/min (>60); Est Glom Filt Rate - Afr Amer 110 mL/min (>60); Estimated Creatinine Clearance 43.05 ml/min; Glucose 112 mg/dL (74-106); Potassium 2.8 mmol/L (3.5-5.1); Sodium Level 142 mmol/L (136-145)
[2022-03-14 19:55] VITALS: BP 171/105; PULSE 65; RESP 12; TEMP 36.9; O2SAT 92
[2022-03-14 20:00] VITALS: BP 168/76; PULSE 77; RESP 15; O2SAT 97
[2022-03-14 22:44] VITALS: BP 168/107
--- NOTE | 2022-03-14 23:02 | CT_ITS ---
INDICATION: Weakness, dizziness, hypertension EXAMINATION: CT Head or Brain W/O Contrast Injection TECHNIQUE: Multiple axial images were obtained of the head without intravenous contrast. A radiation dose optimization technique was used for this scan. IV Contrast dosage and agent: None. COMPARISON: Head CT from 08/16/2017 FINDINGS: BRAIN PARENCHYMA: No intra- or extra-axial hemorrhage. No evidence of acute major territorial infarct. No intracranial mass or mass effect. Chronic bilateral deep cerebral white matter lucencies are present. Chronic cerebral and cerebellar involutional changes again noted. CSF SPACES: Prominent cerebral sulci and extraaxial spaces secondary to involutional changes. No hydrocephalus. Basal cisterns are patent. Intracranial atherosclerotic calcifications. CALVARIUM, SKULL BASE, PARANASAL SINUSES AND MASTOID AIR CELLS: Calvarium is intact. Chronic left sphenoid sinus mucosal thickening. Mastoid air cells are well-pneumatized. ORBITS: No acute findings. CT/Brain/Head without Contrast IMPRESSION: Chronic involutional and white matter changes. No evidence of acute intracranial abnormality. Electronically Signed: True Fox MD at 23:42 EST ,
--- NOTE | 2022-03-14 23:29 | RAD_ITS ---
EXAM: XR CHEST, 2 VIEWS CLINICAL INDICATION: weakness TECHNIQUE: Frontal and lateral views of the chest. This report was created using [employer] report generation technology. COMPARISON: Previous chest radiographs of 07/31/2021 and 08/16/2014. FINDINGS: LUNGS AND PLEURAL SPACES: The patchy pneumonia previously seen within the right midlung has resolved. No acute pulmonary infiltrates or pleural effusions are identified. Lungs remain hyperinflated with mild flattening of the hemidiaphragms due to pulmonary emphysema. No pneumothorax. HEART: Unremarkable. Cardiac silhouette not enlarged. MEDIASTINUM: Stable moderate elongation of the thoracic aorta. Trachea is midline. No mediastinal widening. BONES/JOINTS: Osseous structures are again noted to be demineralized. Old compression fractures noted in the lower thoracic to upper lumbar region. There is stable posttraumatic deformity of the proximal left humerus. There is an old fracture of the anterior left fourth rib. Extensive cervical degenerative changes are present. Mild thoracic degenerative spurring is noted. SOFT TISSUES: Numerous surgical clips again noted in the right thyroid bed. TUBES, LINES AND DEVICES: Stable positioning of Mediport catheter. RAD/Chest PA and Lateral IMPRESSION: Interval resolution of right midlung pneumonia. Pulmonary emphysema. No acute process. Electronically Signed: Deep Knox MD at 0:26 EST ,
[2022-03-14 23:39] LABS: Magnesium 1.6 mg/dL (1.6-2.6)
[2022-03-14 23:44] VITALS: BP 190/83
[2022-03-14] MEDS: cloNIDine HCl 0.1 MG Tablet PO (23:45)
[2022-03-14] MEDS: hydrALAZINE 20 MG/ML Vial 10 MG IV (23:46)
[2022-03-15 01:03] VITALS: RESP 16
--- NOTE | 2022-03-15 01:43 | EDS_ITS ---
HPI History of Present Illness Chief Complaint: Weakness Narrative Narrative: Patient is a 71-year-old female with past medical history of hypertension and multiple myeloma. She reports earlier today she was having generalized weakness where she felt like she was having difficulty walking and secondary to this comes to the hospital for evaluation. She states that there are no associated symptoms such as congestion drainage cough shortness of breath chest pain diarrhea or dysuria. She has she reports feeling better at this time without any symptom intervention. PFSH PFSH Medical History Diarrhea GERD (gastroesophageal reflux disease) HTN (hypertension) Hypothyroid Multiple myeloma Port-A-Cath in place Smoker Home Medications acyclovir 400 mg tablet 400 mg PO BID 08/16/17 [History Last Taken 09/11/21] multivit with [id number] 8 mg iron-400 mcg-300 mcg tablet (Centrum Silver Women) 1 ea PO DAILY 08/16/17 [History Last Taken 09/11/21] diphenoxylate-atropine 2.5 mg-0.025 mg tablet 1 tab PO 4X/DAY PRN STOOL 03/07/21 [History Last Taken 09/11/21] levothyroxine 125 mcg tablet (Synthroid) 125 mcg PO DAILY THYROID 03/07/21 [History Last Taken 09/11/21] lisinopril 20 mg tablet 20 mg PO DAILY BP 03/07/21 [History Last Taken 09/10/21] meclizine 25 mg tablet 25 mg PO BID PRN Dizziness 03/07/21 [History Last Taken 09/11/21] metoprolol succinate 25 mg tablet,extended release 24 hr 25 mg PO DAILY HEART 03/07/21 [History Last Taken 09/11/21] trazodone 50 mg tablet 50 mg PO QHS SLEEP 03/07/21 [History Last Taken 09/10/21] donepezil 10 mg tablet 10 mg PO DAILY MEMORY 09/11/21 [History Last Taken 09/11/21] duloxetine 60 mg capsule,delayed release 60 mg PO DAILY MOOD 09/11/21 [History Last Taken 09/11/21] oxybutynin chloride 5 mg tablet 5 mg PO BID BLADDER 09/11/21 [History Last Taken 09/11/21] eluxadoline 75 mg tablet (Viberzi) 1 tab PO BID Check with primary doctor 09/12/21 [History Last Taken Unknown] lisinopril 5 mg tablet 5 mg PO DAILY #30 tabs 09/12/21 [Rx Last Taken Unknown] omeprazole 20 mg capsule,delayed release 40 mg PO DAILY #30 caps 09/12/21 [Rx Last Taken Unknown] Allergy/AdvReac Type Severity Reaction Status Date / Time No Known Allergies Allergy Verified 03/14/22 23:09 Surgical History H/O hernia repair Social History Smoking Status: Current every day smoker tobacco type: e-cigarettes ROS ROS ED Constitutional Constitutional ED: Denies chills or fever(s) ENT ENT ED: Denies rhinorrhea or sore throat Cardiovascular Cardiovascular: Denies chest pain or palpitations Respiratory/Chest Respiratory/Chest: Denies cough or dyspnea Gastrointestinal Gastrointestinal: Denies abdominal pain, diarrhea, nausea or vomiting Genitourinary Genitourinary ED: Denies dysuria Musculoskeletal Musculoskeletal: Denies myalgias Integumentary Denies rash Neurologic Neurologic: Reports weakness; Denies headache(s) Hematologic/Lymphatic Hematologic/Lymphatic: Denies easy bleeding or easy bruising EXAM Physical Exam Const Vital Signs: 03/14/22 18:48 03/14/22 22:44 03/14/22 19:55 Temperature 97.8 F Temperature Source Temporal Pulse Rate 62 Respiratory Rate 18 Respiratory Effort Respiratory Pattern Blood Pressure 221/106 H 168/107 H Blood Pressure Mean 144 127 Pulse Ox 95 92 Oxygen Delivery Method Room Air Room Air 03/14/22 20:00 03/14/22 19:55 03/14/22 23:44 Temperature 98.4 F Temperature Source Oral Pulse Rate 65 Respiratory Rate 12 Respiratory Effort Normal Non-Labored Respiratory Pattern Normal Blood Pressure 171/105 H 190/83 H Blood Pressure Mean 127 118 Pulse Ox 92 Oxygen Delivery Method Room Air 03/14/22 20:00 03/15/22 01:03 03/15/22 01:49 Temperature Temperature Source Pulse Rate 77 Respiratory Rate 15 16 16 Respiratory Effort Respiratory Pattern Blood Pressure 168/76 H Blood Pressure Mean 106 Pulse Ox 97 Oxygen Delivery Method Room Air Room Air Positive well nourished and well developed General Appearance ED: well developed HEENT HEENT Narrative: Mucous membranes are slightly dry and tacky without oral lesions or airway edema or compromise Eyes PERRL and EOMs intact bilaterally General Eye ED: Negative for scleral icterus Neck supple Neck Narrative: No carotid bruit noted Carotid pulses are plus 2 out of 4 bilaterally Chest Wall palpation of chest normal Resp normal respiratory effort and clear to auscultation bilaterally Resp Narrative: No nasal flaring retractions tachypnea or accessory muscle use Cardio regular rate and regular rhythm Rate: other Other Details: Radial pulses are plus 2 out of 4 bilaterally they are equal and symmetric GI normal to inspection, nondistended, normoactive bowel sounds, non-tender and non-distended GI Narrative: No voluntary guarding or rigidity no pulsatile mass or fluid wave Auscultation: normoactive bowel sounds Palpation: soft Extremity normal to inspection Neuro oriented x3 and CN's II-XII intact bilaterally Neuro Narrative: Cranial nerves II through XII are grossly intact there are no focal neurologic deficits. No pronator drift no dysmetria no truncal ataxia. NIH stroke scale score of 0 Sensorium / Orientation: alert Psych mental status grossly normal Skin no rashes or lesions noted General Skin Exam: Negative for jaundice MDM MDM MDM Narrative Medical decision making narrative: Patient reported generalized weakness without focal deficit and arrived to the ER hypertensive. Secondary to this a basic work-up was obtained. Labs revealed no signs of endorgan damage and EKG was sinus rhythm with normal head CT. Patient's blood pressure was improving spontaneously and she also reported resolution of her weakness upon arrival to the ER without any symptom intervention. She was able to ambulate with a steady gait and therefore at this time with work-up showing no acute infectious process and patient having no signs of endorgan damage from her accelerated hypertension I do not feel there is need for admission and she is otherwise safe for discharge. Lab Data Attestation: I reviewed the patient's lab results. Labs: Laboratory Results - last 24 hr 03/14/22 03/14/22 03/14/22 18:37 18:37 18:37 WBC 8.9 RBC 3.85 L Hgb 12.5 Hct 36.5 L MCV 94.8 MCH 32.5 H MCHC 34.2 RDW Std Deviation 47.3 H RDW Coeff of Willie 13.5 Plt Count 306 MPV 10.2 Immature Gran % (Auto) 0.600 Neut % (Auto) 48.2 Lymph % (Auto) 40.2 [place] % (Auto) 5.9 Eos % (Auto) 4.4 Baso % (Auto) 0.7 Absolute Neuts (auto) 4.3 Absolute Lymphs (auto) 3.59 Nucleated RBC % 0 PT 13.8 INR 1.1 APTT 28.6 Sodium 142 Potassium 2.8 L Chloride 103 Carbon Dioxide 32.0 Anion Gap 7 BUN 18 Creatinine 0.67 Estim Creat Clear Calc 43.05 Est GFR (MDRD) Af Amer 110 Est GFR (MDRD) Non-Af 91 BUN/Creatinine Ratio 26.7 H Glucose 112 H Calcium 9.1 Magnesium POC Glucose 03/14/22 03/14/22 18:37 19:06 WBC RBC Hgb Hct MCV MCH MCHC RDW Std Deviation RDW Coeff of Willie Plt Count MPV Immature Gran % (Auto) Neut % (Auto) Lymph % (Auto) [place] % (Auto) Eos % (Auto) Baso % (Auto) Absolute Neuts (auto) Absolute Lymphs (auto) Nucleated RBC % PT INR APTT Sodium Potassium Chloride Carbon Dioxide Anion Gap BUN Creatinine Estim Creat Clear Calc Est GFR (MDRD) Af Amer Est GFR (MDRD) Non-Af BUN/Creatinine Ratio Glucose Calcium Magnesium 1.6 POC Glucose 100 Radiography Diagnostic Testing: Clinical Impression(s) from Imaging Studies Brain CT 03/14/22 23:02 IMPRESSION: Chronic involutional and white matter changes. No evidence of acute intracranial abnormality. Electronically Signed: True Fox MD at 23:42 EST , Chest X-Ray 03/14/22 23:29 IMPRESSION: Interval resolution of right midlung pneumonia. Pulmonary emphysema. No acute process. Electronically Signed: Deep Knox MD at 0:26 EST , Chest x-ray as interpreted by the emergency medicine physician reveals no acute infiltrate pneumothorax or pleural effusion Discharge Plan Triage Chief Complaint: Weakness ED Provider: Diallo Dent Dx/Rx/DC Orders Clinical Impression: Weakness, Accelerated hypertension, Acute hypokalemia Instructions: Blood Pressure Check Steps, ED Weakness (Uncertain Cause) Prescriptions: No Action acyclovir 400 MG tablet 400 mg PO BID Centrum Silver Women 1 EACH tablet 1 ea PO DAILY trazodone 50 mg tablet 50 mg PO QHS lisinopril 20 mg tablet 20 mg PO DAILY diphenoxylate-atropine 2.5-0.025 mg tablet 1 tab PO 4X/DAY PRN (Reason: STOOL) meclizine 25 mg tablet 25 mg PO BID PRN (Reason: Dizziness) Label Comments: take 1 tablet by mouth twice a day for dizziness levothyroxine [Synthroid] 125 mcg tablet 125 mcg PO DAILY metoprolol succinate 25 mg tablet extended release 24 hr 25 mg PO DAILY donepezil 10 mg tablet 10 mg PO DAILY oxybutynin chloride 5 mg tablet 5 mg PO BID duloxetine 60 mg capsule,delayed release(DR/EC) 60 mg PO DAILY Viberzi 75 mg tablet 1 tab PO BID omeprazole 20 MG capsule 40 mg PO DAILY Qty: 30 0RF lisinopril 5 mg tablet 5 mg PO DAILY Qty: 30 1RF Rx Instructions: start on 09/14/2021. Hold for SBP less than 130 mmHg. Hold for kidney failure, creatinine more than 1.3 Primary Care Provider: Addi Elizabeth Referrals: Addi Elizabeth MD [Primary Care Provider] - Activity Restrictions/Additional Instructions: Please continue all of your medications as previously directed by your doctor and return to the ER should you have any further concerns Disposition Disposition: Home, Self Care Discharge Date/Time: 03/15/22 02:11
[2022-03-15 01:49] VITALS: RESP 16
[2022-03-15] MEDS: Potassium Chloride Oral Tablet 20 MEQ 40 MEQ PO (01:58)
== END 2022-03-15 02:11 | disposition home or self-care (01) ==
PROVIDERS: Emergency Provider Emergency Medicine; PCP Family Medicine; Visit Provider Emergency Medicine
DX: R53.1 Weakness (principal); F17.290 Nicotine dependence, other tobacco product, uncomplicated; E87.6 Hypokalemia; I10 Essential (primary) hypertension
CPT/HCPCS: 70450; 71046; 80048; 82962; 83735; 85025; 85610; 85730; 87428; 93005; 96374; 99285; A4216

== ENCOUNTER 2022-03-23 17:32 | Emergency (ER) | payer MEDICARE, OTHER, SELFPAY ==
[2022-03-23 17:34] VITALS: BP 179/103; PULSE 74; RESP 18; TEMP 35.8; O2SAT 93; BMI 21.9
[2022-03-23 17:59] VITALS: BP 167/90; PULSE 74; RESP 20; O2SAT 96
--- NOTE | 2022-03-23 18:36 | CT_ITS ---
EXAM: CT HEAD WITHOUT INTRAVENOUS CONTRAST CLINICAL INDICATION: confusion TECHNIQUE: Multiple axial images were obtained of the head without intravenous contrast. This CT exam was performed using one or more of the following dose reduction techniques: automated exposure control, adjustment of the mA and/or kV according to patient size, and/or use of iterative reconstruction technique. This report was created using [employer] report generation technology. COMPARISON: 03/14/2022 FINDINGS: BRAIN AND EXTRA-AXIAL SPACES: There are is enlargement of the ventricular system and cortical sulci. There is hypoattenuation in the periventricular white matter. No intra- or extra-axial hemorrhage. No evidence of acute infarct. No intracranial mass or mass effect. There is preservation of the mendes/white matter interface. Posterior fossa structures are unremarkable. Basal cisterns are patent. BONES/JOINTS: Unremarkable. No discrete lytic or blastic abnormalities. SINUSES: There is a small stable air-fluid level in the left sphenoid sinus. MASTOID AIR CELLS: Unremarkable. Clear. ORBITS: Visualized globes, extraocular muscles, optic nerves and retrobulbar fat appear unremarkable. CT/Brain/Head without Contrast IMPRESSION: 1. No acute intracranial abnormality. There has been no significant change from the reference exam. 2. Stable underlying senescent change with small vessel ischemia. Electronically Signed: Tito Gutiérrez MD at 19:44 EST ,
--- NOTE | 2022-03-23 18:37 | EKG12_ITS ---
Test Reason : HTN Blood Pressure : / mmHG Vent. Rate : 061 BPM Atrial Rate : 061 BPM P-R Int : 146 ms QRS Dur : 072 ms QT Int : 420 ms P-R-T Axes : 061 -09 072 degrees QTc Int : 422 ms Normal sinus rhythm Normal ECG Confirmed by PITO BROWN, MARIUSZ ([id number]), manager editorial SARAH LEDESMA ([id number]) on 03/24/2022 1:59:49 PM Referred By: Confirmed By:MARIUSZ SHELDON MD
--- NOTE | 2022-03-23 18:39 | EX.ED.DYSGE1 ---
HPI History of Present Illness Chief Complaint: Hypertension Informant: patient and spouse/S.O. Narrative Narrative: Getting the details of reason for coming is quite difficult with this patient. I have had now 3 separate visits with her and her trying to sort out the reason for arrival to the emergency department. They use many very nonspecific terms such as ill discombobulated and not well. I have trouble having them do fine with these episodes and statements mean. It appears as though the patient has been having spells for about a month and a half. She will get shaking but remains alert. She will have trouble explaining how she is feeling at that time. states it looks like she is having an anxiety attack but he does not know if that is what is going on. The states she was holding her chest but she denies this and she denies ever having chest pain. She states she was holding her abdomen but it was not hurting it was just feeling different. They are both concerned that when she has these episodes her blood pressure tends to go up. They were seen once in the emergency department but have not seen anyone else for these episodes. The states that she is acting really normally right now. They denies any change in medications recently. Patient does have a history of some dementia. Although she states she has been feeling not well. She is not able to easily define this. When I asked specific questions such as headache, chest pain, cough congestion myalgias she denies all review of systems. She has never had focal weakness or numbness. Despite extensive questioning I get no indication that she has ever been dysarthric nor has she had expressive or receptive aphasia. [facility] Medical History Acquired iron deficiency anemia due to decreased absorption Anemia Anxiety and depression Benign paroxysmal positional vertigo Chemotherapy induced nausea and vomiting Chronic pain of both knees Chronic pain of both shoulders Dehydration Dementia without behavioral disturbance Diarrhea Dysuria Elevated fasting blood sugar Essential hypertension GERD (gastroesophageal reflux disease) GERD without esophagitis Hemangioma Herpes History of compression fracture of spine History of shingles HTN (hypertension) Hypercalcemia Hypomagnesemia Hypothyroid Immunodeficiency Irritable bowel syndrome with diarrhea Left ventricular hypertrophy Medication management Mixed hyperlipidemia Multiple myeloma Multiple myeloma in relapse Oral mucosal lesion Osteopenia, senile Port-A-Cath in place Smoker SOB (shortness of breath) Urgency incontinence Urinary frequency Home Medications acyclovir 400 mg tablet 400 mg PO BID 08/16/17 [History Last Taken 09/11/21] multivit with yvqksjvq-rhil-DX-lutein 8 mg iron-400 mcg-300 mcg tablet (Centrum Silver Women) 1 ea PO DAILY 08/16/17 [History Last Taken 09/11/21] diphenoxylate-atropine 2.5 mg-0.025 mg tablet 1 tab PO 4X/DAY PRN STOOL 03/07/21 [History Last Taken 09/11/21] levothyroxine 125 mcg tablet (Synthroid) 125 mcg PO DAILY THYROID 03/07/21 [History Last Taken 09/11/21] lisinopril 20 mg tablet 40 mg PO DAILY BP 03/07/21 [History Last Taken 09/10/21] meclizine 25 mg tablet 25 mg PO BID PRN Dizziness 03/07/21 [History Last Taken 09/11/21] metoprolol succinate 25 mg tablet,extended release 24 hr 25 mg PO DAILY HEART 03/07/21 [History Last Taken 09/11/21] trazodone 50 mg tablet 50 mg PO QHS SLEEP 03/07/21 [History Last Taken 09/10/21] donepezil 10 mg tablet 10 mg PO DAILY MEMORY 09/11/21 [History Last Taken 09/11/21] duloxetine 60 mg capsule,delayed release 60 mg PO DAILY MOOD 09/11/21 [History Last Taken 09/11/21] oxybutynin chloride 5 mg tablet 5 mg PO BID BLADDER 09/11/21 [History Last Taken 09/11/21] eluxadoline 75 mg tablet (Viberzi) 1 tab PO BID Check with primary doctor 09/12/21 [History Last Taken Unknown] omeprazole 20 mg capsule,delayed release 40 mg PO DAILY #30 caps 09/12/21 [Rx Last Taken Unknown] acetaminophen 325 mg tablet (Tylenol) 650 mg PO Q6H PRN Pain 03/23/22 [History Last Taken Unknown] baclofen 5 mg tablet 5 mg PO BID 03/23/22 [History Last Taken Unknown] diclofenac sodium 75 mg tablet,delayed release 75 mg PO BID 03/23/22 [History Last Taken Unknown] eluxadoline 100 mg tablet (Viberzi) 100 mg PO BID 03/23/22 [History Last Taken Unknown] memantine 5 mg tablet 5 mg PO DAILY 03/23/22 [History Last Taken Unknown] nitrofurantoin monohydrate/macrocrystals 100 mg capsule (Macrobid) 100 mg PO BID 03/23/22 [History Last Taken Unknown] potassium chloride 20 mEq tablet,extended release(part/cryst) 20 meq PO BID 03/23/22 [History Last Taken Unknown] raloxifene 60 mg tablet 60 mg PO DAILY 03/23/22 [History Last Taken Unknown] Allergy/AdvReac Type Severity Reaction Status Date / Time bupropion [From Wellbutrin] AdvReac Other Verified 03/23/22 18:24 diphenhydramine AdvReac Itching Verified 03/23/22 18:13 [From Benadryl] morphine AdvReac Itching Verified 03/23/22 18:13 Surgical History H/O hernia repair S/P autologous bone marrow transplantation Social History Smoking Status: Current every day smoker tobacco type: e-cigarettes ROS ROS ED Constitutional Constitutional ED: Reports other Details: Patient occasionally feels sweaty or like she is having a hot flash. ; Denies chills or fever(s) Eyes Eyes: Denies change in vision ENT ENT ED: Denies rhinorrhea or sore throat Cardiovascular Cardiovascular: Denies chest pain, palpitations or racing heartbeat Respiratory/Chest Respiratory/Chest: Denies cough or dyspnea Gastrointestinal Gastrointestinal: Reports nausea and other Details: Indication has nausea but is not having now. ; Denies vomiting Genitourinary Genitourinary ED: Denies dysuria, hematuria or urinary frequency Musculoskeletal Musculoskeletal: Reports myalgias; Denies neck pain Integumentary Denies rash Neurologic Neurologic: Denies paresthesias or weakness Psychiatric Psychiatric: Reports anxiety Endocrine Endocrinology: Denies polydipsia or polyuria Hematologic/Lymphatic Hematologic/Lymphatic: Denies easy bleeding or easy bruising Allergic/Immunologic Allergic/Immunologic ED: Denies urticaria EXAM Physical Exam Const Vital Signs: 03/23/22 17:34 03/23/22 17:38 03/23/22 17:59 Temperature 96.5 F L Temperature Source Temporal Pulse Rate 74 74 Respiratory Rate 18 20 H Respiratory Pattern Normal Blood Pressure 179/103 H 167/90 H Blood Pressure Mean 128 115 Pulse Ox 93 96 Oxygen Delivery Method Room Air Room Air 03/23/22 19:23 Temperature Temperature Source Pulse Rate 63 Respiratory Rate 15 Respiratory Pattern Blood Pressure 197/76 H Blood Pressure Mean 116 Pulse Ox 97 Oxygen Delivery Method Room Air Positive well nourished and well developed General Appearance ED: well developed and NAD; Negative for pallor HEENT Reports moist mucous membranes Negative for trauma Eyes EOMs intact bilaterally Eyes Narrative: Visual esqueda are normal to confrontation. Neck no JVD Chest Wall inspection of chest normal Resp normal respiratory effort and clear to auscultation bilaterally Auscultation: Negative for rales, rhonchi or wheezes Cardio regular rate, regular rhythm and no murmurs GI normal to inspection, nondistended, normoactive bowel sounds, non-tender and non-distended Back/Spine no CVA tenderness Extremity normal to inspection General Extremety ED: Negative for edema or tenderness General Extremity: Negative for edema Neuro oriented x3 Neuro Narrative: Patient is alert and oriented to person place time and situation. It does not take a little bit of time to get these answers but it takes similar time with her . Psych mental status grossly normal Psych Narrative: The states it seems like she is very anxious when she has these episodes but she is not that way now. She is calm. She is cooperative. Skin no rashes or lesions noted General Skin Exam: Negative for jaundice or pallor MDM MDM MDM Narrative Medical decision making narrative: Patient had extensive medical work-up. CBC including white count hemoglobin hematocrit are normal. Electrolytes show no acute abnormalities. Creatinine is preserved. Liver function test look good. Troponin is negative. Urine shows no sign of infection. I did just find out that she was placed on Macrobid on Thursday. They had stated they had not seen their family doctor about this but in fact they did see them on Thursday. My independent interpretation of this patient's CT shows overall atrophy but no sign of acute bleed mass or shift. Final reading also shows no acute process and no interval change. My independent interpretation of her single view chest x-ray shows med port in the right chest. But no acute process. Final reading is also no acute. now states that she seems to have these episodes more after taking her meds but he is not sure which 1. They are not sure which was added most recently. But she has been having the symptoms for about a month and a half. I do note that she is on raloxifene. This can cause hot flashes, sweating episodes and flulike syndrome. This is similar to what she has. She states she intermittently feels like she has the flu with chest achiness and shaking. However, her symptoms have been going on for a month and a half. I do not think she requires admission to the hospital. She has 2 work-ups that showed no acute process. I think this can be managed as an outpatient. The thinks this might be anxiety episodes. However, she has no history of anxiety. She does have dementia and may be getting some anxiety with this. We discussed that they should talk with her physician. They wanted to stop medicines. I recommend they not do this until they consult her physician and they can talk with him tomorrow. They also have appointment with the patient's oncologist tomorrow. I recommend they primarily discuss these issues with her primary physician though. Lab Data Attestation: I reviewed the patient's lab results. Labs: Laboratory Results - last 24 hr 03/23/22 03/23/22 03/23/22 18:40 18:40 19:40 WBC 9.7 RBC 4.05 L Hgb 12.7 Hct 38.5 MCV 95.1 MCH 31.4 MCHC 33.0 RDW Std Deviation 46.5 H RDW Coeff of Willie 13.2 Plt Count 335 MPV 11.1 Immature Gran % (Auto) 0.400 Neut % (Auto) 51.0 Lymph % (Auto) 36.9 Traverse % (Auto) 7.9 Eos % (Auto) 3.3 Baso % (Auto) 0.5 Absolute Neuts (auto) 4.9 Absolute Lymphs (auto) 3.58 Nucleated RBC % 0 Sodium 137 Potassium 4.6 Chloride 103 Carbon Dioxide 29.0 Anion Gap 5 BUN 21 H Creatinine 0.93 Estim Creat Clear Calc 48.48 Est GFR (MDRD) Af Amer 76 Est GFR (MDRD) Non-Af 63 BUN/Creatinine Ratio 22.5 H Glucose 100 Calcium 9.1 Total Bilirubin 0.30 AST 23 ALT 26 Alkaline Phosphatase 76 Troponin I High Sens 7 Total Protein 9.0 H Albumin 3.8 Globulin 5.2 H Albumin/Globulin Ratio 0.7 L Urine Color Yellow Urine Clarity Clear Urine pH 6.0 Ur Specific [place] 1.015 Urine Protein 15 H Urine Glucose (UA) Normal Urine Ketones 5 H Urine Occult Blood Negative Urine Nitrite Negative Urine Bilirubin Negative Urine Urobilinogen 1 H Ur Leukocyte Esterase 25 H Urine RBC 0 SEEN Urine WBC 0-5 SEEN Ur Squamous Epith Cells 0-5 SEEN Urine Bacteria RARE Urine Mucus 0 SEEN Radiography Diagnostic Testing: Clinical Impression(s) from Imaging Studies Brain CT 03/23/22 18:36 IMPRESSION: 1. No acute intracranial abnormality. There has been no significant change from the reference exam. 2. Stable underlying senescent change with small vessel ischemia. Electronically Signed: Tito Gutiérrez MD at 19:44 EST , Chest X-Ray 03/23/22 19:15 IMPRESSION: No acute pulmonary abnormality. There has been no change from the reference exam. Electronically Signed: Tito Gutiérrez MD at 19:57 EST , EKG Initial EKG: Comments: My independent interpretation of EKG done for episodic generalized weakness shows a normal sinus rhythm. No ectopy. Mild baseline variation but no acute ST elevation or depression. OH interval, QRS duration and QTc are normal. Discharge Plan Triage Chief Complaint: Hypertension ED Provider: Ferdinand Pollack Dx/Rx/DC Orders Clinical Impression: Episode of generalized weakness Instructions: ED Weakness (Uncertain Cause) Prescriptions: No Action acyclovir 400 MG tablet 400 mg PO BID Centrum Silver Women 1 EACH tablet 1 ea PO DAILY trazodone 50 mg tablet 50 mg PO QHS lisinopril 20 mg tablet 40 mg PO DAILY diphenoxylate-atropine 2.5-0.025 mg tablet 1 tab PO 4X/DAY PRN (Reason: STOOL) meclizine 25 mg tablet 25 mg PO BID PRN (Reason: Dizziness) Label Comments: take 1 tablet by mouth twice a day for dizziness levothyroxine [Synthroid] 125 mcg tablet 125 mcg PO DAILY metoprolol succinate 25 mg tablet extended release 24 hr 25 mg PO DAILY donepezil 10 mg tablet 10 mg PO DAILY oxybutynin chloride 5 mg tablet 5 mg PO BID duloxetine 60 mg capsule,delayed release(DR/EC) 60 mg PO DAILY Viberzi 75 mg tablet 1 tab PO BID omeprazole 20 MG capsule 40 mg PO DAILY Qty: 30 0RF diclofenac sodium [Voltaren] 75 mg Tablet,Delayed Release (Dr/Ec) 75 mg PO BID baclofen 5 mg Tablet 5 mg PO BID acetaminophen [Tylenol] 325 mg Tablet 650 mg PO Q6H PRN (Reason: Pain) potassium chloride [K-Dur] 20 mEq Tablet,Er Particles/Crystals 20 meq PO BID raloxifene 60 mg Tablet 60 mg PO DAILY memantine 5 mg Tablet 5 mg PO DAILY nitrofurantoin monohyd/m-cryst [Macrobid] 100 mg Capsule 100 mg PO BID Rx Instructions: must administer with a meal/food Viberzi 100 mg Tablet 100 mg PO BID Rx Instructions: must administer with a meal/food Primary Care Provider: Addi Elizabeth Referrals: Addi Eilzabeth MD [Primary Care Provider] - As soon as possible Disposition Disposition: Home, Self Care
[2022-03-23 18:46] LABS: Absolute Lymphocyte Count 3.58 X10^3/uL (0.83-4.51); Absolute Neutrophil Count 4.9 X10^3/uL (2.0-7.7); Basophil# 0.05 X10^3/uL; Basophil% 0.5 % (0-1); Eosinophil# 0.32 X10^3/uL; Eosinophils% 3.3 % (0-5); Hematocrit 38.5 % (37-47); Hemoglobin 12.7 g/dL (12.0-15.0); Lymphocyte # 3.58 X10^3/ul (0.83-4.51); Lymphocyte % 36.9 % (19-41); Mean Corpuscular Hgb 31.4 pg (27.0-32.0); Mean Corpuscular Volume 95.1 fL (81-99); Mean Platelet Vol. 11.1 fl (6.2-12.0); Monocyte# 0.77 X10^3/uL; Monocyte% 7.9 % (0-10); NRBC Flagged by Analyzer 0 % (0-5); Neutrophil # 4.93 X10^3/uL (2.7-7.7); Platelet Count 335 K/mm3 (150-450); RBC Distribution Width CV 13.2 % (11.6-14.6); RBC Distribution Width SD 46.5 fl (35.1-43.9); Red Blood Count 4.05 M/mm3 (4.2-5.4); White Blood Count 9.7 K/mm3 (4.4-11.0)
[2022-03-23 19:05] LABS: ALB/GLOB Ratio 0.7 RATIO (0.9-2.4); AST(SGOT) 23 U/L (15-37); Alanine Aminotransfer ALT/SGPT 26 U/L (13-56); Albumin, Serum 3.8 g/dL (3.2-5.0); Alkaline Phosphatase 76 U/L (45-117); Anion Gap 5 (5-15); BUN 21 mg/dL (7-18); BUN/Creat Ratio 22.5 RATIO (10-20); Calcium,Total 9.1 mg/dL (8.5-10.1); Chloride 103 mmol/L (98-107); Creatinine, Serum 0.93 mg/dL (0.55-1.02); EST Glomerular Filtration Rate 63 mL/min (>60); Est Glom Filt Rate - Afr Amer 76 mL/min (>60); Estimated Creatinine Clearance 48.48 ml/min; Globulin 5.2 g/dL (2.2-4.2); Glucose 100 mg/dL (74-106); Potassium 4.6 mmol/L (3.5-5.1); Sodium Level 137 mmol/L (136-145); Troponin-I HS 7 pg/mL (3.0-54.0)
--- NOTE | 2022-03-23 19:15 | RAD_ITS ---
EXAM: XR CHEST, 1 VIEW CLINICAL INDICATION: cough TECHNIQUE: Frontal view of the chest. This report was created using [employer] report generation technology. COMPARISON: 03/14/2022 FINDINGS: LUNGS AND PLEURAL SPACES: Unremarkable. No consolidation or edema. No pneumothorax. No effusion. HEART: Unremarkable. Cardiac silhouette not enlarged. MEDIASTINUM: Central airways and mediastinal contour are unremarkable. BONES/JOINTS: There are degenerative changes in the left shoulder. SOFT TISSUES: Unremarkable. TUBES, LINES AND DEVICES: Right-sided Port-A-Cath in stable position. RAD/Chest 1 View (Portable) IMPRESSION: No acute pulmonary abnormality. There has been no change from the reference exam. Electronically Signed: Tito Gutiérrez MD at 19:57 EST ,
[2022-03-23 19:23] VITALS: BP 197/76; PULSE 63; RESP 15; O2SAT 97
[2022-03-23 19:57] LABS: Mucous, Urine 0 SEEN /hpf (<or=2+); Red Blood Cells-Urine 0 SEEN /hpf (0-5)
[2022-03-23 20:00] LABS: Color, Urine Yellow (Yellow); Glucose, Dipstick Normal (Normal); Ketone-Dipstick 5 mg/dl (Negative); Leukocyte Esterase-Dipstick 25 /ul (Negative); Nitrite-Dipstick Negative (Negative); Occult Blood-Urine Negative /ul (Negative); Protein-Dipstick 15 mg/dl (Negative); Specific Gravity, Urine 1.015 (1.002-1.030); Urine Bilirubin Dipstick Negative (Negative); Urine Clarity Clear (Clear); Urine Urobilinogen 1 mg/dl (Normal)
[2022-03-23 20:11] LABS: Bacteria RARE /hpf (None Seen); Squamous Epithelial Cells - UA 0-5 SEEN /hpf (5-10); White Blood Cells 0-5 SEEN /hpf (0-5)
[2022-03-23 21:19] VITALS: BP 183/80; PULSE 71; RESP 16; O2SAT 95
== END 2022-03-23 21:28 | disposition home or self-care (01) ==
PROVIDERS: Emergency Provider Emergency Medicine; PCP Family Medicine; Visit Provider Emergency Medicine
DX: R53.1 Weakness (principal); F03.90 Unspecified dementia, unspecified severity, without behavioral disturbance, psychotic disturbance, mood disturbance, and anxiety; I10 Essential (primary) hypertension; E78.2 Mixed hyperlipidemia; K21.9 Gastro-esophageal reflux disease without esophagitis; Z20.822 Contact with and (suspected) exposure to COVID-19; F17.290 Nicotine dependence, other tobacco product, uncomplicated; Z79.899 Other long term (current) drug therapy
CPT/HCPCS: 70450; 71045; 80053; 81001; 84484; 85025; 87086; 87428; 93005; 99285

== ENCOUNTER 2022-03-24 18:36 | Emergency (ER) | payer MEDICARE, OTHER, SELFPAY ==
[2022-03-24 18:36] VITALS: BP 135/71; PULSE 107; RESP 18; TEMP 36.1; O2SAT 93; BMI 21.2
[2022-03-24 19:59] VITALS: BP 129/70; PULSE 69; RESP 20; O2SAT 97
[2022-03-24] MEDS: Meclizine HCl 25 MG Tablet PO (20:44)
--- NOTE | 2022-03-24 21:07 | EX.ED.DYSGE1 ---
HPI History of Present Illness Chief Complaint: Dizziness Narrative Narrative: 71-year-old female presenting with episodic dizziness and 1 nausea. She does state that she has a history of this in the past. She does take meclizine twice a day. She states he was here last night with similar symptoms in the emergency room and was discharged home. She states either not new or worsening. He does admit to vomiting 1 time today. No fevers. No urinary symptoms. No chest pain, palpitations, shortness of breath. No nausea or vomiting or abdominal pain. Patient states currently she is asymptomatic. [facility] Medical History Acquired iron deficiency anemia due to decreased absorption Anemia Anxiety and depression Benign paroxysmal positional vertigo Chemotherapy induced nausea and vomiting Chronic pain of both knees Chronic pain of both shoulders Dehydration Dementia without behavioral disturbance Diarrhea Dysuria Elevated fasting blood sugar Essential hypertension GERD (gastroesophageal reflux disease) GERD without esophagitis Hemangioma Herpes History of compression fracture of spine History of shingles HTN (hypertension) Hypercalcemia Hypomagnesemia Hypothyroid Immunodeficiency Irritable bowel syndrome with diarrhea Left ventricular hypertrophy Medication management Mixed hyperlipidemia Multiple myeloma Multiple myeloma in relapse Oral mucosal lesion Osteopenia, senile Port-A-Cath in place Smoker SOB (shortness of breath) Urgency incontinence Urinary frequency Home Medications acyclovir 400 mg tablet 400 mg PO BID 08/16/17 [History Last Taken 09/11/21] multivit with omfurdyr-lbor-WW-lutein 8 mg iron-400 mcg-300 mcg tablet (Centrum Silver Women) 1 ea PO DAILY 08/16/17 [History Last Taken 09/11/21] diphenoxylate-atropine 2.5 mg-0.025 mg tablet 1 tab PO 4X/DAY PRN STOOL 03/07/21 [History Last Taken 09/11/21] levothyroxine 125 mcg tablet (Synthroid) 125 mcg PO DAILY THYROID 03/07/21 [History Last Taken 09/11/21] lisinopril 20 mg tablet 40 mg PO DAILY BP 03/07/21 [History Last Taken 09/10/21] meclizine 25 mg tablet 25 mg PO BID PRN Dizziness 03/07/21 [History Last Taken 09/11/21] metoprolol succinate 25 mg tablet,extended release 24 hr 25 mg PO DAILY HEART 03/07/21 [History Last Taken 09/11/21] trazodone 50 mg tablet 50 mg PO QHS SLEEP 03/07/21 [History Last Taken 09/10/21] donepezil 10 mg tablet 10 mg PO DAILY MEMORY 09/11/21 [History Last Taken 09/11/21] duloxetine 60 mg capsule,delayed release 60 mg PO DAILY MOOD 09/11/21 [History Last Taken 09/11/21] oxybutynin chloride 5 mg tablet 5 mg PO BID BLADDER 09/11/21 [History Last Taken 09/11/21] eluxadoline 75 mg tablet (Viberzi) 1 tab PO BID Check with primary doctor 09/12/21 [History Last Taken Unknown] omeprazole 20 mg capsule,delayed release 40 mg PO DAILY #30 caps 09/12/21 [Rx Last Taken Unknown] acetaminophen 325 mg tablet (Tylenol) 650 mg PO Q6H PRN Pain 03/23/22 [History Last Taken Unknown] baclofen 5 mg tablet 5 mg PO BID 03/23/22 [History Last Taken Unknown] diclofenac sodium 75 mg tablet,delayed release 75 mg PO BID 03/23/22 [History Last Taken Unknown] eluxadoline 100 mg tablet (Viberzi) 100 mg PO BID 03/23/22 [History Last Taken Unknown] memantine 5 mg tablet 5 mg PO DAILY 03/23/22 [History Last Taken Unknown] nitrofurantoin monohydrate/macrocrystals 100 mg capsule (Macrobid) 100 mg PO BID 03/23/22 [History Last Taken Unknown] potassium chloride 20 mEq tablet,extended release(part/cryst) 20 meq PO BID 03/23/22 [History Last Taken Unknown] raloxifene 60 mg tablet 60 mg PO DAILY 03/23/22 [History Last Taken Unknown] meclizine 25 mg tablet 25 mg PO TID #20 tabs 03/24/22 [Rx Last Taken Unknown] Allergy/AdvReac Type Severity Reaction Status Date / Time bupropion [From Wellbutrin] AdvReac Other Verified 03/23/22 18:24 diphenhydramine AdvReac Itching Verified 03/23/22 18:13 [From Benadryl] morphine AdvReac Itching Verified 03/23/22 18:13 Surgical History H/O hernia repair S/P autologous bone marrow transplantation Social History Smoking Status: Current every day smoker tobacco type: e-cigarettes ROS ROS ED ROS Narrative Dizziness Constitutional Constitutional ED: Denies chills or fever(s) Eyes Eyes: Denies change in vision or diplopia ENT ENT ED: Denies rhinorrhea or sore throat Cardiovascular Cardiovascular: Denies chest pain or palpitations Respiratory/Chest Respiratory/Chest: Denies cough or dyspnea Gastrointestinal Gastrointestinal: Reports nausea and vomiting; Denies abdominal pain or constipation Genitourinary Genitourinary ED: Denies dysuria or hematuria Musculoskeletal Musculoskeletal: Denies arthralgias, back pain or myalgias Integumentary Denies abscess Neurologic Neurologic: Denies headache(s) Psychiatric Psychiatric: Denies anxiety or depression EXAM Physical Exam Const Vital Signs: 03/24/22 18:36 03/24/22 19:58 03/24/22 19:59 Temperature 97 F L Temperature Source Temporal Pulse Rate 107 H 69 Respiratory Rate 18 20 H Respiratory Effort Normal Short of Breath Blood Pressure 135/71 H 129/70 H Blood Pressure Mean 92 89 Pulse Ox 93 97 Oxygen Delivery Method Room Air Room Air Positive well nourished General Appearance ED: NAD HEENT Reports moist mucous membranes HEENT Narrative: Positive Frank-Hallpike with nystagmus Eyes PERRL and EOMs intact bilaterally Neck no lymphadenopathy Chest Wall inspection of chest normal and palpation of chest normal Resp normal respiratory effort and clear to auscultation bilaterally Auscultation: Negative for rales, rhonchi or wheezes Cardio regular rate and regular rhythm GI normal to inspection, nondistended, normoactive bowel sounds Extremity normal to inspection Neuro oriented x3 and CN's II-XII intact bilaterally Sensorium / Orientation: alert Motor Exam: strength 5/5 throughout Psych mental status grossly normal Skin no rashes or lesions noted and no wounds MDM MDM MDM Narrative Medical decision making narrative: Patient well-appearing and currently asymptomatic. I was able to reproduce symptoms with Frank-Hallpike. The symptoms resolved almost immediately. I reviewed her blood work from yesterday and it was all normal. She had a normal urinalysis. Vital signs are stable and she is afebrile. Patient does report that she typically takes meclizine twice a day. She requests when here. I do not believe she needs repeat lab work or imaging. We will ambulate her after getting meclizine and assess stability. Patient is ambulated in the halls and walks with a steady gait. She is currently standing at her door requesting to go home. I do believe she does get a work-up since she had one yesterday. She is to continue meclizine at home. Impression: 1. Vertigo 2. Generalized 3. Nausea/vomiting Discharge Plan Triage Chief Complaint: Dizziness ED Provider: Jared Castro Dx/Rx/DC Orders Instructions: ED BPV Vertigo Prescriptions: New meclizine 25 mg tablet 25 mg PO TID Qty: 20 0RF No Action acyclovir 400 MG tablet 400 mg PO BID Centrum Silver Women 1 EACH tablet 1 ea PO DAILY trazodone 50 mg tablet 50 mg PO QHS lisinopril 20 mg tablet 40 mg PO DAILY diphenoxylate-atropine 2.5-0.025 mg tablet 1 tab PO 4X/DAY PRN (Reason: STOOL) meclizine 25 mg tablet 25 mg PO BID PRN (Reason: Dizziness) Label Comments: take 1 tablet by mouth twice a day for dizziness levothyroxine [Synthroid] 125 mcg tablet 125 mcg PO DAILY metoprolol succinate 25 mg tablet extended release 24 hr 25 mg PO DAILY donepezil 10 mg tablet 10 mg PO DAILY oxybutynin chloride 5 mg tablet 5 mg PO BID duloxetine 60 mg capsule,delayed release(DR/EC) 60 mg PO DAILY Viberzi 75 mg tablet 1 tab PO BID omeprazole 20 MG capsule 40 mg PO DAILY Qty: 30 0RF diclofenac sodium [Voltaren] 75 mg Tablet,Delayed Release (Dr/Ec) 75 mg PO BID baclofen 5 mg Tablet 5 mg PO BID acetaminophen [Tylenol] 325 mg Tablet 650 mg PO Q6H PRN (Reason: Pain) potassium chloride [K-Dur] 20 mEq Tablet,Er Particles/Crystals 20 meq PO BID raloxifene 60 mg Tablet 60 mg PO DAILY memantine 5 mg Tablet 5 mg PO DAILY nitrofurantoin monohyd/m-cryst [Macrobid] 100 mg Capsule 100 mg PO BID Rx Instructions: must administer with a meal/food Viberzi 100 mg Tablet 100 mg PO BID Rx Instructions: must administer with a meal/food Primary Care Provider: Addi Elizabeth Referrals: Addi Elizabeth MD [Primary Care Provider] - Disposition Disposition: Home, Self Care
== END 2022-03-24 22:03 | disposition home or self-care (01) ==
PROVIDERS: Emergency Provider Student in an Organized Health Care Education/Training Program; PCP Family Medicine; Visit Provider Student in an Organized Health Care Education/Training Program
DX: R42 Dizziness and giddiness (principal); R11.2 Nausea with vomiting, unspecified; I10 Essential (primary) hypertension; E78.2 Mixed hyperlipidemia; F17.290 Nicotine dependence, other tobacco product, uncomplicated
CPT/HCPCS: 99284; A4216

== ENCOUNTER 2022-06-01 12:04 | Inpatient (IN) | payer MEDICARE, OTHER, SELFPAY ==
[2022-06-01] VITALS (7 sets, daily range): BP systolic 140–158; BP diastolic 64–86; PULSE 63–84; RESP 15–20; TEMP 36.2–36.7; O2SAT 97–99; BMI 23.6
--- NOTE | 2022-06-01 12:29 | ED.VIS.FEGU ---
HPI <CHRISTI lCeaning - Last Filed: 06/01/22 17:18> HPI - Female History of Present Illness Chief Complaint: Complaint Narrative Narrative: 71-year-old female states over the last few days she has had urinary incontinence that worsened today. She has no burning or change in the color or smell of urine. Her states she complained of some abdominal pressure earlier this week but she denies pain now. No back pain. No fever, chills, nausea, or vomiting. They also report over the last few months increased memory issues and poor balance. She is falling frequently. She sometimes uses a walker. She fell 3 times yesterday but denies injuries. No blood thinners. Of note patient has history of multiple myeloma and completed chemotherapy a while ago. [facility] <CHRISTI Cleaning - Last Filed: 06/01/22 17:18> [facility] Medical History Acquired iron deficiency anemia due to decreased absorption Anemia Anxiety and depression Benign paroxysmal positional vertigo Chemotherapy induced nausea and vomiting Chronic pain of both knees Chronic pain of both shoulders Dehydration Dementia without behavioral disturbance Diarrhea Dysuria Elevated fasting blood sugar Essential hypertension GERD (gastroesophageal reflux disease) GERD without esophagitis Hemangioma Herpes History of compression fracture of spine History of shingles HTN (hypertension) Hypercalcemia Hypomagnesemia Hypothyroid Immunodeficiency Irritable bowel syndrome with diarrhea Left ventricular hypertrophy Medication management Mixed hyperlipidemia Multiple myeloma Multiple myeloma in relapse Oral mucosal lesion Osteopenia, senile Port-A-Cath in place Smoker SOB (shortness of breath) Urgency incontinence Urinary frequency Home Medications acyclovir 400 mg tablet 400 mg PO BID INFECTIONS 08/16/17 [History Last Taken 06/01/22] multivit with [id number] 8 mg iron-400 mcg-300 mcg tablet (Centrum Silver Women) 1 ea PO DAILY HEALTH MAINTENANCE 08/16/17 [History Last Taken 06/01/22] diphenoxylate-atropine 2.5 mg-0.025 mg tablet (Lomotil) 1 tab PO 4X/DAY PRN STOOL 03/07/21 [History Last Taken 06/01/22] levothyroxine 125 mcg tablet (Synthroid) 125 mcg PO DAILY THYROID 03/07/21 [History Last Taken 06/01/22] meclizine 25 mg tablet 50 mg PO QHS DIZZINES 03/07/21 [History Last Taken 05/31/22] metoprolol succinate 25 mg tablet,extended release 24 hr 25 mg PO DAILY BLOOD PRESSURE 03/07/21 [History Last Taken 06/01/22] trazodone 50 mg tablet 50 mg PO QHS SLEEP 03/07/21 [History Last Taken 05/31/22] donepezil 10 mg tablet 10 mg PO DAILY MEMORY 09/11/21 [History Last Taken 06/01/22] duloxetine 60 mg capsule,delayed release 60 mg PO DAILY MOOD 09/11/21 [History Last Taken 09/11/21] oxybutynin chloride 5 mg tablet 5 mg PO TID OVERACTIVE BLADDER 09/11/21 [History Last Taken 06/01/22] diclofenac sodium 75 mg tablet,delayed release 75 mg PO BID PAIN 03/23/22 [History Last Taken 06/01/22] eluxadoline 100 mg tablet (Viberzi) 100 mg PO BID IRRITABLE BOWELS 03/23/22 [History Last Taken 06/01/22] memantine 5 mg tablet 5 mg PO QHS MEMORY 03/23/22 [History Last Taken 05/31/22] potassium chloride 20 mEq tablet,extended release(part/cryst) 20 meq PO BID SUPPLEMENT 03/23/22 [History Last Taken 06/01/22] raloxifene 60 mg tablet 60 mg PO DAILY OSTEOPEROSIS 03/23/22 [History Last Taken 06/01/22] lisinopril 10 mg tablet 10 mg PO DAILY BLOOD PRESSURE 06/01/22 [History Last Taken 06/01/22] meclizine 25 mg tablet 25 mg PO DAILY DIZZINESS 06/01/22 [History Last Taken 06/01/22] meclizine 25 mg tablet 25 mg PO LUNCH PRN DIZZINESS 06/01/22 [History Last Taken Unknown] omeprazole 20 mg capsule,delayed release 20 mg PO BID ACID REFLUX 06/01/22 [History Last Taken 06/01/22] Allergy/AdvReac Type Severity Reaction Status Date / Time bupropion [From Wellbutrin] AdvReac Other Verified 06/01/22 12:05 diphenhydramine AdvReac Itching Verified 06/01/22 12:05 [From Benadryl] morphine AdvReac Itching Verified 06/01/22 12:05 Surgical History H/O hernia repair S/P autologous bone marrow transplantation Social History Smoking Status: Current every day smoker tobacco type: cigarettes and e-cigarettes ROS <CHRISTI Cleaning - Last Filed: 06/01/22 17:18> ROS ED ROS Narrative Constitutional: Negative for fever, chills, malaise. CVS: Negative for palpitations, chest pain, syncope. Respiratory: Negative for shortness of breath, cough. GI: Negative for abdominal pain, nausea, vomiting, diarrhea. : Positive for frequency. Negative for dysuria.. Neuro: Negative for headache, motor/sensory dysfunction. Skin: Negative for rash, abscess, or wound. Musc: Negative for joint pain, swelling, trauma. Heme: Negative for easy bruising, bleeding, lymphadenopathy. EXAM <CHRISTI Cleaning - Last Filed: 06/01/22 17:18> Physical Exam Narrative Exam Narrative: CONST: Patient sitting in no acute distress. EYES: Normal inspection. ENT: Normal inspection, moist mucous membranes. NECK: Normal inspection. RESP: No respiratory distress, CTAB. CVS: Regular rate and rhythm, no murmur, no gallop. Chest wall nontender. ABD: Soft and nontender, no guarding or rebound.. Back: Normal inspection, no tenderness of the back. SKIN: Color normal, no rash, warm, dry, intact. EXTREMITIES: Normal appearance, moving upper and lower extremities, no pedal edema. NEURO: Oriented to self, follows commands, face symmetric. PSYCH: Normal affect. Const Vital Signs: 06/01/22 12:05 06/01/22 14:12 06/01/22 15:02 Temperature 98.0 F 97.2 F L 97.6 F L Temperature Source Temporal Oral Temporal Pulse Rate 63 68 69 Respiratory Rate 18 15 16 Blood Pressure 152/86 H 158/64 H 149/77 H Blood Pressure Mean 108 95 101 Pulse Ox 98 97 97 Oxygen Delivery Method Room Air Room Air Room Air 06/01/22 15:00 Temperature 97.9 F Temperature Source Temporal Pulse Rate 69 Respiratory Rate 16 Blood Pressure 149/77 H Blood Pressure Mean 101 Pulse Ox 99 Oxygen Delivery Method Room Air <Dr. Mark Vu DO - Last Filed: 06/01/22 19:53> Physical Exam Const Vital Signs: 06/01/22 12:05 06/01/22 14:12 06/01/22 15:02 Temperature 98.0 F 97.2 F L 97.6 F L Temperature Source Temporal Oral Temporal Pulse Rate 63 68 69 Respiratory Rate 18 15 16 Blood Pressure 152/86 H 158/64 H 149/77 H Blood Pressure Mean 108 95 101 Pulse Ox 98 97 97 Oxygen Delivery Method Room Air Room Air Room Air 06/01/22 15:00 Temperature 97.9 F Temperature Source Temporal Pulse Rate 69 Respiratory Rate 16 Blood Pressure 149/77 H Blood Pressure Mean 101 Pulse Ox 99 Oxygen Delivery Method Room Air MDM <CHRISTI Cleaning - Last Filed: 06/01/22 17:18> MDM MDM Narrative Medical decision making narrative: Patient here with urinary incontinence. Also increasing dementia and recurrent falls. Has been cannot care for her. Having difficulty lifting her as he has hip problems. Patient is awake and alert. Alert and oriented to self. No neurological deficits. No external signs of trauma. No back pain. Labs and urinalysis were obtained. Normal white count of 6.5, mild anemia at 10.0. BMP unremarkable. UA does not show infection but with her symptoms I will culture and treat with IV Rocephin. Due to multiple falls CT scans of the head and neck were obtained and are negative. Family requesting to talk to social work but they are not available today. She will be admitted for evaluation and possible placements. Case was discussed with the hospitalist for admission. Interventions / MDM: Differential diagnosis: Dementia, multiple falls, UTI Diagnosis considered but do not suspect: N/A My EKG interpretation: N/A Imaging independently reviewed and interpreted by myself: CT brain/cervical spine: External documents reviewed: N/A Test considered but not ordered:N/A ED course: Attending note: Patient seen and evaluated with semiconductor wafers saw operator. I perform my own [id number] evaluation. I agree with the plan of work-up. Significant other currently present providing history. History of advanced dementia living at home with him as a primary caregiver. Patient multiple falls in the last month he states at least 6 including 3 yesterday. He said increasing difficulty getting her up yesterday. There is no injuries. Patient typically does not ambulate with any assistance however he states she has been more unsteady. She has been using an extra cane that he has. Patient denies any current symptoms. Patient is on dementia medications currently. No anticoagulants. Presents here for evaluation reporting increasing difficulty taking care of her does not feel he can continue to do this. He is requesting case management. Reporting she is having increasing incontinence of urine in the last 2 days. There is been no fevers. No cough. No vomiting or diarrhea. Exam patient baseline alert to person moving all extremities. There is no signs of head trauma. No back pain. Moving all 4 extremities negative logroll. Patient have labs and urine tested trauma scans head and neck. We will plan for admission for case management and therapy evaluation for likely placement to long-term care. Re-evaluation: Disposition discussed with patient/family/significant other: Significant other Case discussed with consulting clinician: N/A Lab Data Attestation: I reviewed the patient's lab results. Labs: Laboratory Results - last 24 hr 06/01/22 06/01/22 06/01/22 13:10 13:10 14:08 WBC 6.5 RBC 3.21 L Hgb 10.0 L Hct 30.7 L MCV 95.6 MCH 31.2 MCHC 32.6 RDW Std Deviation 47.3 H RDW Coeff of Willie 13.6 Plt Count 275 MPV 9.9 Immature Gran % (Auto) 1.100 H Neut % (Auto) 63.8 Lymph % (Auto) 23.4 [place] % (Auto) 7.7 Eos % (Auto) 3.5 Baso % (Auto) 0.5 Absolute Neuts (auto) 4.2 Absolute Lymphs (auto) 1.52 Nucleated RBC % 0 Sodium 138 Potassium 3.8 Chloride 105 Carbon Dioxide 28.0 Anion Gap 5 BUN 17 Creatinine 0.71 Estim Creat Clear Calc 39.63 Est GFR (MDRD) Af Amer 104 Est GFR (MDRD) Non-Af 86 BUN/Creatinine Ratio 24.0 H Glucose 100 Calcium 9.5 Urine Color Yellow Urine Clarity Clear Urine pH 6.0 Ur Specific [place] 1.020 Urine Protein 15 H Urine Glucose (UA) Normal Urine Ketones 5 H Urine Occult Blood 10 H Urine Nitrite Negative Urine Bilirubin 1 H Urine Urobilinogen 1 H Ur Leukocyte Esterase 25 H Urine RBC 0 SEEN Urine WBC 0-5 SEEN Ur Squamous Epith Cells 0 SEEN Urine Bacteria 0 SEEN Urine Mucus 2+ Radiography Diagnostic Testing: Clinical Impression(s) from Imaging Studies Brain CT 06/01/22 12:38 IMPRESSION: No acute intracranial process identified. Chronic involutional and white matter changes. Osteopenia with numerous small lucencies, question multiple myeloma. Electronically Signed: April Melo MD at 13:53 EDT , Cervical Spine CT 06/01/22 12:38 IMPRESSION: No evidence for acute fracture or dislocation in the cervical spine. Mild degenerative disc disease. Numerous small lucencies from osteopenia, possible multiple myeloma. Electronically Signed: April Melo MD at 13:56 EDT , <Dr. Mark Vu, DO - Last Filed: 06/01/22 19:53> MDM MDM Narrative Medical decision making narrative: Patient here with urinary incontinence. Also increasing dementia and recurrent falls. Has been cannot care for her. Having difficulty lifting her as he has hip problems. Patient is awake and alert. Alert and oriented to self. No neurological deficits. No external signs of trauma. No back pain. Labs and urinalysis were obtained. Normal white count of 6.5, mild anemia at 10.0. BMP unremarkable. UA does not show infection but with her symptoms I will culture and treat with IV Rocephin. Due to multiple falls CT scans of the head and neck were obtained and are negative. Family requesting to talk to social work but they are not available today. She will be admitted for evaluation and possible placements. Case was discussed with the hospitalist for admission. Interventions / MDM: Differential diagnosis: Dementia, multiple falls, UTI Diagnosis considered but do not suspect: N/A My EKG interpretation: N/A Imaging independently reviewed and interpreted by myself: CT brain/cervical spine: No fractures no intracranial hemorrhage also read by radiology. External documents reviewed: N/A Test considered but not ordered:N/A ED course: Attending note: Patient seen and evaluated with semiconductor wafers saw operator. I perform my own [id number] evaluation. I agree with the plan of work-up. Significant other currently present providing history. History of advanced dementia living at home with him as a primary caregiver. Patient multiple falls in the last month he states at least 6 including 3 yesterday. He said increasing difficulty getting her up yesterday. There is no injuries. Patient typically does not ambulate with any assistance however he states she has been more unsteady. She has been using an extra cane that he has. Patient denies any current symptoms. Patient is on dementia medications currently. No anticoagulants. Presents here for evaluation reporting increasing difficulty taking care of her does not feel he can continue to do this. He is requesting case management. Reporting she is having increasing incontinence of urine in the last 2 days. There is been no fevers. No cough. No vomiting or diarrhea. Exam patient baseline alert to person moving all extremities. There is no signs of head trauma. No back pain. Moving all 4 extremities negative logroll. Patient have labs and urine tested trauma scans head and neck. We will plan for admission for case management and therapy evaluation for likely placement to long-term care. Re-evaluation: Stable. Your urine had leukocytes 2+'s. Culture sent. With increasing incontinence per significant other, Rocephin was started. Disposition discussed with patient/family/significant other: Significant other Case discussed with consulting clinician: Hospitalist, Dr. Magallon Lab Data Labs: Laboratory Results - last 24 hr 06/01/22 06/01/22 06/01/22 13:10 13:10 14:08 WBC 6.5 RBC 3.21 L Hgb 10.0 L Hct 30.7 L MCV 95.6 MCH 31.2 MCHC 32.6 RDW Std Deviation 47.3 H RDW Coeff of Willie 13.6 Plt Count 275 MPV 9.9 Immature Gran % (Auto) 1.100 H Neut % (Auto) 63.8 Lymph % (Auto) 23.4 [place] % (Auto) 7.7 Eos % (Auto) 3.5 Baso % (Auto) 0.5 Absolute Neuts (auto) 4.2 Absolute Lymphs (auto) 1.52 Nucleated RBC % 0 Sodium 138 Potassium 3.8 Chloride 105 Carbon Dioxide 28.0 Anion Gap 5 BUN 17 Creatinine 0.71 Estim Creat Clear Calc 39.63 Est GFR (MDRD) Af Amer 104 Est GFR (MDRD) Non-Af 86 BUN/Creatinine Ratio 24.0 H Glucose 100 Calcium 9.5 Urine Color Yellow Urine Clarity Clear Urine pH 6.0 Ur Specific [place] 1.020 Urine Protein 15 H Urine Glucose (UA) Normal Urine Ketones 5 H Urine Occult Blood 10 H Urine Nitrite Negative Urine Bilirubin 1 H Urine Urobilinogen 1 H Ur Leukocyte Esterase 25 H Urine RBC 0 SEEN Urine WBC 0-5 SEEN Ur Squamous Epith Cells 0 SEEN Urine Bacteria 0 SEEN Urine Mucus 2+ Radiography Diagnostic Testing: Clinical Impression(s) from Imaging Studies Brain CT 06/01/22 12:38 IMPRESSION: No acute intracranial process identified. Chronic involutional and white matter changes. Osteopenia with numerous small lucencies, question multiple myeloma. Electronically Signed: April Melo MD at 13:53 EDT , Cervical Spine CT 06/01/22 12:38 IMPRESSION: No evidence for acute fracture or dislocation in the cervical spine. Mild degenerative disc disease. Numerous small lucencies from osteopenia, possible multiple myeloma. Electronically Signed: April Melo MD at 13:56 EDT , Discharge Plan Dx/Rx/DC Orders Clinical Impression: Urinary incontinence, Recurrent falls, Dementia, Acute UTI Disposition Disposition: Acute Care Hospital [facility] Discharge Date/Time: 06/01/22 16:33
--- NOTE | 2022-06-01 12:38 | CT_ITS ---
HISTORY: head injury. TECHNIQUE: Multiple axial images were obtained of the head without intravenous contrast. A radiation dose optimization technique was used for this scan. 227 images. COMPARISON: 03/23/2022. FINDINGS: BRAIN PARENCHYMA: Multiple foci and zones of low attenuation in the bilateral cerebral white matter compatible with chronic small vessel ischemic gliosis. No acute intra-axial hemorrhage identified. CSF SPACES: Moderate generalized volume loss. No midline shift or other significant mass effect. No acute extra-axial hemorrhage seen. OTHER: Osteopenia with multiple small lucencies. Fluid in the sphenoid sinus. Bilateral lens resections. CT/Brain/Head without Contrast IMPRESSION: No acute intracranial process identified. Chronic involutional and white matter changes. Osteopenia with numerous small lucencies, question multiple myeloma. Electronically Signed: April Melo MD at 13:53 EDT ,
--- NOTE | 2022-06-01 12:38 | CT_ITS ---
HISTORY: neck pain. TECHNIQUE: Helically acquired images were obtained of the cervical spine without contrast. 2D reformatted images were reviewed. A radiation dose optimization technique was used for this scan. 420 images. COMPARISON: None. FINDINGS: VERTEBRAE: Vertebral body heights maintained. No acute fracture identified. Numerous small lucencies with osteopenia. ALIGNMENT: No significant anterior or posterior subluxation. Straightening of the cervical lordosis. INTERVERTEBRAL DISCS: Degenerative endplate changes, mild posterior disc bulge osteophyte complexes, and intervertebral disc space narrowing at C5-6 and C6-7. Mild central canal stenosis and bilateral foraminal narrowing. SOFT TISSUES: No prevertebral soft tissue swelling. Right chest wall port identified in the chest. CT/Spine Cervical without Contras IMPRESSION: No evidence for acute fracture or dislocation in the cervical spine. Mild degenerative disc disease. Numerous small lucencies from osteopenia, possible multiple myeloma. Electronically Signed: April Melo MD at 13:56 EDT ,
[2022-06-01 13:18] LABS: Absolute Lymphocyte Count 1.52 X10^3/uL (0.83-4.51); Absolute Neutrophil Count 4.2 X10^3/uL (2.0-7.7); Basophil# 0.03 X10^3/uL; Basophil% 0.5 % (0-1); Eosinophil# 0.23 X10^3/uL; Eosinophils% 3.5 % (0-5); Hematocrit 30.7 % (37-47); Lymphocyte # 1.52 X10^3/ul (0.83-4.51); Lymphocyte % 23.4 % (19-41); Mean Corp Hgb Conc 32.6 g/dL (32-36); Mean Corpuscular Hgb 31.2 pg (27.0-32.0); Mean Corpuscular Volume 95.6 fL (81-99); Mean Platelet Vol. 9.9 fl (6.2-12.0); Monocyte% 7.7 % (0-10); NRBC Flagged by Analyzer 0 % (0-5); Neutrophil # 4.15 X10^3/uL (2.7-7.7); Neutrophil % 63.8 % (47-70); Platelet Count 275 K/mm3 (150-450); RBC Distribution Width CV 13.6 % (11.6-14.6); RBC Distribution Width SD 47.3 fl (35.1-43.9); Red Blood Count 3.21 M/mm3 (4.2-5.4); White Blood Count 6.5 K/mm3 (4.4-11.0)
[2022-06-01 13:34] LABS: Anion Gap 5 (5-15); BUN 17 mg/dL (7-18); Calcium,Total 9.5 mg/dL (8.5-10.1); Chloride 105 mmol/L (98-107); Creatinine, Serum 0.71 mg/dL (0.55-1.02); EST Glomerular Filtration Rate 86 mL/min (>60); Est Glom Filt Rate - Afr Amer 104 mL/min (>60); Estimated Creatinine Clearance 39.63 ml/min; Glucose 100 mg/dL (74-106); Potassium 3.8 mmol/L (3.5-5.1); Sodium Level 138 mmol/L (136-145)
[2022-06-01 14:13] LABS: Bacteria 0 SEEN /hpf (None Seen); Red Blood Cells-Urine 0 SEEN /hpf (0-5); Squamous Epithelial Cells - UA 0 SEEN /hpf (5-10)
[2022-06-01 14:15] LABS: Color, Urine Yellow (Yellow); Glucose, Dipstick Normal (Normal); Ketone-Dipstick 5 mg/dl (Negative); Leukocyte Esterase-Dipstick 25 /ul (Negative); Nitrite-Dipstick Negative (Negative); Occult Blood-Urine 10 /ul (Negative); Protein-Dipstick 15 mg/dl (Negative); Urine Clarity Clear (Clear); Urine Urobilinogen 1 mg/dl (Normal)
[2022-06-01 14:17] LABS: Urine Bilirubin Dipstick 1 mg/dL (Negative)
[2022-06-01 14:27] LABS: Mucous, Urine 2+ /hpf (<or=2+); White Blood Cells 0-5 SEEN /hpf (0-5)
--- NOTE | 2022-06-01 15:00 | HP.PCM.HOS_ITS ---
HPI - General General Date of Admission: 06/01/22 Date of Service: 06/01/22 Chief Complaint: urinary incontinence HPI Narrative RICHARD BERRY, is a 71 F with a PMh as outlined who presents via the ED on 06/01/2022 with a complaint of urinary incontinence which had been going on for some days but worsened on the day of admission. She denied any fever, chills, cough, nausea, vomiting or diarrhea. Family also noted that she was getting weaker and falling more often at home, and had worsening dementia. said he could not care for her anymore at home and wanted to be placed. Vitals in the ED were blood pressure of 158/64, pulse rate of 68, respiratory to 15 and temperature of 97.2 Fahrenheit. She was saturating at 97% on room air. CBC showed WBC of 6.5 with hemoglobin of 10 and platelets of 275. Chemistry was unremarkable and urinalysis showed 25 leukocyte esterase but no evidence of bacteria and WBC. CT of the brain showed no acute intracranial pathology and CT of the cervical spine showed no evidence of acute fracture or dislocation in the cervical spine and mild degenerative disease. There were numerous small luce ncies from osteopenia possibly multiple myeloma. The read. She has been admitted to be managed for probable UTI and debility due to mechanical falls as well as worsening dementia. [facility] Medical History Acquired iron deficiency anemia due to decreased absorption Anemia Anxiety and depression Benign paroxysmal positional vertigo Chemotherapy induced nausea and vomiting Chronic pain of both knees Chronic pain of both shoulders Dehydration Dementia without behavioral disturbance Diarrhea Dysuria Elevated fasting blood sugar Essential hypertension GERD (gastroesophageal reflux disease) GERD without esophagitis Hemangioma Herpes History of compression fracture of spine History of shingles HTN (hypertension) Hypercalcemia Hypomagnesemia Hypothyroid Immunodeficiency Irritable bowel syndrome with diarrhea Left ventricular hypertrophy Medication management Mixed hyperlipidemia Multiple myeloma Multiple myeloma in relapse Oral mucosal lesion Osteopenia, senile Port-A-Cath in place Smoker SOB (shortness of breath) Urgency incontinence Urinary frequency Home Medications acyclovir 400 mg tablet 400 mg PO BID INFECTIONS 08/16/17 [History Last Taken 06/01/22] multivit with [id number]-SG-lutein 8 mg iron-400 mcg-300 mcg tablet (Centrum Silver Women) 1 ea PO DAILY HEALTH MAINTENANCE 08/16/17 [History Last Taken 06/01/22] diphenoxylate-atropine 2.5 mg-0.025 mg tablet (Lomotil) 1 tab PO 4X/DAY PRN STOOL 03/07/21 [History Last Taken 06/01/22] levothyroxine 125 mcg tablet (Synthroid) 125 mcg PO DAILY THYROID 03/07/21 [History Last Taken 06/01/22] meclizine 25 mg tablet 50 mg PO QHS DIZZINES 03/07/21 [History Last Taken 05/31/22] metoprolol succinate 25 mg tablet,extended release 24 hr 25 mg PO DAILY BLOOD PRESSURE 03/07/21 [History Last Taken 06/01/22] trazodone 50 mg tablet 50 mg PO QHS SLEEP 03/07/21 [History Last Taken 05/31/22] donepezil 10 mg tablet 10 mg PO DAILY MEMORY 09/11/21 [History Last Taken 06/01/22] duloxetine 60 mg capsule,delayed release 60 mg PO DAILY MOOD 09/11/21 [History Last Taken 09/11/21] oxybutynin chloride 5 mg tablet 5 mg PO TID OVERACTIVE BLADDER 09/11/21 [History Last Taken 06/01/22] diclofenac sodium 75 mg tablet,delayed release 75 mg PO BID PAIN 03/23/22 [History Last Taken 06/01/22] eluxadoline 100 mg tablet (Viberzi) 100 mg PO BID IRRITABLE BOWELS 03/23/22 [History Last Taken 06/01/22] memantine 5 mg tablet 5 mg PO QHS MEMORY 03/23/22 [History Last Taken 05/31/22] potassium chloride 20 mEq tablet,extended release(part/cryst) 20 meq PO BID SUPPLEMENT 03/23/22 [History Last Taken 06/01/22] raloxifene 60 mg tablet 60 mg PO DAILY OSTEOPEROSIS 03/23/22 [History Last Taken 06/01/22] lisinopril 10 mg tablet 10 mg PO DAILY BLOOD PRESSURE 06/01/22 [History Last Taken 06/01/22] meclizine 25 mg tablet 25 mg PO DAILY DIZZINESS 06/01/22 [History Last Taken 06/01/22] meclizine 25 mg tablet 25 mg PO LUNCH PRN DIZZINESS 06/01/22 [History Last Taken Unknown] omeprazole 20 mg capsule,delayed release 20 mg PO BID ACID REFLUX 06/01/22 [History Last Taken 06/01/22] Allergy/AdvReac Type Severity Reaction Status Date / Time bupropion [From Wellbutrin] AdvReac Other Verified 06/01/22 12:05 diphenhydramine AdvReac Itching Verified 06/01/22 12:05 [From Benadryl] morphine AdvReac Itching Verified 06/01/22 12:05 Surgical History H/O hernia repair S/P autologous bone marrow transplantation Social History Smoking Status: Current every day smoker tobacco type: cigarettes and e- cigarettes ROS Constitutional Constitutional: Reports fatigue, malaise and weakness; Denies anorexia, chills or fever(s) Eyes Eyes: Denies change in vision ENT HEENT: Denies dysphagia, headache(s) or hearing loss Cardiovascular Cardiovascular: Denies chest pain, dyspnea on exertion, edema, lightheadedness or rapid heart rate Respiratory/Chest Respiratory/Chest: Denies cough, dyspnea, shortness of breath at rest or shortness of breath with exertion Gastrointestinal Gastrointestinal: Denies abdominal pain, diarrhea, nausea or vomiting Genitourinary Genitourinary: Denies dysuria Neurologic Neurologic: Reports confusion; Denies dizziness, focal weakness or headache(s) Psychiatric Psychiatric: Denies anxiety Vital Signs Vital Signs Vital Signs: 06/01/22 12:05 06/01/22 14:12 Temperature 98.0 F 97.2 F L Temperature Source Temporal Oral Pulse Rate 63 68 Respiratory Rate 18 15 Blood Pressure 152/86 H 158/64 H Blood Pressure Mean 108 95 Pulse Ox 98 97 Oxygen Delivery Method Room Air Room Air Weight Weight: 129 lb 6.4 oz Body Mass Index (BMI) 23.6 Physical Exam Const alert and no apparent distress HEENT normocephalic, head/scalp atraumatic, hearing grossly normal bilaterally and moist oral mucous membranes Mouth: oral and palatal mucosa normal Eyes PERRL and EOMs intact bilaterally Neck no lymphadenopathy and supple Resp normal respiratory effort, no retractions, no use of accessory muscles and clear to auscultation bilaterally Cardio regular rate, regular rhythm, S1 normal heart sound, S2 normal heart sound and no murmurs GI normal to inspection, nondistended, normoactive bowel sounds, soft to palpation, non-tender and non-distended Extremity normal to inspection, full ROM and no clubbing, cyanosis or edema Neuro CN's II-XII intact bilaterally, moves all extremities and no focal motor deficits Sensorium / Orientation: awake and alert Motor Exam: strength 5/5 throughout Results Lab / Micro Data Result Diagrams: 06/02/22 03:50 06/02/22 03:50 Labs: Laboratory Results - last 24 hr 06/01/22 13:10: WBC 6.5, RBC 3.21 L, Hgb 10.0 L, Hct 30.7 L, MCV 95.6, MCH 31.2, MCHC 32.6, RDW Std Deviation 47.3 H, RDW Coeff of Willie 13.6, Plt Count 275, MPV 9.9, Immature Gran % (Auto) 1.100 H, Neut % (Auto) 63.8, Lymph % (Auto) 23.4, [place] % (Auto) 7.7, Eos % (Auto) 3.5, Baso % (Auto) 0.5, Absolute Neuts (auto) 4.2, Absolute Lymphs (auto) 1.52, Nucleated RBC % 0 06/01/22 13:10: Sodium 138, Potassium 3.8, Chloride 105, Carbon Dioxide 28.0, Anion Gap 5, BUN 17, Creatinine 0.71, Estim Creat Clear Calc 39.63, Est GFR (MDRD) Af Amer 104, Est GFR (MDRD) Non-Af 86, BUN/Creatinine Ratio 24.0 H, Glucose 100, Calcium 9.5 06/01/22 14:08: Urine Color Yellow, Urine Clarity Clear, Urine pH 6.0, Ur Specific [place] 1.020, Urine Protein 15 H, Urine Glucose (UA) Normal, Urine Ketones 5 H, Urine Occult Blood 10 H, Urine Nitrite Negative, Urine Bilirubin 1 H, Urine Urobilinogen 1 H, Ur Leukocyte Esterase 25 H, Urine RBC 0 SEEN, Urine WBC 0-5 SEEN, Ur Squamous Epith Cells 0 SEEN, Urine Bacteria 0 SEEN, Urine Mucus 2+ Radiology Impression Brain CT 06/01/22 12:38 IMPRESSION: No acute intracranial process identified. Chronic involutional and white matter changes. Osteopenia with numerous small lucencies, question multiple myeloma. Electronically Signed: April Melo MD at 13:53 EDT , Cervical Spine CT 06/01/22 12:38 IMPRESSION: No evidence for acute fracture or dislocation in the cervical spine. Mild degenerative disc disease. Numerous small lucencies from osteopenia, possible multiple myeloma. Electronically Signed: April Melo MD at 13:56 EDT , Assessment & Plan Assessment/Plan (1) UTI (urinary tract infection): (2) Debility: PLAN: Plan #Urinary incontinence due to probable UTI * Admit to [facility]. Patient has had incontinence but this has been worsening. * Urinalysis did not really show evidence of UTI. However in light of symptoms we will treat for presumptive UTI and started on IV ceftriaxone. * Urine cultures ordered. * Hydrate gently with IV fluids. * #Debility due to mechanical falls * CT of the brain showed no acute intracranial pathology and CT of the cervical spine showed no evidence of acute fracture or dislocation and showed mild degenerative disc disease with numerous small lucencies from possible multiple myeloma * Consult PT OT. Fall precautions. * #Dementia: On donepezil and memantine #Hypothyroidism: On Synthroid #Hypertension: On lisinopril and metoprolol #History of multiple myeloma * diagnosed in 2009. Per she has undergone several rounds of chemotherapy * stable * to follow up with oncologist on outpatient basis * DVT prophylaxis: SCDs in light of frequent falls CODE STATUS:DNRCCA Patient and counseled extensively about different types of CODE STATUS including full code, DNR CCA and DNR CCA. Patient elects to be DNRCCA no intubation. Total [id number] time 17 minutes. Total time spent on evaluation and management of patient, reviewing chart and specialist notes, discussing plan with patient and his , discussion with nursing and ancillary staff as well as documentation: 72 mins Charges/Coding Visit Charges Inpatient E&M: 36693 Init Hosp L2 Procedures Hospitalists Procedures: 80864 Advncd Care Plan 30 Min
--- NOTE | 2022-06-01 15:10 | NURSING ---
MED SURG OBS KORAM RECURRENT FALLS
[2022-06-01] MEDS: Ceftriaxone 1 GM/50 ML BAG IV (15:14)
[2022-06-01] MEDS: 0.9% Normal Saline 1,000 ML 125 ML IV (17:53)
[2022-06-01] MEDS: 0.9% Saline Lock 10 ML Syringe IV (17:53)
[2022-06-01] MEDS: Acyclovir 200 MG Capsule 400 MG PO (22:27)
[2022-06-01] MEDS: Memantine Hydrochloride 5 MG Tablet PO (22:28)
[2022-06-01] MEDS: traZODone 50 MG Tablet PO (22:28)
[2022-06-01] MEDS: Pantoprazole Sodium 20 MG Tablet PO (22:28)
[2022-06-01] MEDS: Oxybutynin 5 MG Tablet PO (22:28)
[2022-06-01] MEDS: Meclizine HCl 25 MG Tablet 50 MG PO (22:29)
[2022-06-02] VITALS (8 sets, daily range): BP systolic 146–173; BP diastolic 73–97; PULSE 72–100; RESP 14–20; TEMP 36.6–37; O2SAT 85–96
[2022-06-02] MEDS: 0.9% Normal Saline 1,000 ML 125 ML IV (01:54)
[2022-06-02 05:03] LABS: Absolute Lymphocyte Count 1.54 X10^3/uL (0.83-4.51); Absolute Neutrophil Count 3.8 X10^3/uL (2.0-7.7); Basophil# 0.04 X10^3/uL; Basophil% 0.7 % (0-1); Eosinophil# 0.25 X10^3/uL; Eosinophils% 4.1 % (0-5); Hemoglobin 10.4 g/dL (12.0-15.0); Lymphocyte # 1.54 X10^3/ul (0.83-4.51); Lymphocyte % 25.1 % (19-41); Mean Corp Hgb Conc 32.5 g/dL (32-36); Mean Corpuscular Hgb 31.6 pg (27.0-32.0); Mean Corpuscular Volume 97.3 fL (81-99); Mean Platelet Vol. 10.4 fl (6.2-12.0); Monocyte# 0.44 X10^3/uL; Monocyte% 7.2 % (0-10); NRBC Flagged by Analyzer 0 % (0-5); Neutrophil % 61.9 % (47-70); Platelet Count 297 K/mm3 (150-450); RBC Distribution Width CV 13.7 % (11.6-14.6); RBC Distribution Width SD 48.9 fl (35.1-43.9); Red Blood Count 3.29 M/mm3 (4.2-5.4); White Blood Count 6.1 K/mm3 (4.4-11.0)
[2022-06-02 05:34] LABS: Anion Gap 5 (5-15); BUN 10 mg/dL (7-18); BUN/Creat Ratio 14.6 RATIO (10-20); Calcium,Total 9.3 mg/dL (8.5-10.1); Chloride 107 mmol/L (98-107); Creatinine, Serum 0.69 mg/dL (0.55-1.02); EST Glomerular Filtration Rate 89 mL/min (>60); Est Glom Filt Rate - Afr Amer 108 mL/min (>60); Estimated Creatinine Clearance 39.63 ml/min; Glucose 91 mg/dL (74-106); Potassium 3.6 mmol/L (3.5-5.1); Sodium Level 141 mmol/L (136-145)
[2022-06-02] MEDS: Oxybutynin 5 MG Tablet PO ×3 (06:12→19:55)
[2022-06-02] MEDS: Levothyroxine 125 MCG Tablet PO (06:12)
[2022-06-02] MEDS: Potassium Chloride Oral Tablet 20 MEQ PO ×2 (08:53→17:16)
[2022-06-02] MEDS: Acyclovir 200 MG Capsule 400 MG PO ×2 (08:54→19:55)
[2022-06-02] MEDS: DULoxetine Hcl 60 MG Capsule PO (08:54)
[2022-06-02] MEDS: Pantoprazole Sodium 20 MG Tablet PO ×2 (08:54→19:55)
[2022-06-02] MEDS: Meclizine HCl 25 MG Tablet PO (08:55)
[2022-06-02] MEDS: Donepezil HCl 10 MG Tablet PO (08:55)
[2022-06-02] MEDS: Multivitamins,Ther W-Minerals Tablet 1 TABLET PO (08:56)
[2022-06-02] MEDS: Metoprolol(XL)Succ 25 MG Tablet PO (08:56)
[2022-06-02] MEDS: Lisinopril 10 MG Tablet PO (08:56)
[2022-06-02] MEDS: Raloxifene HCl 60 MG Tablet PO (08:57)
[2022-06-02] MEDS: Diclofenac 75 MG Tablet PO ×2 (10:16→17:16)
[2022-06-02] MEDS: Ceftriaxone 1 GM/50 ML BAG IV (10:16)
--- NOTE | 2022-06-02 11:36 | PN_ITS ---
Subjective Subjective Patient seen and examined. She had no active complaints today and had an uneventful night. She denies any fever, chills, cough, chest pain, palpitations, dizziness, nausea, vomiting or diarrhea. REview of systems is otherwise negative. Objective Data Objective Data Vital Signs: Vital Signs Temp Pulse Resp BP Pulse Ox O2 Del Method O2 Flow Rate 98.2 F 100 16 154/81 H 95 Nasal Cannula 2 06/02/22 10:31 06/02/22 10:31 06/02/22 10:31 06/02/22 10:31 06/02/22 10:31 06/02/22 10:31 06/02/22 10:31 Oxygen Flow Rate (L/min) 2 Oxygen Delivery Method Nasal Cannula Weight: 129 lb 6.4 oz Body Mass Index (BMI) 23.6 Intake & Output: Intake and Output for Last 24 Hours 05/31/22 06/01/22 06/02/22 23:59 23:59 23:59 Intake Total 700 / 700 2049 / 2049 Output Total 150 / 150 Balance 700 / 550 1900 / 1900 Lab / Micro Data Result Diagrams: 06/02/22 03:50 06/02/22 03:50 Labs: Laboratory Results - last 24 hr 06/01/22 13:10: WBC 6.5, RBC 3.21 L, Hgb 10.0 L, Hct 30.7 L, MCV 95.6, MCH 31.2, MCHC 32.6, RDW Std Deviation 47.3 H, RDW Coeff of Willie 13.6, Plt Count 275, MPV 9.9, Immature Gran % (Auto) 1.100 H, Neut % (Auto) 63.8, Lymph % (Auto) 23.4, [place] % (Auto) 7.7, Eos % (Auto) 3.5, Baso % (Auto) 0.5, Absolute Neuts (auto) 4.2, Absolute Lymphs (auto) 1.52, Nucleated RBC % 0 06/01/22 13:10: Sodium 138, Potassium 3.8, Chloride 105, Carbon Dioxide 28.0, Anion Gap 5, BUN 17, Creatinine 0.71, Estim Creat Clear Calc 39.63, Est GFR (MDRD) Af Amer 104, Est GFR (MDRD) Non-Af 86, BUN/Creatinine Ratio 24.0 H, Glucose 100, Calcium 9.5 03/19/23 14:08: Urine Color Yellow, Urine Clarity Clear, Urine pH 6.0, Ur Specific [place] 1.020, Urine Protein 15 H, Urine Glucose (UA) Normal, Urine Ketones 5 H, Urine Occult Blood 10 H, Urine Nitrite Negative, Urine Bilirubin 1 H, Urine Urobilinogen 1 H, Ur Leukocyte Esterase 25 H, Urine RBC 0 SEEN, Urine WBC 0-5 SEEN, Ur Squamous Epith Cells 0 SEEN, Urine Bacteria 0 SEEN, Urine Mucus 2+ 06/02/22 03:50: WBC 6.1, RBC 3.29 L, Hgb 10.4 L, Hct 32.0 L, MCV 97.3, MCH 31.6, MCHC 32.5, RDW Std Deviation 48.9 H, RDW Coeff of Willie 13.7, Plt Count 297, MPV 10.4, Immature Gran % (Auto) 1.000 H, Neut % (Auto) 61.9, Lymph % (Auto) 25.1, [place] % (Auto) 7.2, Eos % (Auto) 4.1, Baso % (Auto) 0.7, Absolute Neuts (auto) 3.8, Absolute Lymphs (auto) 1.54, Nucleated RBC % 0 06/02/22 03:50: Sodium 141, Potassium 3.6, Chloride 107, Carbon Dioxide 29.0, Anion Gap 5, BUN 10, Creatinine 0.69, Estim Creat Clear Calc 39.63, Est GFR (MDRD) Af Amer 108, Est GFR (MDRD) Non-Af 89, BUN/Creatinine Ratio 14.6, Glucose 91, Calcium 9.3 Micro: Microbiology 06/01/22 14:08 Urine, Random Urine Culture - Preliminary Culture exhibits no growth. Radiography Diagnostic Testing: Radiology Impression Brain CT 06/01/22 12:38 IMPRESSION: No acute intracranial process identified. Chronic involutional and white matter changes. Osteopenia with numerous small lucencies, question multiple myeloma. Electronically Signed: April Melo MD at 13:53 EDT , Cervical Spine CT 06/01/22 12:38 IMPRESSION: No evidence for acute fracture or dislocation in the cervical spine. Mild degenerative disc disease. Numerous small lucencies from osteopenia, possible multiple myeloma. Electronically Signed: April Melo MD at 13:56 EDT , Physical Exam Const alert and no apparent distress HEENT normocephalic, head/scalp atraumatic, hearing grossly normal bilaterally and moist oral mucous membranes Eyes PERRL and EOMs intact bilaterally Neck no lymphadenopathy and supple Resp normal respiratory effort, normal air movement, no retractions, no use of accessory muscles and clear to auscultation bilaterally Cardio regular rate, regular rhythm, S1 normal heart sound, S2 normal heart sound and no murmurs GI normal to inspection, nondistended, normoactive bowel sounds, soft to palpation, non-tender and non-distended Extremity normal to inspection, full ROM, normal capillary refill and no clubbing, cyano sis or edema Skin General Skin Exam: no breakdown Neuro CN's II-XII intact bilaterally, moves all extremities and no focal motor deficits Sensorium / Orientation: awake and alert Motor Exam: strength 5/5 throughout Assessment & Plan Assessment/Plan (1) UTI (urinary tract infection): (2) Debility: PLAN: Plan #Urinary incontinence due to probable UTI * still complains of incontinence * Urinalysis did not really show evidence of UTI. However in light of symptoms we will treat for presumptive UTI and started on IV ceftriaxone. * Urine cultures pending * Hydrated gently with IV fluids. * #Debility due to mechanical falls * CT of the brain showed no acute intracranial pathology and CT of the cervical spine showed no evidence of acute fracture or dislocation and showed mild degenerative disc disease with numerous small lucencies from possible multiple myeloma * Consult PT OT. Fall precautions. * #Dementia: On donepezil and memantine #Hypothyroidism: On Synthroid #Hypertension: On lisinopril and metoprolol #History of multiple myeloma * diagnosed in 2009. Per she has undergone several rounds of chemotherapy * stable * to follow up with oncologist on outpatient basis * DVT prophylaxis: SCDs in light of frequent falls CODE STATUS: DNRCCA no intubation Charges/Coding Visit Charges Inpatient E&M: 61018 Subs Hosp L2
--- NOTE | 2022-06-02 11:40 | CASEMGMT ---
Social Work Therapy reported to SW that pt is not in need of skilled level of care at SNF as pt ambulates well on own. SW in to pt room to discuss with pt and . Pt did present with confusion, however, pt was moving well. Pt does not feel able to care for pt at home due to mental status of pt. SW explained therapy not recommending a skilled level of care so pt would need to go to SNF under private pay if that is what wants. asked questions relating to pay options and SW explained that can work with S to obtain Medicaid. asked for resources on this and SW supplied JFS contact, Medicaid application and a brochure for [employer] to assist with Longterm options and advisement. Pt voiced understanding regarding these options and stated would look in to what options there are for pt. PLAN: Home Katelynn Rehman
--- NOTE | 2022-06-02 15:21 | CHAPLAIN ---
Type of Pastoral Visit _x__ Initial Visit ___ Follow-up Visit ___ On-call Visit ___ General Patient Visit ___ Spiritual Assessment ___ Family Conference ___ Bereavement ___ Rapid Response ___ Code Blue ___ Other (describe below) Pastoral Care Referral From _x__ Patient ___ Family ___ Nurse ___ Physician ___ Bottom Stop Attacher ___ Senior Sales Operations Manager ___ Other (describe below) Sacrament/Intervention _x__ Active listening ___ Anointing ___ Protestant ___ Bereavement ___ Communion ___ Soraida exploration ___ _x__ Life review _x__ Prayer ___ Reconciliation ___ Sacrament of Sick _x__ Supportive presence ___ Wedding ___ Other (describe below) Pastoral Comments patient is welcoming and talkative; pt conversation goes to some negative expressions which are listened to and respected but not necessarily fully believed due to some apparent confusion; patient given presence and prayer
--- NOTE | 2022-06-02 15:37 | CASEMGMT ---
Social Work SW spoke to pt as pt is confused. shared unsure if pt has LW/HCPOA. does not think so. SW explained would be legal decision maker and voiced understanding and shared has been making all decisions for pt for several years with no help from family. Katelynn Rehman, JEY
--- NOTE | 2022-06-02 16:00 | CASEMGMT ---
ORACIO PALM DC Planning Assessment: Face to Face with patient for initial transition planning/care coordination assessment. Pt alert, noted pt to have a hx of dementia, however pt appropriately answering questions at this time. No family at bedside at this time. ORACIO PALM introduced self and role at [facility], pt voices understanding. Care providers, pharmacy, and demographics verified. Admitting Dx: UTI, debility PCP: Clara Specialists: [place] (pt recalled Dr. Priest recently went overse[place]) Preferred Pharmacy: [facility] Insurance: yes Prescription Benefit: yes Living Will/HPOA: none LNOK: spouse Baltazar Living Arrangements: Pt resides with her spouse in a two story home with a first floor set-up and 2 steps to enter. Pt states she is independent with ADLs and spouse completes household tasks or they hire others to assist as needed. Transportation: spouse drives DME: shower chair, grab bars, handheld shower, raised toilet seat, cane, walker, rollator, pulse oximeter SNF/HHC: pt denies any previous providers. Plan: Pt states her and her are in the process of transitioning to assisted living and she does not qualify for [facility] home so they are looking into medicaid. Noted SW had previous conversation with pt's spouse on this date re: the same so will not corroborate assessment information at this time. Ghanshyam Owens RN CM
[2022-06-02] MEDS: Meclizine HCl 25 MG Tablet 50 MG PO (19:55)
[2022-06-02] MEDS: Memantine Hydrochloride 5 MG Tablet PO (19:55)
[2022-06-02] MEDS: traZODone 50 MG Tablet PO (19:55)
[2022-06-03 02:51] VITALS: BP 197/99; PULSE 60; RESP 16; TEMP 36.8; O2SAT 96
[2022-06-03 04:02] VITALS: PULSE 60
[2022-06-03] MEDS: hydrALAZINE 20 MG/ML Vial 10 MG IV (04:02)
[2022-06-03] MEDS: 0.9% Saline Lock 10 ML Syringe IV ×2 (04:02→10:42)
[2022-06-03] MEDS: Lisinopril 40 MG Tablet PO (06:16)
[2022-06-03] MEDS: Oxybutynin 5 MG Tablet PO (06:16)
[2022-06-03] MEDS: Levothyroxine 125 MCG Tablet PO (06:16)
[2022-06-03 06:20] VITALS: BP 170/92; O2SAT 98
[2022-06-03 06:54] LABS: Absolute Lymphocyte Count 1.49 X10^3/uL (0.83-4.51); Basophil# 0.04 X10^3/uL; Basophil% 0.4 % (0-1); Eosinophil# 0.22 X10^3/uL; Eosinophils% 2.4 % (0-5); Hematocrit 34.4 % (37-47); Hemoglobin 11.4 g/dL (12.0-15.0); Lymphocyte # 1.49 X10^3/ul (0.83-4.51); Mean Corp Hgb Conc 33.1 g/dL (32-36); Mean Corpuscular Hgb 31.7 pg (27.0-32.0); Mean Corpuscular Volume 95.6 fL (81-99); Mean Platelet Vol. 9.4 fl (6.2-12.0); Monocyte# 0.48 X10^3/uL; Monocyte% 5.2 % (0-10); NRBC Flagged by Analyzer 0 % (0-5); Neutrophil # 6.99 X10^3/uL (2.7-7.7); Neutrophil % 74.9 % (47-70); Platelet Count 288 K/mm3 (150-450); RBC Distribution Width CV 13.6 % (11.6-14.6); RBC Distribution Width SD 47.9 fl (35.1-43.9); White Blood Count 9.3 K/mm3 (4.4-11.0)
[2022-06-03 07:29] LABS: Anion Gap 6 (5-15); BUN 9 mg/dL (7-18); BUN/Creat Ratio 13.8 RATIO (10-20); Calcium,Total 9.6 mg/dL (8.5-10.1); Chloride 106 mmol/L (98-107); Creatinine, Serum 0.65 mg/dL (0.55-1.02); EST Glomerular Filtration Rate 94 mL/min (>60); Est Glom Filt Rate - Afr Amer 114 mL/min (>60); Estimated Creatinine Clearance 39.63 ml/min; Glucose 101 mg/dL (74-106); Potassium 3.2 mmol/L (3.5-5.1); Sodium Level 138 mmol/L (136-145)
[2022-06-03] MEDS: Potassium Chloride Oral Tablet 20 MEQ PO (07:43)
[2022-06-03] MEDS: Multivitamins,Ther W-Minerals Tablet 1 TABLET PO (07:43)
[2022-06-03] MEDS: Diclofenac 75 MG Tablet PO (07:43)
[2022-06-03 07:44] VITALS: PULSE 60
[2022-06-03] MEDS: Meclizine HCl 25 MG Tablet PO (07:44)
[2022-06-03] MEDS: Pantoprazole Sodium 20 MG Tablet PO (07:44)
[2022-06-03] MEDS: Acyclovir 200 MG Capsule 400 MG PO (07:44)
[2022-06-03] MEDS: DULoxetine Hcl 60 MG Capsule PO (07:44)
[2022-06-03] MEDS: Donepezil HCl 10 MG Tablet PO (07:44)
[2022-06-03] MEDS: Raloxifene HCl 60 MG Tablet PO (07:44)
[2022-06-03] MEDS: Metoprolol(XL)Succ 25 MG Tablet PO (07:44)
[2022-06-03 08:00] VITALS: BP 156/92; PULSE 86; RESP 18; TEMP 36.7; O2SAT 95
--- NOTE | 2022-06-03 09:21 | DS.PCM_ITS ---
Providers Date of Admission: 06/01/22 Date of Discharge: 06/03/22 Primary Care Physician: Dr. Addi Elizabeth MD Reason For Visit: UTI, DEBILITY Diagnosis Discharge Diagnosis (1) UTI (urinary tract infection): Status: Acute Code(s): N39.0 - Urinary tract infection, site not specified (2) Debility: Status: Acute Code(s): R53.81 - Other malaise Plan #Urinary incontinence due to probable UTI * Admit to [facility]. Patient has had incontinence but this has been worsening. * Urinalysis did not really show evidence of UTI. However in light of symptoms we will treat for presumptive UTI and started on IV ceftriaxone. * Urine cultures ordered. * Hydrate gently with IV fluids. * #Debility due to mechanical falls * CT of the brain showed no acute intracranial pathology and CT of the cervical spine showed no evidence of acute fracture or dislocation and showed mild degenerative disc disease with numerous small lucencies from possible multiple myeloma * Consult PT OT. Fall precautions. * #Dementia: On donepezil and memantine #Hypothyroidism: On Synthroid #Hypertension: On lisinopril and metoprolol #History of multiple myeloma * diagnosed in 2009. Per she has undergone several rounds of chemotherapy * stable * to follow up with oncologist on outpatient basis * DVT prophylaxis: SCDs in light of frequent falls CODE STATUS:DNRCCA Patient and counseled extensively about different types of CODE STATUS including full code, DNR CCA and DNR CCA. Patient elects to be DNRCCA no intubation. Total xaxy-mv-osgl time 17 minutes. Total time spent on evaluation and management of patient, reviewing chart and specialist notes, discussing plan with patient and his , discussion with nursing and ancillary staff as well as documentation: 72 mins Medications at Discharge Home Medications acyclovir 400 mg tablet 400 mg PO BID INFECTIONS 08/16/17 multivit with ymldvips-fdhx-UR-lutein 8 mg iron-400 mcg-300 mcg tablet (Centrum Silver Women) 1 ea PO DAILY HEALTH MAINTENANCE 08/16/17 diphenoxylate-atropine 2.5 mg-0.025 mg tablet (Lomotil) 1 tab PO 4X/DAY PRN STOOL 03/07/21 levothyroxine 125 mcg tablet (Synthroid) 125 mcg PO DAILY THYROID 03/07/21 meclizine 25 mg tablet 50 mg PO QHS DIZZINES 03/07/21 metoprolol succinate 25 mg tablet,extended release 24 hr 25 mg PO DAILY BLOOD PRESSURE 03/07/21 trazodone 50 mg tablet 50 mg PO QHS SLEEP 03/07/21 donepezil 10 mg tablet 10 mg PO DAILY MEMORY 09/11/21 duloxetine 60 mg capsule,delayed release 60 mg PO DAILY MOOD 09/11/21 oxybutynin chloride 5 mg tablet 5 mg PO TID OVERACTIVE BLADDER 09/11/21 diclofenac sodium 75 mg tablet,delayed release 75 mg PO BID PAIN 03/23/22 eluxadoline 100 mg tablet (Viberzi) 100 mg PO BID IRRITABLE BOWELS 03/23/22 memantine 5 mg tablet 5 mg PO QHS MEMORY 03/23/22 potassium chloride 20 mEq tablet,extended release(part/cryst) 20 meq PO BID SUPP LEMENT 03/23/22 raloxifene 60 mg tablet 60 mg PO DAILY OSTEOPEROSIS 03/23/22 meclizine 25 mg tablet 25 mg PO DAILY DIZZINESS 06/01/22 meclizine 25 mg tablet 25 mg PO LUNCH PRN DIZZINESS 06/01/22 omeprazole 20 mg capsule,delayed release 20 mg PO BID ACID REFLUX 06/01/22 lisinopril 40 mg tablet 40 mg PO DAILY blood pressure 06/03/22 Hospital Course Operations None Summary of Care Provided Minutes Spent on Discharge: 48 Hospital Course: RICHARD BERRY, is a 71 F with a PMh as outlined who presents via the ED on 06/01/2022 with a complaint of urinary incontinence which had been going on for some days but worsened on the day of admission. She denied any fever, chills, cough, nausea, vomiting or diarrhea. Family also noted that she was getting weaker and falling more often at home, and had worsening dementia.? said he could not care for her anymore at home and wanted to be placed. Vitals in the ED were blood pressure of 158/64, pulse rate of 68, respiratory to 15 and temperature of 97.2 Fahrenheit.? She was saturating at 97% on room air.? CBC showed WBC of 6.5 with hemoglobin of 10 and platelets of 275.? Chemistry was unremarkable and urinalysis showed 25 leukocyte esterase but no evidence of bacteria and WBC.? CT of the brain showed no acute intracranial pathology and CT of the cervical spine showed no evidence of acute fracture or dislocation in the cervical spine and mild degenerative disease.? There were numerous small lucencies from osteopenia possibly multiple myeloma.? The read.? She was admitted to be managed for probable UTI and debility due to mechanical falls as well as worsening dementia. She was hydrated and started on IV ceftriaxone. Urine cultures were negative. Patient had not had hoped for her to be placed in assisted living or skilled facility. However therapy worked with her and did not think that she required this and so they would have had to pay [id number] to go to skilled nursing or assisted living facility. opted to take patient home. Her urine culture was negative so antibiotics were discontinued. She was discharged home on 06/03/2022. She is to follow up with her PCP within 1-2 weeks. Patient was seen and examined prior to discharge. She had no complaints but subsequently became tearful but she could not tell me why she was tearful. Review of systems otherwise negative. Labs and vitals reviewed. Home medication reviewed and reconciled. Physical Exam Const alert and no apparent distress General Appearance: cooperative and comfortable Orientation / Consciousness: awake Exam Limitations: no limitations HEENT normocephalic, head/scalp atraumatic, hearing grossly normal bilaterally and moist oral mucous membranes Mouth: oral and palatal mucosa normal Eyes PERRL and EOMs intact bilaterally Neck no lymphadenopathy and supple Resp normal respiratory effort, normal air movement, no retractions, no use of acce ssory muscles and clear to auscultation bilaterally Cardio regular rate, regular rhythm, S1 normal heart sound, S2 normal heart sound and no murmurs GI normal to inspection, nondistended, normoactive bowel sounds, soft to palpation, non-tender and non-distended Extremity normal to inspection, full ROM, normal capillary refill and no clubbing, cyanosis or edema Skin no rashes or lesions noted General Skin Exam: no breakdown Neuro oriented x3, CN's II-XII intact bilaterally, moves all extremities and no focal motor deficits Sensorium / Orientation: awake and alert Motor Exam: strength 5/5 throughout Psych Psych Narrative: tearful Weight / BMI Weight Weight: 129 lb 6.4 oz Body Mass Index (BMI) 23.6 ABG / Lab / Microbiology Data Result Diagrams: 06/03/22 06:49 06/03/22 06:49 Laboratory: Laboratory Results - last 24 hr 06/03/22 06:49: WBC 9.3, RBC 3.60 L, Hgb 11.4 L, Hct 34.4 L, MCV 95.6, MCH 31.7, MCHC 33.1, RDW Std Deviation 47.9 H, RDW Coeff of Willie 13.6, Plt Count 288, MPV 9.4, Immature Gran % (Auto) 1.100 H, Neut % (Auto) 74.9 H, Lymph % (Auto) 16.0 L , [place] % (Auto) 5.2, Eos % (Auto) 2.4, Baso % (Auto) 0.4, Absolute Neuts (auto) 7.0, Absolute Lymphs (auto) 1.49, Nucleated RBC % 0 06/03/22 06:49: Sodium 138, Potassium 3.2 L, Chloride 106, Carbon Dioxide 26.0, Anion Gap 6, BUN 9, Creatinine 0.65, Estim Creat Clear Calc 39.63, Est GFR (MDRD) Af Amer 114, Est GFR (MDRD) Non-Af 94, BUN/Creatinine Ratio 13.8, Glucose 101, Calcium 9.6 Microbiology: Microbiology 06/01/22 14:08 Urine, Random Urine Culture - Final Culture exhibits no growth. D/C Instructions Discharge Diet: Low fat / Low cholesterol Weight Bearing Status: Weight bearing as tolerated Call your doctor if you observe: Fever of 101 or Higher, Shortness of breath, Dizziness and Chest pain Meaningful Use Info Meaningful Use Diagnoses (Choose all that apply): None applicable Discharge Plan Admission Admit Date/Time: 06/01/22 15:11 Primary Reason for Your Visit: debility, weakness Attending Provider: Jazz Magallon Primary Care Provider: Addi Elizabeth Instructions Patient Instructions: ED Weakness (Uncertain Cause) Discharge Orders/Prescriptions Prescriptions: Continued acyclovir 400 MG tablet 400 mg PO BID Centrum Silver Women 1 EACH tablet 1 ea PO DAILY trazodone 50 mg tablet 50 mg PO QHS diphenoxylate-atropine [Lomotil] 2.5-0.025 mg tablet 1 tab PO 4X/DAY PRN (Reason: STOOL) meclizine 25 mg tablet 50 mg PO QHS levothyroxine [Synthroid] 125 mcg tablet 125 mcg PO DAILY metoprolol succinate 25 mg tablet extended release 24 hr 25 mg PO DAILY donepezil 10 mg tablet 10 mg PO DAILY oxybutynin chloride 5 mg tablet 5 mg PO TID duloxetine 60 mg capsule,delayed release(DR/EC) 60 mg PO DAILY diclofenac sodium 75 mg Tablet,Delayed Release (Dr/Ec) 75 mg PO BID potassium chloride 20 mEq Tablet,Er Particles/Crystals 20 meq PO BID raloxifene 60 mg Tablet 60 mg PO DAILY memantine 5 mg Tablet 5 mg PO QHS Viberzi 100 mg Tablet 100 mg PO BID omeprazole 20 MG capsule,delayed release(DR/EC) 20 mg PO BID meclizine 25 mg tablet 25 mg PO LUNCH PRN (Reason: DIZZINESS ) meclizine 25 mg tablet 25 mg PO DAILY lisinopril 40 mg tablet 40 mg PO DAILY Label Comments: take 1 tablet by mouth once daily Rx Instructions: from external fill list Referrals / Follow Up: Addi Elizabeth MD [Primary Care Provider] - 06/16/22 12:40 pm Disposition Disposition (needs filled in before D/C Order can be placed): Home, Self Care Charges/Coding Visit Charges Inpatient E&M: 92164 Disch Hosp >30min
--- NOTE | 2022-06-03 09:49 | PHA.DC.MR ---
Pharmacy Service has performed discharge medication reconciliation for this patient. The patient's discharge medication list was reviewed for discrepancies and discrepancies were resolved. Home Medications acyclovir 400 mg tablet 400 mg PO BID INFECTIONS 08/16/17 multivit with xrfqeixg-dlxy-PC-lutein 8 mg iron-400 mcg-300 mcg tablet (Centrum Silver Women) 1 ea PO DAILY HEALTH MAINTENANCE 08/16/17 diphenoxylate-atropine 2.5 mg-0.025 mg tablet (Lomotil) 1 tab PO 4X/DAY PRN STOOL 03/07/21 levothyroxine 125 mcg tablet (Synthroid) 125 mcg PO DAILY THYROID 03/07/21 meclizine 25 mg tablet 50 mg PO QHS DIZZINES 03/07/21 metoprolol succinate 25 mg tablet,extended release 24 hr 25 mg PO DAILY BLOOD PRESSURE 03/07/21 trazodone 50 mg tablet 50 mg PO QHS SLEEP 03/07/21 donepezil 10 mg tablet 10 mg PO DAILY MEMORY 09/11/21 duloxetine 60 mg capsule,delayed release 60 mg PO DAILY MOOD 09/11/21 oxybutynin chloride 5 mg tablet 5 mg PO TID OVERACTIVE BLADDER 09/11/21 diclofenac sodium 75 mg tablet,delayed release 75 mg PO BID PAIN 03/23/22 eluxadoline 100 mg tablet (Viberzi) 100 mg PO BID IRRITABLE BOWELS 03/23/22 memantine 5 mg tablet 5 mg PO QHS MEMORY 03/23/22 potassium chloride 20 mEq tablet,extended release(part/cryst) 20 meq PO BID SUPPLEMENT 03/23/22 raloxifene 60 mg tablet 60 mg PO DAILY OSTEOPEROSIS 03/23/22 meclizine 25 mg tablet 25 mg PO DAILY DIZZINESS 06/01/22 meclizine 25 mg tablet 25 mg PO LUNCH PRN DIZZINESS 06/01/22 omeprazole 20 mg capsule,delayed release 20 mg PO BID ACID REFLUX 06/01/22 lisinopril 40 mg tablet 40 mg PO DAILY blood pressure 06/03/22
== END 2022-06-03 10:57 | disposition home or self-care (01) | DRG 948 ==
LOC: ED 15:19 → MS3 15:29
PROVIDERS: Physician Assistant; Admitting Provider Student in an Organized Health Care Education/Training Program; Emergency Provider Emergency Medicine; PCP Family Medicine; Visit Provider Student in an Organized Health Care Education/Training Program
DX: R53.81 Other malaise (principal); C90.01 Multiple myeloma in remission; F03.90 Unspecified dementia, unspecified severity, without behavioral disturbance, psychotic disturbance, mood disturbance, and anxiety; E03.9 Hypothyroidism, unspecified; E78.2 Mixed hyperlipidemia; I10 Essential (primary) hypertension; F17.210 Nicotine dependence, cigarettes, uncomplicated; G89.29 Other chronic pain; R32 Unspecified urinary incontinence; R29.6 Repeated falls; Z66 Do not resuscitate; Z79.810 Long term (current) use of selective estrogen receptor modulators (SERMs); Z79.899 Other long term (current) drug therapy
CPT/HCPCS: 36415; 36591; 70450; 72125; 80048; 81001; 85025; 87086; 97161; 97166; 99285; J7030; J7050; A4216

== ENCOUNTER 2022-08-21 13:27 | Emergency (ER) | payer MEDICARE, OTHER, SELFPAY ==
[2022-08-21 13:29] VITALS: BP 158/76; PULSE 83; RESP 15; TEMP 37; O2SAT 85; BMI 20.2
--- NOTE | 2022-08-21 14:25 | EX.ED.DYSGE1 ---
HPI History of Present Illness Chief Complaint: Alt LOC [facility] Medical History Acquired iron deficiency anemia due to decreased absorption Anemia Anxiety and depression Benign paroxysmal positional vertigo Chemotherapy induced nausea and vomiting Chronic pain of both knees Chronic pain of both shoulders Dehydration Dementia without behavioral disturbance Diarrhea Dysuria Elevated fasting blood sugar Essential hypertension GERD (gastroesophageal reflux disease) GERD without esophagitis Hemangioma Herpes History of compression fracture of spine History of shingles HTN (hypertension) Hypercalcemia Hypomagnesemia Hypothyroid Immunodeficiency Irritable bowel syndrome with diarrhea Left ventricular hypertrophy Medication management Mixed hyperlipidemia Multiple myeloma Multiple myeloma in relapse Oral mucosal lesion Osteopenia, senile Port-A-Cath in place Smoker SOB (shortness of breath) Urgency incontinence Urinary frequency Home Medications acyclovir 400 mg tablet 400 mg PO BID INFECTIONS 08/16/17 [History Last Taken 06/01/22] multivit with uipzyatx-ztur-OE-lutein 8 mg iron-400 mcg-300 mcg tablet (Centrum Silver Women) 1 ea PO DAILY HEALTH MAINTENANCE 08/16/17 [History Last Taken 06/01/22] levothyroxine 125 mcg tablet (Synthroid) 125 mcg PO DAILY THYROID 03/07/21 [History Last Taken 06/01/22] meclizine 25 mg tablet 50 mg PO QHS DIZZINES 03/07/21 [History Last Taken 05/31/22] metoprolol succinate 25 mg tablet,extended release 24 hr 25 mg PO DAILY BLOOD PRESSURE 03/07/21 [History Last Taken 06/01/22] trazodone 50 mg tablet 50 mg PO QHS SLEEP 03/07/21 [History Last Taken 05/31/22] donepezil 10 mg tablet 10 mg PO DAILY MEMORY 09/11/21 [History Last Taken 06/01/22] duloxetine 60 mg capsule,delayed release 60 mg PO DAILY MOOD 09/11/21 [History Last Taken 09/11/21] eluxadoline 100 mg tablet (Viberzi) 100 mg PO BID IRRITABLE BOWELS 03/23/22 [History Last Taken 06/01/22] potassium chloride 20 mEq tablet,extended release(part/cryst) 20 meq PO BID SUPPLEMENT 03/23/22 [History Last Taken 06/01/22] meclizine 25 mg tablet 25 mg PO DAILY DIZZINESS 06/01/22 [History Last Taken 06/01/22] meclizine 25 mg tablet 25 mg PO LUNCH PRN DIZZINESS 06/01/22 [History Last Taken Unknown] omeprazole 20 mg capsule,delayed release 20 mg PO BID ACID REFLUX 06/01/22 [History Last Taken 06/01/22] lisinopril 40 mg tablet 10 mg PO DAILY blood pressure 06/03/22 [History Last Taken Unknown] baclofen 5 mg tablet 5 mg PO BID PRN Pain 08/21/22 [History Last Taken Unknown] Allergy/AdvReac Type Severity Reaction Status Date / Time bupropion [From Wellbutrin] AdvReac Other Verified 08/21/22 13:34 diphenhydramine AdvReac Itching Verified 08/21/22 13:34 [From Benadryl] morphine AdvReac Itching Verified 08/21/22 13:34 Surgical History H/O hernia repair S/P autologous bone marrow transplantation Social History Smoking Status: Current every day smoker tobacco type: cigarettes and e-cigarettes EXAM Physical Exam Const Vital Signs: 08/21/22 13:29 08/21/22 14:04 08/21/22 14:31 Temperature 98.6 F Temperature Source Oral Pulse Rate 83 70 Respiratory Rate 15 18 Respiratory Effort Normal Non-Labored Respiratory Pattern Normal Blood Pressure 158/76 H Blood Pressure Mean 103 Pulse Ox 85 100 Oxygen Delivery Method Room Air Nasal Cannula Oxygen Flow Rate (L/min) 2 08/21/22 16:22 08/21/22 16:10 Temperature Temperature Source Pulse Rate Respiratory Rate Respiratory Effort Respiratory Pattern Blood Pressure Blood Pressure Mean Pulse Ox 98 100 Oxygen Delivery Method Nasal Cannula Oxygen Flow Rate (L/min) 2 MDM MDM Lab Data Attestation: I reviewed the patient's lab results. Labs: Laboratory Results - last 24 hr 08/21/22 08/21/22 15:10 15:10 WBC 6.0 RBC 3.03 L Hgb 9.6 L Hct 29.4 L MCV 97.0 MCH 31.7 MCHC 32.7 RDW Std Deviation 49.8 H RDW Coeff of Willie 14.1 Plt Count 242 MPV 9.5 Immature Gran % (Auto) 0.500 Neut % (Auto) 66.3 Lymph % (Auto) 25.3 [place] % (Auto) 6.0 Eos % (Auto) 1.7 Baso % (Auto) 0.2 Absolute Neuts (auto) 4.0 Absolute Lymphs (auto) 1.53 Nucleated RBC % 0 Sodium 138 Potassium 3.9 Chloride 107 Carbon Dioxide 28.0 Anion Gap 3 L BUN 15 Creatinine 0.70 Estim Creat Clear Calc 45.01 Est GFR (MDRD) Af Amer 106 Est GFR (MDRD) Non-Af 87 BUN/Creatinine Ratio 21.5 H Glucose 68 L Calcium 8.6 Radiography Chest X-Ray - ED: 2 View, Read by ED Physician, No Acute Disease and Chronic Changes Diagnostic Testing: Clinical Impression(s) from Imaging Studies Chest X-Ray 08/21/22 14:50 IMPRESSION: Stable examination. No acute abnormality is seen. Electronically Signed: Braulio Angelo MD at 15:17 EDT , Rhythm Strip Rhythm Strip: Sinus Rhythm Rate: 75 Ectopy: None Management Discussion w/another healthcare provider: Informatics Specialist and marble chip terrazzo worker/Case management Treatment and Re-Evaluation Comments:: Seen and evaluated independently and in conjunction with nurse practitioner. Agree with notes above unless documented otherwise. Patient weak and decreased level of consciousness at home, not able to get up even with 's assistance, EMS called hypoxic prehospital and here 85% on room air not on home oxygen. Has a history of multiple myeloma, stopped treatments couple years ago, refused to be referred to [facility] for further treatment options and wanted to be DNR comfort care only. Has been referred to palliative care but they have not been able to see her yet. She has chronic low back pain related to the multiple myeloma and denies any other new symptoms or now including dyspnea, chest pain, cough. She takes an oxycodone tablet periodically for her back pain and has not taking an excessive amount compared to usual lately. Exam: Somnolent but arouses easily to voice and is able to converse. Alert and oriented x3. Nonfocal neurologic exam. Lungs clear to auscultation. Heart regular no tachycardia no murmur. Abdomen soft nontender nondistended. Plan: Discussed at length with patient at the bedside. She is amenable to some labs, chest x-ray, IV fluids but she does not want a lot of testing and initially was refusing everything that we offered. Discussed with Dr. Douglas with oncology who confirms she has a terminal diagnosis., And that palliative care was consulted, also offers that the patient had a PET scan about 1.5 weeks ago that showed nothing in her lungs. Patient confirms that if she had a pulmonary embolus she would not want to undergo any treatment for that, she is ready to when the moment comes, and interested in hospice consultation which we will do here in the emergency department. Reviewed the labs, they are unremarkable except for some anemia and mild hypoglycemia which we will reevaluate after she gets some fluids. We will see if we can wean her off of the oxygen which certainly could be due to a pulmonary embolus which we would not treat given her wishes if present so we are not going to evaluate her for that, but also which is more likely is a hypoventilation from oxycodone use. Hospice consultation pending. Patient became impatient, more alert, she took her oxygen off, I rechecked her pulse ox and she is 93-95% on room air, and she wants to leave. I had another discussion with her and her , she understands the ramifications of going home, possibly having a recurrent issue and her not being able to help or care for her, but he is okay taking her home, they do not want a wait for hospice to evaluate them anymore. We did discuss with hospice they are going to see and evaluate her at home. I am okay with this. Her blood sugar was 68, and I confirmed with the and her that she has been eating very poorly, mostly because her appetite is very poor which is understandable. We discussed that she needs to force herself to take in some type of caloric intake especially given the diarrhea she is having, to prevent episodes like this again. Sounds like the oxycodone she is taking is only about 1 pill/day and less likely that is the cause of this episode today more likely related to hypoglycemia since she is not eating. Offered to recheck her blood sugar prior to discharge which she refuses. Discharge Plan Triage Chief Complaint: Alt LOC ED Midlevel Provider: Jamshid Batres ED Provider: Arthur Robles Dx/Rx/DC Orders Clinical Impression: Hypoxemia, Multiple myeloma, Generalized weakness, Diarrhea, Chronic back pain, Hypoglycemia Instructions: ED Hypoglycemia, Nondiabetic Prescriptions: No Action acyclovir 400 MG tablet 400 mg PO BID Centrum Silver Women 1 EACH tablet 1 ea PO DAILY trazodone 50 mg tablet 50 mg PO QHS meclizine 25 mg tablet 50 mg PO QHS levothyroxine [Synthroid] 125 mcg tablet 125 mcg PO DAILY metoprolol succinate 25 mg tablet extended release 24 hr 25 mg PO DAILY donepezil 10 mg tablet 10 mg PO DAILY duloxetine 60 mg capsule,delayed release(DR/EC) 60 mg PO DAILY potassium chloride 20 mEq Tablet,Er Particles/Crystals 20 meq PO BID Viberzi 100 mg Tablet 100 mg PO BID omeprazole 20 MG capsule,delayed release(DR/EC) 20 mg PO BID meclizine 25 mg tablet 25 mg PO LUNCH PRN (Reason: DIZZINESS ) meclizine 25 mg tablet 25 mg PO DAILY lisinopril 40 mg tablet 10 mg PO DAILY Label Comments: take 1 tablet by mouth once daily Rx Instructions: from external fill list baclofen 5 mg tablet 5 mg PO BID PRN (Reason: Pain) Primary Care Provider: Addi Elizabeth Referrals: Addi Elizabeth MD [Primary Care Provider] - Activity Restrictions/Additional Instructions: We did discuss with hospice, they should contact you at home for further evaluation and treatment Disposition Disposition: Home, Self Care
[2022-08-21] MEDS: 0.9% Normal Saline 1,000 ML 999 ML IV (14:30)
[2022-08-21 14:31] VITALS: PULSE 70; RESP 18; O2SAT 100
--- NOTE | 2022-08-21 14:40 | EX.ED.DYSGE1 ---
HPI <AMY Salvador - Last Filed: 08/21/22 17:00> History of Present Illness Chief Complaint: Alt LOC Narrative Narrative: Patient is a 71-year-old female who is a DNR CCA who has history of end-stage multiple myeloma who is currently not receiving any more treatment presents the emergency department for weakness, lethargic. Patient does live with her , the states that he is having difficulty caring for her, patient is currently discontinuing all of her medications. Patient does have chronic back pain she does take Percocet. She is in palliative care however there is no specific treatment options with this group as of yet. The is having difficulty lifting her, cleaning her up. Per EMS, patient was hypoxic, not very responsive on arrival. Upon initial evaluation of myself, patient was on oxygen and did state that she wanted nothing completed. She wanted no testing done. [facility] <AMY Salvador - Last Filed: 08/21/22 17:00> [facility] Medical History Acquired iron deficiency anemia due to decreased absorption Anemia Anxiety and depression Benign paroxysmal positional vertigo Chemotherapy induced nausea and vomiting Chronic pain of both knees Chronic pain of both shoulders Dehydration Dementia without behavioral disturbance Diarrhea Dysuria Elevated fasting blood sugar Essential hypertension GERD (gastroesophageal reflux disease) GERD without esophagitis Hemangioma Herpes History of compression fracture of spine History of shingles HTN (hypertension) Hypercalcemia Hypomagnesemia Hypothyroid Immunodeficiency Irritable bowel syndrome with diarrhea Left ventricular hypertrophy Medication management Mixed hyperlipidemia Multiple myeloma Multiple myeloma in relapse Oral mucosal lesion Osteopenia, senile Port-A-Cath in place Smoker SOB (shortness of breath) Urgency incontinence Urinary frequency Home Medications acyclovir 400 mg tablet 400 mg PO BID INFECTIONS 08/16/17 [History Last Taken 06/01/22] multivit with [id number]-lutein 8 mg iron-400 mcg-300 mcg tablet (Centrum Silver Women) 1 ea PO DAILY HEALTH MAINTENANCE 08/16/17 [History Last Taken 06/01/22] levothyroxine 125 mcg tablet (Synthroid) 125 mcg PO DAILY THYROID 03/07/21 [History Last Taken 06/01/22] meclizine 25 mg tablet 50 mg PO QHS DIZZINES 03/07/21 [History Last Taken 05/31/22] metoprolol succinate 25 mg tablet,extended release 24 hr 25 mg PO DAILY BLOOD PRESSURE 03/07/21 [History Last Taken 06/01/22] trazodone 50 mg tablet 50 mg PO QHS SLEEP 03/07/21 [History Last Taken 05/31/22] donepezil 10 mg tablet 10 mg PO DAILY MEMORY 09/11/21 [History Last Taken 06/01/22] duloxetine 60 mg capsule,delayed release 60 mg PO DAILY MOOD 09/11/21 [History Last Taken 09/11/21] eluxadoline 100 mg tablet (Viberzi) 100 mg PO BID IRRITABLE BOWELS 03/23/22 [History Last Taken 06/01/22] potassium chloride 20 mEq tablet,extended release(part/cryst) 20 meq PO BID SUPPLEMENT 03/23/22 [History Last Taken 06/01/22] meclizine 25 mg tablet 25 mg PO DAILY DIZZINESS 06/01/22 [History Last Taken 06/01/22] meclizine 25 mg tablet 25 mg PO LUNCH PRN DIZZINESS 06/01/22 [History Last Taken Unknown] omeprazole 20 mg capsule,delayed release 20 mg PO BID ACID REFLUX 06/01/22 [History Last Taken 06/01/22] lisinopril 40 mg tablet 10 mg PO DAILY blood pressure 06/03/22 [History Last Taken Unknown] baclofen 5 mg tablet 5 mg PO BID PRN Pain 08/21/22 [History Last Taken Unknown] Allergy/AdvReac Type Severity Reaction Status Date / Time bupropion [From Wellbutrin] AdvReac Other Verified 08/21/22 13:34 diphenhydramine AdvReac Itching Verified 08/21/22 13:34 [From Benadryl] morphine AdvReac Itching Verified 08/21/22 13:34 Surgical History H/O hernia repair S/P autologous bone marrow transplantation Social History Smoking Status: Current every day smoker tobacco type: cigarettes and e-cigarettes ROS <AMY Salvador - Last Filed: 08/21/22 17:00> ROS ED ROS Narrative Constitutional: Negative for fever, chills, weight loss. Positive for weakness Eyes: Negative for vision loss, vision change, double vision ENT: Negative for any sore throat, ear pain, congestion Cardiovascular: Negative for any chest pain, tightness, palpitations Respiratory: Negative for any cough, sputum production, hemoptysis, dyspnea, dyspnea on exertion, orthopnea Gastrointestinal: Negative for any abdominal pain, nausea, vomiting, diarrhea, constipation, blood in stool, blood in vomit : Negative for any urinary frequency, dysuria, retention, blood in urine Muscle skeletal: Negative for any muscle joint pain, stiffness, myalgias, arthralgias, neck pain. Positive for back pain Neurological: Negative for any headache, syncope, numbness or tingling, dizziness Skin: Negative for any rashes, lumps, itching, abrasions, lacerations Psychiatric: Negative for any depression, anxiety, stress, suicidal ideation, homicidal ideation Hematologic: Negative for any easy bruising, excessive bruising, easy bleeding Allergies: Negative for any eczema, hives, rash EXAM <AMY Salvador - Last Filed: 08/21/22 17:00> Physical Exam Narrative Exam Narrative: Vital signs reviewed. Patient is alert and oriented x3, patient was somnolent however she was alert to verbal stimuli. With the oxygen, I do believe she improved. HEET: Head normocephalic atraumatic, TMs clear bilaterally. Posterior pharynx is clear, moist mucous membranes. Nares clear bilaterally. Neck: Supple with no lymphadenopathy or tenderness. No signs of meningismus, negative jolt sign. Cardiac: Regular rate and rhythm no murmurs gallops or rubs, equal peripheral pulses bilaterally. Respiratory: Lungs clear to auscultation bilaterally. No chest tenderness. Abdomen: Soft, nontender, nondistended. No abdominal bruit or pulsatile masses. No hepatosplenomegaly Extremities: No peripheral edema, no signs of gross trauma or deformity. Active full range of motion of all extremities. Neuro: Cranial nerves II through XII intact, no focal neurological deficits. Skin: Clean dry and intact with no rash, purpura, petechiae, vesicles or pustules. Backs/flank: No CVA tenderness, no midline spinal tenderness, no deformity. Psych: Normal mood and affect. No SI, HI or acute psychosis. Const Vital Signs: 08/21/22 13:29 08/21/22 14:04 08/21/22 14:31 Temperature 98.6 F Temperature Source Oral Pulse Rate 83 70 Respiratory Rate 15 18 Respiratory Effort Normal Non-Labored Respiratory Pattern Normal Blood Pressure 158/76 H Blood Pressure Mean 103 Pulse Ox 85 100 Oxygen Delivery Method Room Air Nasal Cannula Oxygen Flow Rate (L/min) 2 08/21/22 16:22 08/21/22 16:10 08/21/22 17:12 Temperature Temperature Source Pulse Rate Respiratory Rate Respiratory Effort Respiratory Pattern Blood Pressure Blood Pressure Mean Pulse Ox 98 100 98 Oxygen Delivery Method Nasal Cannula Oxygen Flow Rate (L/min) 2 <Dr. Arthur Robles MD - Last Filed: 08/22/22 07:07> Physical Exam Const Vital Signs: 08/21/22 13:29 08/21/22 14:04 08/21/22 14:31 Temperature 98.6 F Temperature Source Oral Pulse Rate 83 70 Respiratory Rate 15 18 Respiratory Effort Normal Non-Labored Respiratory Pattern Normal Blood Pressure 158/76 H Blood Pressure Mean 103 Pulse Ox 85 100 Oxygen Delivery Method Room Air Nasal Cannula Oxygen Flow Rate (L/min) 2 08/21/22 16:22 08/21/22 16:10 08/21/22 17:12 Temperature Temperature Source Pulse Rate Respiratory Rate Respiratory Effort Respiratory Pattern Blood Pressure Blood Pressure Mean Pulse Ox 98 100 98 Oxygen Delivery Method Nasal Cannula Oxygen Flow Rate (L/min) 2 MDM <AMY Salvador - Last Filed: 08/21/22 17:00> MDM Lab Data Labs: Laboratory Results - last 24 hr 08/21/22 08/21/22 15:10 15:10 WBC 6.0 RBC 3.03 L Hgb 9.6 L Hct 29.4 L MCV 97.0 MCH 31.7 MCHC 32.7 RDW Std Deviation 49.8 H RDW Coeff of Willie 14.1 Plt Count 242 MPV 9.5 Immature Gran % (Auto) 0.500 Neut % (Auto) 66.3 Lymph % (Auto) 25.3 Mcdonough % (Auto) 6.0 Eos % (Auto) 1.7 Baso % (Auto) 0.2 Absolute Neuts (auto) 4.0 Absolute Lymphs (auto) 1.53 Nucleated RBC % 0 Sodium 138 Potassium 3.9 Chloride 107 Carbon Dioxide 28.0 Anion Gap 3 L BUN 15 Creatinine 0.70 Estim Creat Clear Calc 45.01 Est GFR (MDRD) Af Amer 106 Est GFR (MDRD) Non-Af 87 BUN/Creatinine Ratio 21.5 H Glucose 68 L Calcium 8.6 Radiography Diagnostic Testing: Clinical Impression(s) from Imaging Studies Chest X-Ray 08/21/22 14:50 IMPRESSION: Stable examination. No acute abnormality is seen. Electronically Signed: Braulio Angelo MD at 15:17 EDT , Treatment and Re-Evaluation :: All radiologic examinations were read, reviewed by the emergency department attending. From these reads, a plan of care will be put in place. After speaking with the patient at length, patient is DNR CCA, patient was not wanting to have any testing done however after speaking with her, being more specific with what we want to do, she is open to different testing. Patient will receive basic laboratory values with a chest x-ray. She continue on oxygen. She will have a hospice evaluation here secondary to social work. Patient's is also at bedside, he was made aware of the plan. We did speak with the patient's oncologist who is in agreement. Patient's chest x-ray was unremarkable. Patient's laboratory values showed a CBC that was slightly anemic, however I believe this is causing her symptoms. Patient's chemistries were unremarkable. We did speak with social work, they do have a hospice consult. They no longer want to wait for hospice, the patient feels comfortable going home. Both myself as well as the attending had long conversations with the patient as well as the patient . They are in agreement, all questions were answered. I was able to sign a DNR CC for the patient and scanned into her chart. All questions answered, patient will be evaluated by hospice at home. <Dr. Arthur Robles MD - Last Filed: 08/22/22 07:07> [facility] Lab Data Labs: Laboratory Results - last 24 hr 08/21/22 08/21/22 15:10 15:10 WBC 6.0 RBC 3.03 L Hgb 9.6 L Hct 29.4 L MCV 97.0 MCH 31.7 MCHC 32.7 RDW Std Deviation 49.8 H RDW Coeff of Willie 14.1 Plt Count 242 MPV 9.5 Immature Gran % (Auto) 0.500 Neut % (Auto) 66.3 Lymph % (Auto) 25.3 Mcdonough % (Auto) 6.0 Eos % (Auto) 1.7 Baso % (Auto) 0.2 Absolute Neuts (auto) 4.0 Absolute Lymphs (auto) 1.53 Nucleated RBC % 0 Sodium 138 Potassium 3.9 Chloride 107 Carbon Dioxide 28.0 Anion Gap 3 L BUN 15 Creatinine 0.70 Estim Creat Clear Calc 45.01 Est GFR (MDRD) Af Amer 106 Est GFR (MDRD) Non-Af 87 BUN/Creatinine Ratio 21.5 H Glucose 68 L Calcium 8.6 Radiography Diagnostic Testing: Clinical Impression(s) from Imaging Studies Chest X-Ray 08/21/22 14:50 IMPRESSION: Stable examination. No acute abnormality is seen. Electronically Signed: Braulio Angelo MD at 15:17 EDT , Treatment and Re-Evaluation Comments:: Seen and evaluated independently and in conjunction with nurse practitioner. Agree with notes above unless documented otherwise. See my addendum accidentally in separate document same date/visit. Discharge Plan Triage Chief Complaint: Alt LOC ED Midlevel Provider: Jamshid Batres ED Provider: Arthur Robles Dx/Rx/DC Orders Clinical Impression: Hypoxemia, Multiple myeloma, Generalized weakness, Diarrhea, Chronic back pain, Hypoglycemia Instructions: ED Hypoglycemia, Nondiabetic Prescriptions: No Action acyclovir 400 MG tablet 400 mg PO BID Centrum Silver Women 1 EACH tablet 1 ea PO DAILY trazodone 50 mg tablet 50 mg PO QHS meclizine 25 mg tablet 50 mg PO QHS levothyroxine [Synthroid] 125 mcg tablet 125 mcg PO DAILY metoprolol succinate 25 mg tablet extended release 24 hr 25 mg PO DAILY donepezil 10 mg tablet 10 mg PO DAILY duloxetine 60 mg capsule,delayed release(DR/EC) 60 mg PO DAILY potassium chloride 20 mEq Tablet,Er Particles/Crystals 20 meq PO BID Viberzi 100 mg Tablet 100 mg PO BID omeprazole 20 MG capsule,delayed release(DR/EC) 20 mg PO BID meclizine 25 mg tablet 25 mg PO LUNCH PRN (Reason: DIZZINESS ) meclizine 25 mg tablet 25 mg PO DAILY lisinopril 40 mg tablet 10 mg PO DAILY Label Comments: take 1 tablet by mouth once daily Rx Instructions: from external fill list baclofen 5 mg tablet 5 mg PO BID PRN (Reason: Pain) Primary Care Provider: Addi Elizabeth Referrals: Addi Elizabeth MD [Primary Care Provider] - Activity Restrictions/Additional Instructions: We did discuss with hospice, they should contact you at home for further evaluation and treatment Disposition Disposition: Home, Self Care Discharge Date/Time: 08/21/22 17:13
--- NOTE | 2022-08-21 14:50 | RAD_ITS ---
STUDY: X-RAY CHEST REASON FOR EXAM: Female, 71 years old. Weakness, hypoxemia, hx mult myeloma TECHNIQUE: PA and lateral views of the chest. COMPARISON: Comparison is made with prior study dated March 23, 2022. FINDINGS: A right-sided ismael catheter is seen with the tip at the junction of the superior vena cava and right atrium. The lungs are clear and expanded. There is no demonstrated pleural abnormality. Normal size heart. Normal mediastinum and andrea. Normal visualized pulmonary arteries. There is atherosclerotic calcification of the aortic arch with tortuosity. There is demineralization of the osseous structures. There is degenerative osteoarthritis of the bilateral shoulders. Stable deformity of the proximal left humerus. There is no demonstrated abnormality of the visualized soft tissue structures of the upper abdomen. RAD/Chest PA and Lateral IMPRESSION: Stable examination. No acute abnormality is seen. Electronically Signed: Braulio Angelo MD at 15:17 EDT ,
--- NOTE | 2022-08-21 15:13 | CM.ED ---
Social Work SW introduced self and role to patient and patient's spouse. Pt reports she is wanting hospice referral. SW called hospice to refer patient and is awaiting return call. Charisma Guzman LIBRARY SALES CONSULTANT, CLOTH SHEARING SUPERVISOR
[2022-08-21 15:25] LABS: Absolute Lymphocyte Count 1.53 X10^3/uL (0.83-4.51); Basophil# 0.01 X10^3/uL; Basophil% 0.2 % (0-1); Eosinophils% 1.7 % (0-5); Hematocrit 29.4 % (37-47); Hemoglobin 9.6 g/dL (12.0-15.0); Lymphocyte # 1.53 X10^3/ul (0.83-4.51); Lymphocyte % 25.3 % (19-41); Mean Corp Hgb Conc 32.7 g/dL (32-36); Mean Corpuscular Hgb 31.7 pg (27.0-32.0); Mean Platelet Vol. 9.5 fl (6.2-12.0); Monocyte# 0.36 X10^3/uL; NRBC Flagged by Analyzer 0 % (0-5); Neutrophil # 4.01 X10^3/uL (2.7-7.7); Neutrophil % 66.3 % (47-70); Platelet Count 242 K/mm3 (150-450); RBC Distribution Width CV 14.1 % (11.6-14.6); RBC Distribution Width SD 49.8 fl (35.1-43.9); Red Blood Count 3.03 M/mm3 (4.2-5.4)
[2022-08-21 15:36] LABS: Anion Gap 3 (5-15); BUN 15 mg/dL (7-18); BUN/Creat Ratio 21.5 RATIO (10-20); Calcium,Total 8.6 mg/dL (8.5-10.1); Chloride 107 mmol/L (98-107); EST Glomerular Filtration Rate 87 mL/min (>60); Est Glom Filt Rate - Afr Amer 106 mL/min (>60); Estimated Creatinine Clearance 45.01 ml/min; Glucose 68 mg/dL (74-106); Potassium 3.9 mmol/L (3.5-5.1); Sodium Level 138 mmol/L (136-145)
[2022-08-21 16:10] VITALS: O2SAT 100
[2022-08-21 16:22] VITALS: O2SAT 98
--- NOTE | 2022-08-21 16:30 | CM.ED ---
Social Work SW spoke with hospice and provided patient demographics. SW faxed requested documents to hospice. Hospice to call patient number to schedule appointment. Charisma Guzman TRIMMER HAND, BIOLOGICAL AIDE
[2022-08-21 17:12] VITALS: O2SAT 98
== END 2022-08-21 17:13 | disposition home or self-care (01) ==
PROVIDERS: Emergency Provider Emergency Medicine; PCP Family Medicine; Visit Provider Emergency Medicine
DX: R09.02 Hypoxemia (principal); C90.00 Multiple myeloma not having achieved remission; E78.2 Mixed hyperlipidemia; I10 Essential (primary) hypertension; R19.7 Diarrhea, unspecified; Z51.5 Encounter for palliative care; E16.2 Hypoglycemia, unspecified; F17.210 Nicotine dependence, cigarettes, uncomplicated; M54.9 Dorsalgia, unspecified; G89.29 Other chronic pain; F17.290 Nicotine dependence, other tobacco product, uncomplicated; Z66 Do not resuscitate
CPT/HCPCS: 71046; 80048; 85025; 96360; 99285; J7030; A4216